=== PATIENT | male | born 1960 | race Caucasian/White ===

== ENCOUNTER 2023-07-25 18:45 | Emergency (ER) | payer MEDICARE, OTHER, SELFPAY ==
[2023-07-25 18:49] VITALS: BP 89/49
[2023-07-25 18:51] VITALS: BP 89/49; BMI 24.9
[2023-07-25 19:00] VITALS: BP 93/58
--- NOTE | 2023-07-25 19:11 | ED.GENMED ---
History of Present Illness
General
Chief Complaint: Catheter/Tube Problem
Source: patient and longterm
Exam Limitations: none
Time Seen by Provider: 07/25/23 18:54
Nursing documentation reviewed up to this point in time: agreed with
Travel History
Have you had any contact with someone who has COVID-19?: No
Do you have any symptoms of coronavirus? Fever > 100 degrees, chills, cough, shortness of breath, sore throat, loss of taste or smell, muscle aches, or headache?: No
History of Present Illness
History of Present Illness:
63-year-old male with a past medical history as documented presents from his longterm after PEG tube became dislodged. Patient has had chronic PEG tube for 4 years�he says it was initially placed due to dysphagia but he has since had
improvement in swallowing and has not used the PEG tube for quite some time. He says that today it was accidentally pulled out. He says that there was initially some bleeding from the site and it seems to have stopped and he does not have any pain
or any other complaints. He says he does not wish to have it replaced but he was sent to the emergency room to have the site evaluated.
Past History
Past History
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
ED Past Surgical History: Bowel resection (With colostomy) and Urological (Suprapubic Moctezuma catheter, nephrostomy)
Social History
Tobacco: Non-smoker
Alcohol: None
Drug: None
Personal:
Living: longterm
Employment: Not employed
Family History
Family History: Other (Reviewed and noncontributory)
Review of Systems
Review of Systems
All Other Systems: ROS reviewed and negative except as documented in HPI and ROS
ABD/GI: Reports other (Dislodged chronic PEG tube)
Phy Exam
Physical Exam
Physical Exam:
General: Awake, alert, oriented x3; chronically ill-appearing
Head: Normocephalic, atraumatic
Eyes: Conjunctiva normal
Throat: Airway intact, handling secretions
Neck: Trachea midline
Lungs: Breathing comfortably no distress
Heart: Regular rate
Abd: Soft, non distended, nontender to deep palpation; he has PEG site with no leakage, no bleeding, no signs of infection
Scores
Heart Failure Risk
Heart Failure Risk Score: Not Applicable
Heart Score for Chest Pain Patients
STEMI patient?: Not applicable
Withdrawal Assessment of Alcohol
Withdrawal Assessment Completed?: Not applicable
Course
Vital Signs
Initial and Last Documented VS:
Initial Vital Signs
BP
89/49
07/25/23 18:49
Last Documented Vital Signs
Temp Pulse Resp BP Pulse Ox
36.6 C 55 12 93/58 98
07/25/23 18:51 07/25/23 18:51 07/25/23 18:51 07/25/23 19:00 07/25/23 19:00
MDM/Problems Addressed
Differential Diagnosis Includes:
PEG dislodged
MDM/Problems Addressed:
63-year-old male with a chronic PEG tube presents after it was accidentally dislodged today. He had some slight bleeding at the site earlier which has subsided. He does not wish to have the PEG tube replaced. He has no pain or complaints here in
the emergency room. Vital signs stable�he does have some hypotension which is a chronic issue and he is on midodrine. Will plan to apply clean dressing and discharge back to longterm.
Chronic conditions affecting care:
Quadriplegia
*Pulse Oximetry
Patient hypoxic: no
*Critical Care Note
Total Time (30-74mins, 75-104mins- exclusive of procedures): Not Applicable
Data Reviewed
Source: patient and longterm
ED Attending Note
-
Portions of this chart may have been created with voice recognition software.� Occasional wrong word or��sound alike� substitutions may have occurred due to the inherent limitations of voice recognition software.
Discharge Plan
Departure
Patient Disposition: Home (Routine Discharge)
Date of Disposition: 07/25/23
Time of Disposition: 19:21
Patient with high blood pressure during this ER visit?: No
Discharge Problem:
Complaint associated with gastric tube
Instructions: Wound Care ED
Prescriptions:
No Action
acetaminophen 325 MG tablet
650 mg PO Q4H PRN (Reason: mild pain/temp>100F)
polyethylene glycol 3350 17 GRAMS powder in packet
17 grams PO HS PRN (Reason: constipation)
miconazole nitrate [Zeasorb AF] 71 GM powder
1 applic topical BID
Artificial Tears (cmc) 1 % Drops
1 drp BOTH EYES Q6H PRN (Reason: dry eyes)
citalopram 10 mg Tablet
10 mg PO DAILY
midodrine 5 mg Tablet
2.5 mg PO Q4HPRN PRN (Reason: SBP less than 80 ) Qty: 10 0RF
tizanidine 4 mg tablet
8 mg PO Q8
midodrine 5 mg tablet
5 mg PO TID
Rx Instructions:
hold if BP >130
guaifenesin [Siltussin SA] 100 mg/5 mL liquid
200 mg PO QID
baclofen 20 mg tablet
20 mg PO Q6
gabapentin 300 mg capsule
600 mg PO TID
loperamide 2 mg Capsule
2 mg PO Q8HPRN PRN (Reason: diarrhea )
ipratropium-albuterol 0.5 mg-3 mg(2.5 mg base)/3 mL Solution For Nebulization
3 ml INHALATION Q6
ipratropium-albuterol 0.5 mg-3 mg(2.5 mg base)/3 mL Solution For Nebulization
3 ml INHALATION Q4H PRN (Reason: SOB, wheezing)
dexamethasone 6 mg tablet
6 mg PO DAILY Qty: 4 0RF
amoxicillin-pot clavulanate 875-125 mg tablet
1 tab PO BID Qty: 3 0RF
lorazepam 0.5 mg tablet
0.5 mg PO DAILY Qty: 3 0RF
Activity Restrictions/Additional Instructions:
Thank you for visiting the Emergency Department at [facility].
1. Please schedule a follow up appointment as directed. Call first thing tomorrow morning to make an appointment.
2. If indicated, please take your medications as instructed and indicated on discharge paperwork.
3. If any of your symptoms do not improve, or persist, or become more severe within 6-12 hours, please return to the emergency department for further care.
4. Please return to the emergency department if you develop a headache, neck pain/stiffness, fever greater than 100.4F, chest pain, shortness of breath, persistent nausea, vomiting, slurred speech, difficulty walking, numbness/tingling, weakness,
signs of infection or any other symptoms that are worrisome to you.
Please call [phone] if you have any questions.
Interventions
Interventions:
*Risk Screen - Suicide Last Done: 07/25/23 18:51
*General Assessment Last Done: 07/25/23 18:51
*Neglect/Abuse Screening Last Done: 07/25/23 18:51
*ED COVID-19 Vaccine History Last Done: 07/25/23 18:51
KV-Nykfyz-Pjlrutxwcd Assessment Last Done: 07/25/23 18:59
ED-Male Genitourinary Assessment Last Done: 07/25/23 18:59
Discharge Date and Time
Print Language: ROMANSH
[2023-07-25 20:00] VITALS: BP 96/63
[2023-07-25 21:00] VITALS: BP 97/64
== END 2023-07-25 21:28 | disposition home or self-care (01) ==
LOC: EMR 18:45
PROVIDERS: EMERGENCY PHYSICIAN Emergency Medicine; FAMILY PHYSICIAN Family Medicine
DX: K94.20 Gastrostomy complication, unspecified (principal); I95.9 Hypotension, unspecified; G82.50 Quadriplegia, unspecified
CPT/HCPCS: 99283

== ENCOUNTER 2023-12-21 13:39 | Inpatient (IN) | payer MEDICARE, OTHER, SELFPAY ==
[2023-12-21] VITALS (20 sets, daily range): BP systolic 60–165; BP diastolic 43–86; BMI 20.8
[2023-12-21] MEDS: NSS 2000 ML IV (11:20)
[2023-12-21] MEDS: ZOSYN 100 IV ×3 (11:21→23:35)
[2023-12-21 11:32] LABS: Urine Albumin 1+ (Neg - Trace); Urine Bilirubin Negative (Negative); Urine Character Very Cloudy (Clear); Urine Color Yellow; Urine Glucose Negative (Negative); Urine Ketone 1+ (Negative); Urine Leukocyte 2+ (Negative); Urine Nitrite Positive (Negative); Urine Occult Blood 3+ (Negative); Urine Urobilinogen Negative (Neg - 1+)
[2023-12-21 11:33] LABS: % Basophils 0.1 % (0-2); % Immature Granulocytes 0.5 % (0-0.5); % Lymphocytes 5.8 % (20.5-51.1); % Monocytes 5.7 % (1.7-9.3); % Neutrophils 87.9 % (42.2-75.2); Absolute Immature Granulocytes 0.1 10^3/uL (0-0.05); Absolute Lymphocytes 0.9 10^3/uL (1.2-3.4); Absolute Monocytes 0.9 10^3/uL (0.1-0.6); Absolute Neutrophils 13.5 10^3/uL (1.4-6.5); Hemoglobin 11.7 g/dL (13.0-18.0); Mean Corp Hgb Conc. 32.5 g/dL (33.0-37.0); Mean Corpuscular Hgb 28.3 pg (27.0-31.0); Mean Corpuscular Volume 87.2 fL (80.0-94.0); Mean Platelet Volume 9.3 fL (7.4-10.4); Nucleated Red Blood Cells % 0 % (-); Platelet Count 232 10^3/uL (130-400); Red Blood Cell Count 4.13 10^6/uL (4.70-6.10); Red Cell Dist. Width 15.4 % (11.5-14.5); White Blood Cell Count 15.3 10^3/uL (4.8-10.8)
[2023-12-21 11:37] LABS: Venous Blood Gas B.E. 6.1 mmol/L (-4 to +4); Venous Blood Gas HCO3 30.6 mmol/L (22-27); Venous Blood Gas O2 Sat % 99.7 %; Venous Blood Gas pCO2 43 mmHg (35-48); Venous Blood Gas pH 7.46 (7.32-7.43); Venous Blood Gas pO2 131 mmHg (30-50)
[2023-12-21 11:40] LABS: Lactic Acid 1.3 mmol/L (0.7-2.0)
[2023-12-21 11:41] LABS: ALT (SGPT) 13 U/L (0-50); AST (SGOT) 20 U/L (17-59); Albumin 3.8 g/dl (3.5-5.0); Alkaline Phosphatase 106 U/L (38-126); Blood Urea Nitrogen 34 mg/dl (9-20); Calcium 9.2 mg/dl (8.4-10.2); Carbon Dioxide 23 mmol/L (22-30); Chloride 104 mmol/L (98-107); Glucose 140 mg/dl (70-99); Potassium 4.1 mmol/L (3.5-5.1); Sodium 140 mmol/L (135-145); Total Bilirubin 0.7 mg/dl (0.2-1.3); Total Protein 6.9 g/dl (6.3-8.2); Urine Bacteria Many (Negative); Urine Squamous Cell 0-2 /LPF (Few); eGFR > 60.00
--- NOTE | 2023-12-21 11:48 | ED.GENMED ---
History of Present Illness
General
Chief Complaint: Pneumonia Symptoms
Time Seen by Provider: 12/21/23 10:58
History of Present Illness
History of Present Illness:
63-year-old male with history of CVA with paraplegia and hypotension on midodrine presenting to the emergency department for concern of pneumonia. Patient presents from nursing facility where he was recently diagnosed with pneumonia 2 days ago,
started on a Z-Shalom. Patient however without symptom improvement. Per medics, noted to be hypotensive with low oxygenation. Per nursing facility, febrile prior to arrival, did receive Tylenol. Patient admits to cough and difficulty breathing,
otherwise denies chest pain or abdominal pain. He denies additional acute medical complaints.
Past History
Past History
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
ED Past Surgical History: Bowel resection (With colostomy) and Urological (Suprapubic Moctezuma catheter, nephrostomy)
Social History
Tobacco: Non-smoker
Alcohol: None
Drug: None
Personal:
Living: group home
Employment: Not employed
Family History
Family History: Other (Reviewed and noncontributory)
Phy Exam
Physical Exam
Physical Exam:
General: Well-appearing, no clinical signs of dehydration, nontoxic and in no acute distress
HEENT: protecting airway
Neck: appears supple
CV: Tachycardic
Resp: No accessory muscle use, no increased work of breathing, rhonchorous breath sounds bilaterally
Abd: Soft and non-distended, no tenderness to palpation, normal bowel sounds
Extremities: No deformities, no swelling
Neuro: alert, bilateral upper and lower extremity contractures, no motor, reported as chronic
: deferred
Rectal: deferred
Psych: Normal affect
Skin: Intact
Course
Orders/Labs/Results
Orders:
Orders
12/21/23 10:59
Electrocardiogram (*1) Urgent
Reason for Study: Other
Other Reason for Exam: Possible Sepsis
EKG- Treatment ONCE
CR Chest Portable - 1 View Urgent
Comment:
Reason For Exam: sob
Reason Study Needs to be Portable: Unable to Transport
12/21/23 11:12
0.9% Sodium Chloride 1000 ml [Nss] 2,000 ml IV NOW STA
Piperacillin/Tazo 4.5 Gram [Zosyn] 4.5 gram in 100 ml IV NOW
12/21/23 11:17
Complete Blood Count/With Diff Urgent
Comprehensive Metabolic Panel Urgent
Lactic Acid Q4H
Comment: ON ICE, CANCEL 2ND ORDER IF FIRST LACTIC ACID LEVEL <2
Urinalysis Reflex To Culture Urgent
Date Specimen was Collected: 12/21/23
Time Specimen was Collected: 10:59
Urine Microscopic Reflex Cult Urgent
Venous Blood Gas Urgent
%Oxygen/Room Air: 30
Blood Culture Urgent
ANDREW Source: Blood/Venous
Specimen Description:
Urine Culture Urgent
ANDREW Source: U
Specimen Description:
Date Specimen was Collected: 12/21/23
Time Specimen was Collected: 10:59
12/21/23 11:20
COVID-19 Antigen Urgent
Source: Nasal Swab
Blood Culture Routine
ANDREW Source: Blood/Venous
Specimen Description:
Influenza A+B Rapid Molecular Urgent
ANDREW Source: Nasal Swab
Specimen Description:
Abnormal Lab Results
12/21/23
11:17
WBC 15.3 H 10^3/uL
(4.8-10.8)
RBC 4.13 L 10^6/uL
(4.70-6.10)
Hgb 11.7 L g/dL
(13.0-18.0)
Hct 36.0 L %
(39.0-52.0)
MCHC 32.5 L g/dL
(33.0-37.0)
RDW 15.4 H %
(11.5-14.5)
Abs Immat Gran (auto) 0.1 H 10^3/uL
(0-0.05)
Absolute Neuts (auto) 13.5 H 10^3/uL
(1.4-6.5)
Absolute Lymphs (auto) 0.9 L 10^3/uL
(1.2-3.4)
Absolute Monos (auto) 0.9 H 10^3/uL
(0.1-0.6)
Neutrophils % 87.9 H %
(42.2-75.2)
Lymphocytes % 5.8 L %
(20.5-51.1)
VBG pH 7.46 H
(7.32-7.43)
VBG pO2 131 H mmHg
(30-50)
VBG HCO3 30.6 H mmol/L
(22-27)
BUN 34 H mg/dl
(9-20)
Creatinine 0.4 L mg/dL
(0.7-1.3)
Glucose 140 H mg/dl
(70-99)
Urine Ketones 1+ A
(Negative)
Ur Occult Blood Reflex 3+ A
(Negative)
Urine Nitrite (Reflex) Positive A
(Negative)
Leukocyte Esterase Rfl 2+ A
(Negative)
Urine RBC 11-15 A /HPF
(0-2)
Urine WBC (Reflex) 11-15 A /HPF
(0-5)
Urine Bacteria (Reflex) Many A
(Negative)
Urine Albumin (Reflex) 1+ A
(Neg - Trace)
12/21/23 11:17
12/21/23 11:17
Vital Signs
Initial and Last Documented VS:
Initial Vital Signs
Pulse Ox
94
12/21/23 10:56
Last Documented Vital Signs
Temp Pulse Resp BP Pulse Ox
100.5 F H 101 21 72/47 89
12/21/23 11:03 12/21/23 11:30 12/21/23 11:30 12/21/23 11:30 12/21/23 11:03
MDM/Problems Addressed
MDM/Problems Addressed:
63-year-old male with history of CVA with quadriplegia presenting to the emergency department for concern of pneumonia. Vital signs on arrival significant for tachycardia, fever, hypoxia, hypotension.
On exam, patient is awake and alert, no apparent distress, however unstable vital signs. Patient with rhonchorous breath sounds bilaterally. Vital signs concerning for infection, though specifically septic shock, likely from respiratory source.
IV access obtained bilaterally. Plan for cultures, IV fluids, lactic acid. Given known source, will start broad-spectrum antibiotics.
12:00 - Lactic acid within normal limits. Patient does have leukocytosis and chest x-ray consistent with pneumonia. Patient remains hypotensive, however fluid responsive. Again meeting criteria for septic shock, receiving full 30 cc/kg fluid
bolus. Plan for admission.
*EKG
Interpreted by ED Provider?: Yes
EKG Intrepretation Date: 12/21/23
EKG Intrepretation Time: 11:52
Interpretation: normal
Comparison EKG: no changes (12/21/22)
Heart Rate: 104
Rate: tachycardiac
Rhythm: sinus
[place]: normal axis
Interval: normal interval
QRS Pattern: normal QRS
Ischemia: no ischemia
*Critical Care Note
Total Time (30-74mins, 75-104mins- exclusive of procedures): 45
comment:
The high probability of a clinically significant, sudden or life threatening deterioration of the respiratory and distributive system(s) required my full and direct attention, intervention and personal management. The aggregate critical care time
was 45 minutes. This time is in addition to time spent performing reported procedures but includes the following:
[x] Data Review and interpretation
[x] Patient assessment and monitoring of vital signs
[x] Documentation
[x] Medication orders and management
ED Attending Note
-
Portions of this chart may have been created with voice recognition software.� Occasional wrong word or��sound alike� substitutions may have occurred due to the inherent limitations of voice recognition software.
Discharge Plan
Departure
Prescriptions:
No Action
acetaminophen 325 MG tablet
650 mg PO Q6HPRN PRN (Reason: mild pain/temp>100F)
polyethylene glycol 3350 17 GRAMS powder in packet
17 grams PO HSPRN PRN (Reason: constipation)
miconazole nitrate [Zeasorb AF] 71 GM powder
1 applic topical BID
citalopram 10 mg Tablet
10 mg PO DAILY
tizanidine 4 mg tablet
8 mg PO QID
baclofen 20 mg tablet
40 mg PO HS
loperamide 2 mg Capsule
2 mg PO Q8HPRN PRN (Reason: diarrhea )
ipratropium-albuterol 0.5 mg-3 mg(2.5 mg base)/3 mL Solution For Nebulization
3 ml INHALATION R QID
ipratropium-albuterol 0.5 mg-3 mg(2.5 mg base)/3 mL Solution For Nebulization
3 ml INHALATION R Q4HPRN PRN (Reason: SOB, wheezing)
lorazepam 0.5 mg tablet
0.5 mg PO DAILY Qty: 3 0RF
ketoconazole [Nizoral] 2 % Shampoo
1 applic TOPICAL WE
lidocaine 4 % Adhesive Patch,Medicated
1 patch TOPICAL DAILYPRN PRN (Reason: r proximal humerus)
azithromycin 250 mg Tablet
250 mg PO HS
baclofen 20 mg Tablet
20 mg PO BID
gabapentin 800 mg Tablet
800 mg PO TID
ibuprofen [Advil] 200 mg Tablet
600 mg PO Q6HPRN PRN (Reason: high temp/mild pain)
magnesium citrate Solution
150 ml PO BIDPRN PRN (Reason: if no bm aftr miralax)
midodrine 2.5 mg Tablet
2.5 mg PO Q4HPRN PRN (Reason: sbp less than 80)
nystatin 100,000 unit/gram Powder
1 applic TOPICAL DAILYPRN PRN (Reason: peg tub- removal site)
nystatin 100,000 unit/gram Powder
1 applic TOPICAL DAILY
Rx Instructions:
peg tube-removal site
carboxymethylcellulose sodium 1 % Drops
1 drp BOTH EYES Q6HPRN PRN (Reason: dry eyes)
midodrine 5 mg tablet
5 mg PO TID
Referrals:
Mansoor Aguilar MD [Family Provider] -
Interventions
Interventions:
*Risk Screen - Suicide Last Done: 12/21/23 10:56
*General Assessment Last Done: 12/21/23 10:56
*Neglect/Abuse Screening Last Done: 12/21/23 10:56
*ED COVID-19 Vaccine History Last Done: 12/21/23 10:56
ED- Cardiac Assessment Last Done: 12/21/23 10:56
ED- Pulmonary Assessment Last Done: 12/21/23 10:56
Discharge Date and Time
Print Language: SPANISH
[2023-12-21 11:55] LABS: COVID-19 Antigen Negative (Negative)
--- NOTE | 2023-12-21 12:43 | HPS.HSE ---
Family Physician
-
Family Physician: Mansoor Aguilar
Chief Complaint
-
sob
lethargic.
History of Present Illness
63-year-old male with history of CVA with quadriplegic, hypotension on midodrine presenting to the emergency department for concern of pneumonia. Patient presents from nursing facility where he was recently diagnosed with pneumonia 2 days ago,
started on a Z-Shalom. Patient however without symptom improvement. patient fever and sleeping more than usual. he was very weak and tired. at [facility], he required 2l of oxygen. at present patient denied headache, dizziness, syncopal episode.
patient stated improvement in cough. Patient denied any chest pain or short of breath. Patient denied any abdominal pain, nausea, vomiting, diarrhea. He has a Moctezuma catheter in place.
. Patient was noted hypotensive and hypoxic. patient received Zosyn, fluids admitting for further management.
Medical History
Past Medical History
Past Medical History: Reports Other
Additional Past Medical History:
acute flaccid quadriplegia
Bladder spasm
Colostomy
Pneumonia
Oropharyngeal dysphagia
Controlled type 2 diabetes
Muscle spasm
Moctezuma cath
Past Surgical History: Reports None
Social History
Tobacco: Non-smoker
Alcohol: None
Drug: None
Personal:
Living: With Family
Family History
Family History: Not pertinent
Allergies / Home Medications
Allergies reflects when Allergies were last updated in [facility].
Home Medications with original date entered in [facility]
Allergy/Medication List:
Allergies
Allergy/AdvReac Type Severity Reaction Status Date / Time
adhesive Allergy Rash Verified 06/26/22 17:19
latex Allergy SEE BELOW Verified 06/26/22 17:19
vancomycin Allergy trunk/back Verified 06/26/22 17:19
red rash
Home Medications
acetaminophen 325 mg tablet 650 mg PO Q6HPRN PRN mild pain/temp>100F 08/30/21
miconazole nitrate 2 % topical powder (Zeasorb AF) 1 applic topical BID groin irritation 09/21/21
polyethylene glycol 3350 17 gram oral powder packet 17 grams PO HSPRN PRN constipation 09/21/21
citalopram 10 mg tablet 10 mg PO DAILY depression/anxiety 05/22/22
baclofen 20 mg tablet 40 mg PO HS Muscle Spasms 12/21/22
ipratropium 0.5 mg-albuterol 3 mg (2.5 mg base)/3 mL nebulization soln 3 ml inhalation R Q4HPRN PRN SOB, wheezing 12/21/22
ipratropium 0.5 mg-albuterol 3 mg (2.5 mg base)/3 mL nebulization soln 3 ml inhalation R QID Lung/Breathing Issues 12/21/22
loperamide 2 mg capsule 2 mg PO Q8HPRN PRN diarrhea 12/21/22
tizanidine 4 mg tablet 8 mg PO QID Muscle Spasms 12/21/22
lorazepam 0.5 mg tablet 0.5 mg PO DAILY Multiple Sclerosis #3 tabs 12/26/22
azithromycin 250 mg tablet 250 mg PO HS infection 12/21/23
baclofen 20 mg tablet 20 mg PO BID muscle spasms 12/21/23
carboxymethylcellulose sodium 1 % eye drops 1 drp BOTH EYES Q6HPRN PRN dry eyes 12/21/23
gabapentin 800 mg tablet 800 mg PO TID pain 12/21/23
ibuprofen 200 mg tablet (Advil) 600 mg PO Q6HPRN PRN high temp/mild pain 12/21/23
ketoconazole 2 % shampoo 1 applic topical WE Skin Issues 12/21/23
lidocaine 4 % topical patch 1 patch topical DAILYPRN PRN r proximal humerus 12/21/23
magnesium citrate 150 ml PO BIDPRN PRN if no bm aftr miralax 12/21/23
midodrine 2.5 mg tablet 2.5 mg PO Q4HPRN PRN sbp less than 80 12/21/23
midodrine 5 mg tablet 5 mg PO TID blood pressure 12/21/23
nystatin 100,000 unit/gram topical powder 1 applic topical DAILY Skin Issues 12/21/23
nystatin 100,000 unit/gram topical powder 1 applic topical DAILYPRN PRN peg tub- removal site 12/21/23
Review of Systems
-
Constitutional: Reports No Symptoms
EENT: Reports No Symptoms
Respiratory: Reports Cough and Trouble Breathing
Cardiac: Reports No Symptoms
Abdomen/GI: Reports No Symptoms
: Reports Moctezuma
Musculoskeletal: Reports No Symptoms
Skin: Reports No Symptoms
Neurological: Reports No Symptoms
Endocrine: Reports No Symptoms
Hematologic/Lymphatic: Reports No Symptoms
Psych: Reports No Symptoms
Physical Exam
Vital Signs
Vital Signs
Temp Pulse Resp BP Pulse Ox
100.5 F H 90 15 91/58 89
12/21/23 11:03 12/21/23 12:30 12/21/23 12:30 12/21/23 12:30 12/21/23 11:03
Physical Exam
General: Well Developed, Well Nourished and No Apparent Distress
HEENT: NormoCephalic, Moist mucous membranes and Atraumatic
Respiratory: Rhonchi
Cardiac: S1/S2 and Regular Rhythm; No Murmur or Rub
GI: Soft, Non Tender, Non Distended and Normal Bowel Sounds; No Organomegaly
Rectal: Deferred by Provider
Musculoskeletal: No Clubbing, No Cyanosis, No Edema and Other ( quadriplegic)
Skin: No Rash
Neuro: AO x 3 and Nonfocal/grossly intact
Psych: Calm
Laboratory Results
-
12/21/23 11:17
12/21/23 11:17
Laboratory Results
Lactic Acid Cancelled 12/21/23 15:00
Total Bilirubin 0.7 mg/dl (0.2-1.3) 12/21/23 11:17
AST 20 U/L (17-59) 12/21/23 11:17
ALT 13 U/L (0-50) 12/21/23 11:17
Alkaline Phosphatase 106 U/L (38-126) 12/21/23 11:17
Data Reviewed
-
Diagnostic Radiology: Report Reviewed by me
Lab Data: Labs Reviewed by me
Impression/Plan
-
#acute hypoxic respiratory failure
# severe sepsis as evident by hypotension and tachycardia, leucocytosis, fever
- COVID-negative, negative for influenza and
- chest x-ray with impression of Chronic atelectasis of the left lower lobe.Increased reticulonodular markings throughout the right lung, patchy distribution. See above discussion.
- blood culture sent from ER
- continue IV Zosyn
- fluids continued
- continue supplemental oxygen to keep sat greater than 92
-Wean as tolerated
-Nebs as needed
#Anemia of chronic disease
- hemoglobin stable at 11.7
-No active bleeding
-Continue to monitor
#UTI likely Moctezuma cath associated.
#chronic urinary retention, patient has Moctezuma cath
-Zosyn continued
#Muscle Spasms due to Quadriplegia
-Continue Tizanidine
-Continue gabapentin
-Continue baclofen
#Chronic hypotension secondary to autonomic dysfunction polypharmacy
-Continue Midodrine.
#Spastic quadriplegia with ambulatory dysfunction secondary to cervical cord infarction status post colostomy and suprapubic catheter
#Hx of Bowel resection
-Colostomy care
-Dysphagia diet
-Dietary consult
-speech consult
#Anxiety/Depression
-Continue Lorazepam
-Continue Celexa
�
DVT prophylaxis: heparin sq
DNR/DNI
--- NOTE | 2023-12-21 13:00 | W.PN.UPDATE ---
Update Note
Progress Note Update
This note serves as an addendum to the H&P by flight hostess ZORA Maile ROCHA
HPI:
63 M from the facility HX CVA with quadriplegia, COPD, chronic hypotensive on midodrine evaluating for concern with sepsis.
Recently Dxed PNA 2 days ago. Currently on on Z-tomas.
Per nursing facility, febrile prior to arrival, did receive Tylenol.
ROS: cough and difficulty breathing. No chest pain or abdominal pain.
At ER: Not toxic looking. T 100.5 Hypoxic, tachy, hypotensive 91/58 but BP is improving with fluids. POx 89 % on RA
PE: b/l diffuse rhonchi on ant chest , but stable on nasal cannula.
Labs: leukocytosis [facility] 15.3 . Lactic acid is normal. BUN 34. Nl GFR
NEG Covid
VB.46/pCO2 43/ pO2 131
UA abnormal not definitive for UTI
CXR: Chronic atelectasis of the left lower lobe. Increased reticulonodular markings throughout the right lung, patchy distribution.
ASSESSMENT & PLAN
Sepsis
Presumed R sided PNA / Presumed HAP with associated hypoxia Plus or minus CAUTI
Acute on chr Hypotensive
Acute hypoxic RI
Abn UA
- BCx and UCx sent
- Septic fluid with IV NS
- Empiric Zosyn
- O2 support - on 2 L so far ; Keep POx above 94%
- cont. chr Midodrine
Chronic indwelling Moctezuma cath-
- dark yellow clear urine in the bag
- await Cath UCx
Chronic condition:
HX CVA with quadriplegia
COPD
Chronic hypotensive on midodrine
- cont. all OP Meds
DVT Px: LMWH
Code: Full code
IMU
--- NOTE | 2023-12-21 15:20 | PTOTSP ---
Speech Language Pathology
Pt seen for clinical bedside swallow evaluation. Pt reported he has upper and lower partial dentures, which are at facility. He still eats 'slightly softer foods' with dentures in place. P.O. trials of puree, regular solids, and thin liquids
provided. Slightly prolonged mastication secondary to dentition, but this was function. Adequate bolus formation and A-P transit noted with no oral residue. No overt signs of aspiration. Discussed diet level options with pt, as pt tends to
prefer softer solids on recent admissions. Pt opting for IDDSI 6.
Recommend:
(1) IDDSI Level 6 (Soft/Bite-Sized) and Thin liquids
(2) General aspiration precautions
(3) Meds as tolerated
(4) LOAD TESTER to sign off. Please reconsult as indicated
[2023-12-21] MEDS: NSS 1000 IV (16:00)
[2023-12-21] MEDS: NEURONTIN 800 MG PO ×2 (16:48→22:00)
[2023-12-21] MEDS: ProAmatine 5 MG PO ×2 (16:49→22:01)
[2023-12-21] MEDS: ZANAFLEX 8 MG PO ×2 (17:00→22:00)
[2023-12-21] MEDS: LIORESAL 20 MG PO (17:00)
--- NOTE | 2023-12-21 17:00 | WOUNDNOTE ---
Patient admitted with: Sepsis. Patient resides at SNF.
History: from H+P
quadriplegia
Bladder spasm
Colostomy
Pneumonia
Oropharyngeal dysphagia
Controlled type 2 diabetes
Muscle spasm
Moctezuma cath (Suprapubic).
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 Mild discolored red rash like skin (eczema appearing too) on sacral/buttocks/ischium. Small dry scabs Le's/ankle/foot/R
thigh suspect r/t his poor skin condition (eczema?), fragile skin. L posterior hip dull slow to corbin red skin (stage 1 pressure injury). Bilateral heels with discolored dull red scars. Abdominal MASD r/t drainage from an old feeding tube removal
site that never fully closed.
Appetite: on a IDDSI 6, soft and bite sized diet.
Pressure redistribution devices in place: Centrella Max air bed. Patient immobile. TruVue lite boots.
Plan: Sacral shaped silicone border foam applied to sacrum. Silicone foam applied bilateral ischium, L posterior hip. Miconazole powder on order. Calazime applied to markos/scrotal red skin. Abdominal dressing changed. Patient turned to R semi side
lying position with help from ASTON Brunner. TruVue lite boots reapplied after protective foam dressings applied to heels. Patient at risk for worsening skin/wounds despite preventative measures in place due quadriplegia, fragile skin, bony
prominences/scars.
Will confirm orders with hospitalist and discussed with STELLA Pederson.
Will update care plan and will follow as needed.
--- NOTE | 2023-12-21 17:03 | WOUNDNOTE ---
ABDOMEN (old feeding tube site)
--- NOTE | 2023-12-21 17:05 | WOUNDNOTE ---
[facility] RN note: Patient admitted with: Sepsis. Patient resides at SNF.
History: from H+P
quadriplegia
Bladder spasm
Colostomy
Pneumonia
Oropharyngeal dysphagia
Controlled type 2 diabetes
Muscle spasm
Moctezuma cath (Suprapubic).
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 Mild discolored red rash like skin (eczema appearing too) on sacral/buttocks/ischium. Small dry scabs Le's/ankle/foot/R
thigh suspect r/t his poor skin condition (eczema?), fragile skin. L posterior hip dull slow to crobin red skin (stage 1 pressure injury). Bilateral heels with discolored dull red scars. Abdominal MASD r/t drainage from an old feeding tube removal
site that never fully closed.
Appetite: on a IDDSI 6, soft and bite sized diet.
Pressure redistribution devices in place: Centrella Max air bed. Patient immobile. TruVue lite boots.
Plan: Sacral shaped silicone border foam applied to sacrum. Silicone foam applied bilateral ischium, L posterior hip. Miconazole powder on order. Calazime applied to markos/scrotal red skin. Abdominal dressing changed. Patient turned to R semi side
lying position with help from ASTON Brunner. TruVue lite boots reapplied after protective foam dressings applied to heels. Patient at risk for worsening skin/wounds despite preventative measures in place due quadriplegia, fragile skin, bony
prominences/scars.
Will confirm orders with hospitalist and discussed with STELLA Pederson.
Will update care plan and will follow as needed.
--- NOTE | 2023-12-21 17:05 | WOUNDNOTE ---
Colostomy appliance last changed 12/20/23 which is intact without leakage. Stool formed brown. Pouch emptied. Colostomy change kit/supplies left in room. Nursing can perform routine colostomy care/appliance changes.
--- NOTE | 2023-12-21 17:05 | WOUNDNOTE ---
ABDOMEN (old feeding tube site)
--- NOTE | 2023-12-21 17:06 | WOUNDNOTE ---
L ISCHIUM/POSTERIOR HIP (with photo flash)
--- NOTE | 2023-12-21 17:08 | WOUNDNOTE ---
L ISCHIUM (with photo flash)
--- NOTE | 2023-12-21 17:09 | WOUNDNOTE ---
SACRAL/BUTTOCKS/FRANCINE
[2023-12-21] MEDS: DESENEX/MITRAZOL/ZEASORB 1 APPLIC TOPICAL (20:20)
[2023-12-21] MEDS: HEPARIN 5000 UNITS SC (20:20)
[2023-12-21] MEDS: LIORESAL 40 MG PO (22:01)
[2023-12-22] VITALS (24 sets, daily range): BP systolic 106–171; BP diastolic 65–93
[2023-12-22] MEDS: NSS 1000 IV ×2 (03:48→16:44)
[2023-12-22 05:04] LABS: Hematocrit 34.4 % (39.0-52.0); Hemoglobin 11.1 g/dL (13.0-18.0); Mean Corp Hgb Conc. 32.3 g/dL (33.0-37.0); Mean Corpuscular Hgb 29.1 pg (27.0-31.0); Mean Corpuscular Volume 90.3 fL (80.0-94.0); Mean Platelet Volume 9.4 fL (7.4-10.4); Platelet Count 222 10^3/uL (130-400); Red Blood Cell Count 3.81 10^6/uL (4.70-6.10); Red Cell Dist. Width 15.2 % (11.5-14.5); White Blood Cell Count 14.3 10^3/uL (4.8-10.8)
--- NOTE | 2023-12-22 05:19 | PTCARENOTE ---
No acute events overnight. Labile BPs. Maps above 65. Afebrile. Remains on 4 liters NC.
[2023-12-22] MEDS: ZOSYN 100 IV ×4 (05:30→23:32)
[2023-12-22] MEDS: ZANAFLEX 8 MG PO ×4 (08:56→20:55)
[2023-12-22] MEDS: LIORESAL 20 MG PO ×2 (08:57→16:47)
[2023-12-22] MEDS: NEURONTIN 800 MG PO ×3 (08:57→20:55)
[2023-12-22] MEDS: ATIVAN 0.5 MG PO (08:57)
[2023-12-22] MEDS: ProAmatine 5 MG PO (08:57)
[2023-12-22] MEDS: CELEXA 10 MG PO (08:58)
[2023-12-22] MEDS: HEPARIN 5000 UNITS SC ×2 (08:58→20:54)
[2023-12-22] MEDS: DESENEX/MITRAZOL/ZEASORB 1 APPLIC TOPICAL ×2 (08:58→20:55)
--- NOTE | 2023-12-22 10:50 | PTCARENOTE ---
Pt paris to 84% slowly increased O2 now up to 10 l RSP called for midflow tubing
--- NOTE | 2023-12-22 14:25 | W.PN.HOSP.TC ---
Today's Communication/Plan
-
see outlined plan
Assessment / Plan
Assessment / Plan
Assessment:
Acute on chronic hypoxic respiratory failure
- on 12L, wean as able to 4L NC
Severe Sepsis (fever, leucocytosis, tachycardia) with hypotension on top of Chronic hypotension secondary to autonomic dysfunction/polypharmacy
CAUTI - POA
Possible PNA
- continue IVF per sepsis protocol
- continue chronic midodrine
- continue empiric Zosyn, day 1
- note was on Azithromycin at [facility] for pneumonia
- follow cultures
- prn nebs
Anemia of chronic disease
- hemoglobin stable at 11.7
- No active bleeding
- Continue to monitor
Chronic urinary retention
Muscle Spasms due to Quadriplegia
- continue Tizanidine
- continue gabapentin
- continue baclofen
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
Hx of Bowel resection
- Colostomy care
- Dysphagia diet
- Dietary/Speech evals
Anxiety/Depression
- continue Lorazepam
- continue Celexa
Chronic wounds - all present on arrival
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
- Mild discolored red rash like skin (eczema appearing too) on sacral/buttocks/ischium.
- Small dry scabs Le's/ankle/foot/R thigh suspect r/t his poor skin condition (eczema?), fragile skin.
- L posterior hip dull slow to corbin red skin (stage 1 pressure injury).
- Bilateral heels with discolored dull red scars.
- Abdominal MASD r/t drainage from an old feeding tube removal site that never fully closed.
- follow wound care recs
�
DVT prophylaxis: SC heparin
Code: DNR/DNI
Anticipated Discharge: > 48 hours
Subjective/Interval History
-
Date of Service: December 22, 2023
no complaints at present
on 12L midflow cannula, on 4L baseline
Objective Data
-
Labs:
Laboratory Results
12/22/23
04:40
WBC 14.3 H
Hgb 11.1 L
Hct 34.4 L
Plt Count 222
Vital Signs:
Vital Signs
Temp Pulse Resp BP Pulse Ox
97.8 F 80 15 106/65 93
12/22/23 11:00 12/22/23 09:00 12/22/23 09:00 12/22/23 09:00 12/22/23 10:53
I&O
12/21/23 12/22/23 12/23/23
06:59 06:59 06:59
Intake Total 2220 / 2220 420 / 420
Output Total 1100 / 1100 275 / 275
Balance 1120 / 1120 145 / 145
Physical Exam
-
General: No Apparent Distress and Appears Chronically Ill
HEENT: Normocephalic
Respiratory: Rhonchi
Cardiac: Regular Rhythm and S1/S2
GI: Soft
Neuro: AO x 3
Psych: Calm
Data Reviewed
-
Total Time Spent with Patient (in minutes): 47
Labs: Labs Reviewed by me
--- NOTE | 2023-12-22 16:06 | CM ---
Patient from [facility] with Hx quadriplegia, colostomy with Dx Acute on chronic hypoxic respiratory failure, Severe Sepsis. O2 12L midflow. Dysphagia diet. Receiving IV Abx. Wound care for sacral decub. Per nursing assessment; A/O. PT; No
skilled PT needed.
Spoke with [facility]; the patient resides there in LTC on an [place] bed hold. He is able to assist with his care, and uses a motorized w/c for mobility. The patient was receiving PT through [facility]. He has an air
mattress. The ph for report [phone], fax [phone].
Plan contact patient/family prior to return to SNF.
Plan return to [facility] when medically ready.
[2023-12-22] MEDS: ProAmatine PO ×2 (16:46→20:54)
--- NOTE | 2023-12-22 16:50 | PTCARENOTE ---
Pt POX 100% O2 down to 8l
--- NOTE | 2023-12-22 18:17 | PTCARENOTE ---
Pt desat to 86 88 % placed on 10 l O2
[2023-12-22] MEDS: LIORESAL 40 MG PO (20:53)
--- NOTE | 2023-12-22 23:07 | PTCARENOTE ---
Patients daughter stated that she was concerned that patient aspirated during dinner. She witnessed patient choking after eating a bite of chicken and his 02 sats drop in the 80s. 02 was increased to 10 liters from 4. radiotelephone technical operator provider made aware and
ordered stat chest xray. Provider aware of results and ordered patient to be NPO with meds pending new speech eval.
[2023-12-22] MEDS: DECADRON 4 MG IV (23:32)
--- NOTE | 2023-12-22 23:32 | W.PN.UPDATE ---
Update Note
Progress Note Update
RN reports per daughter pt may have choked on breakfast and dinner today. Requesting cxr. Pt does have hx of asp pna.
Oxygen requirement increasing throughout day. Now on 15L.
Lungs very rhonchus and wheezes occasionally
CXR: RAPID INTERVAL INCREASE in LARGE AIRSPACE CONSOLIDATIONS in the right upper lobe, right middle lobe, right lower lobe, and left lower lobe since 12/21/2023. Diagnostic possibilities are (1) acute aspiration pneumonitis or (2) severe pneumonia.
Will add decadron for wheezes and hypoxia.
on zosyn
[2023-12-22] MEDS: DUONEB 3 ML INH (23:36)
[2023-12-23] VITALS (17 sets, daily range): BP systolic 110–185; BP diastolic 64–95
[2023-12-23] MEDS: NSS 1000 IV (04:18)
[2023-12-23 04:50] LABS: Hematocrit 36.3 % (39.0-52.0); Hemoglobin 12.1 g/dL (13.0-18.0); Mean Corp Hgb Conc. 33.3 g/dL (33.0-37.0); Mean Corpuscular Hgb 28.9 pg (27.0-31.0); Mean Corpuscular Volume 86.8 fL (80.0-94.0); Mean Platelet Volume 9.2 fL (7.4-10.4); Platelet Count 231 10^3/uL (130-400); Red Blood Cell Count 4.18 10^6/uL (4.70-6.10); White Blood Cell Count 13.1 10^3/uL (4.8-10.8)
[2023-12-23 05:14] LABS: Blood Urea Nitrogen 14 mg/dl (9-20); Carbon Dioxide 21 mmol/L (22-30); Chloride 107 mmol/L (98-107); Estimated Creatinine Clearance 99 ml/min; Glucose 184 mg/dl (70-99); Potassium 4.2 mmol/L (3.5-5.1); Sodium 141 mmol/L (135-145); eGFR > 60.00
[2023-12-23] MEDS: ZOSYN 100 IV ×4 (06:06→23:26)
[2023-12-23] MEDS: ProAmatine 5 MG PO (08:29)
[2023-12-23] MEDS: NEURONTIN 800 MG PO ×3 (08:29→20:29)
[2023-12-23] MEDS: CELEXA 10 MG PO (08:30)
[2023-12-23] MEDS: DECADRON 4 MG IV ×3 (08:30→23:26)
[2023-12-23] MEDS: ATIVAN 0.5 MG PO ×2 (08:30→20:29)
[2023-12-23] MEDS: DESENEX/MITRAZOL/ZEASORB 1 APPLIC TOPICAL ×2 (08:31→20:29)
[2023-12-23] MEDS: LIORESAL 20 MG PO ×2 (08:31→17:50)
[2023-12-23] MEDS: HEPARIN 5000 UNITS SC ×2 (08:31→20:28)
[2023-12-23] MEDS: ZANAFLEX 8 MG PO ×3 (08:45→20:29)
--- NOTE | 2023-12-23 09:46 | CON.PUL ---
Consultation
Consultation Request
Date/Time Consultation Requested: 12/22/2023 - 2341
Date/Time Consultation Performed: 12/23/2023909
Requesting Provider: CAN Chavis
Performing Provider: Melvin Motta MD
Reason for Consultation: Hypoxia/Aspiration PNA
Medical History
-
Chief Complaint: Fevers, fast heart rate and hypoxia
History of Present Illness:
63-year-old male with a past medical history of quadriplegia s/p spinal infarct (2014) s/p colostomy/suprapubic catheter/PEG, history of cardiopulmonary arrest due to sepsis (08/2021), stage IV sacral decubitus ulcer s/p resection with diverting
colostomy, personal history of COVID-19 (01/2021), chronic hypotension on midodrine, anemia of chronic disease, oropharyngeal dysphagia s/p G-tube, history of CVA (2012), neurogenic bladder s/p chronic suprapubic catheter, paroxysmal A-fib in the
setting of sepsis (2018), DM type II, history of MRSA, depression/anxiety and history of aspiration ammonia who presents with fevers, low oxygen and tachycardia. Patient reportedly was diagnosed with pneumonia 2 days ago and prescribed Zithromax
but symptoms persisted. Patient has been more lethargic lately and weak. In the ER he was febrile to 100.5 �F, pulse rate 104, breathing at 14 breaths/minute, BP was low at 60/43 and saturating 94% on 2 L/min nasal cannula. Labs showed
leukocytosis to 15.3, anemia to 11.7, with urinalysis positive for UTI with positive nitrites, +2 leukocyte esterase and 11�15 urine WBC with many urine bacteria. COVID antigen was negative. Blood cultures + urine cultures were collected. CXR
obtained showing chronic atelectasis of the left lower lobe with increased reticulonodular markings in the right lung. IVF with NS 0.9% x 2 L + Zosyn was given to him in the ER. He was admitted to the IMU for further care and pulmonary service
consulted for additional management/recommendations.
When I saw the patient he was in bed, complaining of shortness of breath, currently on 6 L/min via midflow nasal cannula saturating 89%. Heart rate 73 and BP 148/88. He denies chest pain, DEL REAL, abdominal pain, fevers or chills.
PMHx: Quadriplegia from spinal infarct (2014) s/p colostomy/suprapubic catheter + G-tube, history of cardiopulmonary arrest due to sepsis (08/2021), sacral decubitus stage IV ulcer s/p sacral resection with diverting colostomy, recurrent
hospitalizations for septic shock, personal history of COVID-19 (01/10/2021), chronic hypotension on midodrine, anemia of chronic disease, oropharyngeal dysphagia s/p G-tube, history of CVA (2012), neurogenic bladder s/p chronic suprapubic catheter,
DM type II, paroxysmal A-fib in the setting of sepsis (2018), history of MRSA, conjunctivitis, depression/anxiety, impaired vision, recurrent UTI/pyelonephritis, history of aspiration pneumonia, protein calorie malnutrition, ambulatory dysfunction
PSHx: Tonsillectomy, inguinal hernia repair, spinal fusion, sacral flap
Past Medical History
Past Medical History: Other (Above as per HPI)
Past Surgical History: Other (Above as per HPI)
Social History
Tobacco: Non-smoker
Alcohol: None
Drug: None
Personal:
Living: Longterm
Family History
Family History: Reviewed & Not Pertinent
Allergies / Home Medications
Allergies
Allergy/AdvReac Type Severity Reaction Status Date / Time
adhesive Allergy Rash Verified 06/26/22 17:19
latex Allergy SEE BELOW Verified 06/26/22 17:19
vancomycin Allergy trunk/back Verified 06/26/22 17:19
red rash
Home Medications
�Medication �Instructions �Recorded �Confirmed �Last Taken �Type
acetaminophen 325 mg tablet 650 mg PO Q6HPRN PRN mild 08/30/21 12/21/23 09/19/21 09:55 History
pain/temp>100F
miconazole nitrate 2 % topical 1 applic topical BID groin 09/21/21 12/21/23 Unknown History
powder (Zeasorb AF) irritation
polyethylene glycol 3350 17 gram 17 grams PO HSPRN PRN constipation 09/21/21 12/21/23 Unknown History
oral powder packet
citalopram 10 mg tablet 10 mg PO DAILY depression/anxiety 05/22/22 12/21/23 Unknown History
baclofen 20 mg tablet 40 mg PO HS Muscle Spasms 12/21/22 12/21/23 Unknown History
ipratropium 0.5 mg-albuterol 3 mg 3 ml inhalation R Q4HPRN PRN SOB, 12/21/22 12/21/23 Unknown History
(2.5 mg base)/3 mL nebulization wheezing
soln
ipratropium 0.5 mg-albuterol 3 mg 3 ml inhalation R QID 12/21/22 12/21/23 Unknown History
(2.5 mg base)/3 mL nebulization Lung/Breathing Issues
soln
loperamide 2 mg capsule 2 mg PO Q8HPRN PRN diarrhea 12/21/22 12/21/23 Unknown History
tizanidine 4 mg tablet 8 mg PO QID Muscle Spasms 12/21/22 12/21/23 Unknown History
lorazepam 0.5 mg tablet 0.5 mg PO DAILY Multiple Sclerosis 12/26/22 12/21/23 Unknown Rx
#3 tabs
azithromycin 250 mg tablet 250 mg PO HS infection 12/21/23 12/21/23 Unknown History
baclofen 20 mg tablet 20 mg PO BID muscle spasms 12/21/23 12/21/23 Unknown History
carboxymethylcellulose sodium 1 % 1 drp BOTH EYES Q6HPRN PRN dry eyes 12/21/23 12/21/23 Unknown History
eye drops
gabapentin 800 mg tablet 800 mg PO TID pain 12/21/23 12/21/23 Unknown History
ibuprofen 200 mg tablet (Advil) 600 mg PO Q6HPRN PRN high 12/21/23 12/21/23 Unknown History
temp/mild pain
ketoconazole 2 % shampoo 1 applic topical WE Skin Issues 12/21/23 12/21/23 Unknown History
lidocaine 4 % topical patch 1 patch topical DAILYPRN PRN r 12/21/23 12/21/23 Unknown History
proximal humerus
magnesium citrate 150 ml PO BIDPRN PRN if no bm aftr 12/21/23 12/21/23 Unknown History
miralax
midodrine 2.5 mg tablet 2.5 mg PO Q4HPRN PRN sbp less than 12/21/23 12/21/23 Unknown History
80
midodrine 5 mg tablet 5 mg PO TID blood pressure 12/21/23 12/21/23 Unknown History
nystatin 100,000 unit/gram topical 1 applic topical DAILY Skin Issues 12/21/23 12/21/23 Unknown History
powder
nystatin 100,000 unit/gram topical 1 applic topical DAILYPRN PRN peg 12/21/23 12/21/23 Unknown History
powder tub- removal site
Review of Systems
-
History Source: Patient
All other systems: Negative unless noted
Vitals / Labs / Diagnostic Testing
Vital Signs
Temp Pulse Resp BP Pulse Ox
98.1 F 78 15 117/88 95
12/23/23 07:25 12/23/23 09:00 12/23/23 09:00 12/23/23 09:00 12/22/23 23:36
Lab Data
12/23/23 04:32
12/23/23 04:32
Microbiology
12/21/23 16:43 Nose MRSA Screen - Final
No Methicillin Resistant Staphylococcus aureus isolated.
12/21/23 11:20 Blood/Venous Blood Culture - Preliminary
No Growth in 24 hours- Final report to follow
12/21/23 11:17 Blood/Venous Blood Culture - Preliminary
No Growth in 24 hours- Final report to follow
12/21/23 11:17 Urine Urine Culture - Final
12/21/23 11:20 Nasal Swab Influenza Types A & B (CHAY) - Final
Negative for Influenza A & B, NAAT
Negative results must be combined with clinical observations
and patient history.
Nucleic Acid Amplification test (NAAT)performed on the
[employer] platform.
Diagnostic Testing:
Physical Exam
-
HEENT: Normocephalic and Anicteric
Cardiovascular: S1/S2 and Peripheral Edema (negative)
Respiratory: Wheeze (negative), Rales (Bilaterally), Rhonchi (Bilaterally) and Accessory Resp Muscle Use (mild)
GI: Soft, Non Distended, Non Tender, Normal Bowel Sounds and Other (Colostomy in place in LLQ)
Neurology: Awake, Alert and Tremors (negative)
Skin: Warm, Dry and Other
General: Respiratory Distress (mild, worse with exertion), Chills (negative), Sweats (negative) and Other (Appears uncomfortable)
Assessment
-
Assessment: 63-year-old male with a past medical history of quadriplegia s/p spinal infarct (2014) s/p colostomy/suprapubic catheter/PEG, history of cardiopulmonary arrest due to sepsis (08/2021), stage IV sacral decubitus ulcer s/p resection with
diverting colostomy, personal history of COVID-19 (01/2021), chronic hypotension on midodrine, anemia of chronic disease, oropharyngeal dysphagia s/p G-tube, history of CVA (2012), neurogenic bladder s/p chronic suprapubic catheter, paroxysmal A-fib
in the setting of sepsis (2018), DM type II, history of MRSA, depression/anxiety and history of aspiration ammonia who presents with fevers, low oxygen and tachycardia. Patient reportedly was diagnosed with pneumonia 2 days ago and prescribed
Zithromax but symptoms persisted. Patient has been more lethargic lately and weak. In the ER he was febrile to 100.5 �F, pulse rate 104, breathing at 14 breaths/minute, BP was low at 60/43 and saturating 94% on 2 L/min nasal cannula. Labs showed
leukocytosis to 15.3, anemia to 11.7, with urinalysis positive for UTI with positive nitrites, +2 leukocyte esterase and 11�15 urine WBC with many urine bacteria. COVID antigen was negative. Blood cultures + urine cultures were collected. CXR
obtained showing chronic atelectasis of the left lower lobe with increased reticulonodular markings in the right lung. IVF with NS 0.9% x 2 L + Zosyn was given to him in the ER. He was admitted to the IMU for further care and pulmonary service
consulted for additional management/recommendations.
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
recurrent hospitalizations for septic shock, personal history of COVID-19 (01/10/2021), chronic hypotension on midodrine, anemia of chronic disease, oropharyngeal dysphagia s/p G-tube, history of CVA (2012), neurogenic bladder s/p chronic suprapubic
catheter, DM type II, paroxysmal A-fib in the setting of sepsis (2018), history of MRSA, conjunctivitis, depression/anxiety, impaired vision, recurrent UTI/pyelonephritis, history of aspiration pneumonia, protein calorie malnutrition, ambulatory
dysfunction
Impression:
#Sepsis without shock due to UTI and pneumonia (aspiration suspected)
#Complicated UTI with history of suprapubic catheter
#Right sided PNA likely due to aspiration
#Acute�subacute impacted fracture of right humeral neck
#Chronic anemia (baseline Hb: 11�12.5g/dL)
#Hyperglycemia
#Quadriplegia s/p spinal infarct (2014) s/p colostomy/suprapubic catheter/PEG
#History of cardiopulmonary arrest due to sepsis (August 2021)
#Stage IV sacral decubitus ulcer s/p sacral resection with diverting colostomy
#Recurrent UTI/pyelonephritis
#History of aspiration pneumonia
#Chronic hypotension on midodrine
Plan:
- Continue with antibiotics - currently on Zosyn (started AM of 12/21/2023)
- Would treat for 7 days assuming he continues to clinically improve and remains afebrile for 48 hours prior to stopping antibiotics
- Follow-up infectious workup including blood cultures + urine cultures (both NGTD)
- Check sputum Cx
- Check legionella and S pneumonia urine antigens
- Continue DuoNebs QID (home med) with prn doses in between
- Given worsening hypoxia, systemic steroids were started. Currently on Decadron 4 mg IV q8hr --> wean as tolerated
- Maintain SpO2 >90-94% with supplemental O2 and wean as tolerated
- Keep MAP>65
- Continue midodrine
- Incentive spirometer encouraged
- Aspiration precautions and keep HOB >30-45�
- Consult orthopedic surgery for right humeral neck fracture
- Replete electrolytes with K>4, Mg>2
- Maintain euglycemia with goal BG >100 and <180
- DVT ppx: HSQ
Pulmonary service will continue to follow along.
Data:
CXR 12/21/2023:
Chronic atelectasis of the left lower lobe.
Increased reticulonodular markings throughout the right lung, patchy distribution.
Total time spent today was 75 minutes for this encounter. Time includes reviewing laboratory test/imaging results, reviewing pertinent medical records, obtaining and reviewing medical history, performing an appropriate exam, ordering medications,
tests and procedures. Time also includes documentation of this encounter, coordinating patient care and communicating with other healthcare professionals. Total time does not include separately billed tests performed on this date of service.
--- NOTE | 2023-12-23 11:50 | W.PN.URO.CBU ---
Today's Communication / Plan
-
monitir output urine
Assessment / Plan
-
urosepsi inpt with sp tube pt stabilizing with iv abs josy change s tube thos am to 20 fr silastic [ DONE]
Diagnosis
-
Date of Service: December 23, 2023
-
Patient Diagnosis:ngb wit urosepsi has sp tube
Post Op Day:
Subjective
-
feeling better
Objective
-
Vital Signs
Temp Pulse Resp BP Pulse Ox
98.1 F 52 15 145/84 94
12/23/23 07:25 12/23/23 11:00 12/23/23 11:00 12/23/23 10:00 12/23/23 11:25
Intake and Output
12/22/23 12/23/23 12/24/23
06:59 06:59 06:59
Intake Total 2220 / 2220 2760 / 2760
Output Total 1100 / 1100 2850 / 2850 450 / 450
Balance 1120 / 1120 -90 / -90 -450 / -450
Intake:
Oral fluids 720 / 720 540 / 540
IV fluids (Total) 1200 / 1200 1920 / 1920
IV piggybacks 300 / 300 300 / 300
Output:
Liquid stool amount 350 / 350 200 / 200
Colostomy 350 / 350 200 / 200
Urine, Moctezuma 300 / 300
Urine, Voided 300 / 300
Suprapubic output 800 / 800 2200 / 2200 250 / 250
Other:
Number of unmeasured liquid
stools
Colostomy 1
Laboratory Results
12/23/23 04:32
12/23/23 04:32
Review of Systems
-
Constitutional: Night Sweats and Chills
: Difficulty Voiding
Physical Exam
-
General - well developed, well nourished, no acute distress
Chest - clear bilaterally
Abdomen - soft, non-tender, positive bowel sounds, no CVAT, no incisional pain or distention
Genitalia - normal
Rectal - normal
Skin - warm & dry with no rash
Neuro - AOx3, no motor deficits
Extremities - no clubbing, no cyanosis, no edema
Incision - clean, dry
Dressing - clean, dry, intact
Care Review
Data Reviewed
Discussed with: Hospitalist and Nursing
CT Scan: Image Pers Reviewed
--- NOTE | 2023-12-23 12:14 | W.PN.HOSP.TC ---
Today's Communication/Plan
-
continue IV Abx for PNA
monitor O2 settings
repeat ST eval
VSE Monday
Assessment / Plan
Assessment / Plan
Assessment:
Acute on chronic hypoxic respiratory failure
- on 15L, wean as able, currently 6L (baseline 4L)
Severe Sepsis (fever, leucocytosis, tachycardia) with hypotension on top of Chronic hypotension secondary to autonomic dysfunction/polypharmacy
Aspiration PNA
- s/p IVF per sepsis protocol
- continue chronic midodrine
- continue empiric Zosyn, day 2; note was on Azithromycin at [facility] for pneumonia
- repeat CXR 12/21 10PM: RAPID INTERVAL INCREASE in LARGE AIRSPACE CONSOLIDATIONS in the right upper lobe, right middle lobe, right lower lobe, and left lower lobe since 12/21/2023. Diagnostic possibilities are (1) acute aspiration pneumonitis or (2)
severe pneumonia.
- follow cultures
- prn nebs
CAUTI - POA
- continue Abx as above
- s/p SPC exchange 12/22
Anemia of chronic disease
- hemoglobin stable at 12.1
- No active bleeding
- Continue to monitor
Chronic urinary retention
Muscle Spasms due to Quadriplegia
- continue Tizanidine
- continue gabapentin
- continue baclofen
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
Hx of Bowel resection
- Colostomy care
- Dysphagia diet
- Dietary/Speech evals
Anxiety/Depression
- continue Lorazepam
- continue Celexa
Chronic wounds - all present on arrival
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
- Mild discolored red rash like skin (eczema appearing too) on sacral/buttocks/ischium.
- Small dry scabs Le's/ankle/foot/R thigh suspect r/t his poor skin condition (eczema?), fragile skin.
- L posterior hip dull slow to corbin red skin (stage 1 pressure injury).
- Bilateral heels with discolored dull red scars.
- Abdominal MASD r/t drainage from an old feeding tube removal site that never fully closed.
- follow wound care recs
Midodrine induced hypertension
- prn Hydralazine with parameters placed
�
DVT prophylaxis: SC heparin
Code: DNR/DNI
Anticipated Discharge: > 48 hours
Subjective/Interval History
-
Date of Service: December 23, 2023
overnight events reviewed, per staff, family noted choking spells, and patient more lethargic and respiratory distress last evening requiring 15L NC
STeroids added in addition to ongoing IV Abx; CXR showed worsening PNA concerning for aspiration
Patient this AM, feels less SOB, now on 6L NC
Has cough, congestion, no chest pain, no fevers
Objective Data
-
Labs:
Laboratory Results
12/23/23
04:32
WBC 13.1 H
Hgb 12.1 L
Hct 36.3 L
Plt Count 231
Sodium 141
Potassium 4.2
Chloride 107
Carbon Dioxide 21 L
BUN 14
Creatinine 0.3 L
Glucose 184 H
Calcium 9.0
Vital Signs:
Vital Signs
Temp Pulse Resp BP Pulse Ox
98.4 F 52 15 145/84 94
12/23/23 11:25 12/23/23 11:00 12/23/23 11:00 12/23/23 10:00 12/23/23 11:25
I&O
12/22/23 12/23/23 12/24/23
06:59 06:59 06:59
Intake Total 2220 / 2220 2760 / 2760
Output Total 1100 / 1100 2850 / 2850 450 / 450
Balance 1120 / 1120 -90 / -90 -450 / -450
Physical Exam
-
General: No Apparent Distress
HEENT: Normocephalic and Atraumatic
Respiratory: Wheezes and Rhonchi
Cardiac: Regular Rhythm and S1/S2
GI: Soft and Ostomy
Neuro: AO x 3
Psych: Calm
Data Reviewed
-
Total Time Spent with Patient (in minutes): 45
Labs: Labs Reviewed by me
[2023-12-23] MEDS: ZANAFLEX PO (12:23)
--- NOTE | 2023-12-23 13:35 | PTOTSP ---
ST Follow up/reassess
Mild-moderate oral dysphagia; missing dentition, no partials at bedside. Suspected pharyngeal; no overt s/sx @ the bedside however remains at risk for aspiration
Pt received asleep required max multimodal stim to awake but was able to maintain alertness t/o reassessment. Per RN and physician reported choking episodes with c/f aspiration with worsening CXR.
HOB raised full upright prior to PO trials of puree, minced/moist solids, soft/bite-size solids and thin liquids. Reports he usually wears upper/lower partials but they are not with him currently. He does feel like his chewing is affected d/t lack
of dentition.
Demo mildly prolonged yet effective mastication, benefits from added moisture and min oral residuals which cleared best with liquid chaser. Thin liquids by straw serial sips swallow appears prompt. Vocal quality remained clear t/o trials and was
assessed after each trial. Although no overt s/sx of aspiration observed during this session pt remains at risk for aspiration due to dependent feeder status, wax/wane mental and respiratory status.
Recommendations
1. May conservatively restart PO diet of minced/moist (L5) and thin liquids. Low threshold to d/c diet and reinstate NPO if continued concerns
2. Aspiration precautions and feeding assist
3. Small bites, alternate liquids/solids and slow rate of meal
5. Meds oral per pt preference and RN discretion
6. [employer] following; VSE when able
[2023-12-23] MEDS: APRESOLINE 5 MG IV (13:56)
[2023-12-23] MEDS: ProAmatine PO ×2 (16:33→21:40)
--- NOTE | 2023-12-23 17:05 | PTCARENOTE ---
Drowsy after AM med regimen, held 1300 Zanaflex. PO diet ordered after seen by speech- daughter fed him and again pox dropped 87% on 4L- audible Rhonchi noted- increased to 6L suctioned- blew nose as well and returned to 94%. Educated daughter on
chin tuck with verbal understanding. Staff to feed him dinner. Currently he is Ox3 forgetful - makes some odd interesting conversation at times. No resp distress noted. SR 80s on tele. HTN earlier and PRN IV Hydralazine ordered and given for
parameters. Turning q 2 multiple Mepilex foams intact for wounds/ prevention.
[2023-12-23] MEDS: DUONEB 3 ML INH (19:51)
[2023-12-23] MEDS: LIORESAL 40 MG PO (20:29)
[2023-12-24] VITALS (16 sets, daily range): BP systolic 97–181; BP diastolic 61–97
[2023-12-24] MEDS: APRESOLINE 5 MG IV (02:05)
[2023-12-24 04:25] LABS: Hemoglobin 10.8 g/dL (13.0-18.0); Mean Corp Hgb Conc. 32.7 g/dL (33.0-37.0); Mean Corpuscular Hgb 29.3 pg (27.0-31.0); Mean Corpuscular Volume 89.7 fL (80.0-94.0); Mean Platelet Volume 9.3 fL (7.4-10.4); Platelet Count 237 10^3/uL (130-400); Red Blood Cell Count 3.68 10^6/uL (4.70-6.10); Red Cell Dist. Width 14.8 % (11.5-14.5); White Blood Cell Count 6.3 10^3/uL (4.8-10.8)
[2023-12-24 04:52] LABS: Blood Urea Nitrogen 18 mg/dl (9-20); Calcium 9.1 mg/dl (8.4-10.2); Carbon Dioxide 25 mmol/L (22-30); Chloride 108 mmol/L (98-107); Estimated Creatinine Clearance 99 ml/min; Glucose 199 mg/dl (70-99); Potassium 3.6 mmol/L (3.5-5.1); Sodium 145 mmol/L (135-145); eGFR > 60.00
[2023-12-24] MEDS: ZOSYN 100 IV ×3 (05:15→17:56)
--- NOTE | 2023-12-24 06:45 | PTCARENOTE ---
Patient with increased anxiety overnight. on call provider made aware and ordered 1x dose po ativan. Remains on 10 liters midflow- complains about stuffy nose- drilling and production superintendent provider made aware and ordered nasal spray.
[2023-12-24] MEDS: DUONEB 3 ML INH ×4 (07:43→19:47)
[2023-12-24] MEDS: ZANAFLEX 8 MG PO ×4 (08:06→21:54)
[2023-12-24] MEDS: NEURONTIN 800 MG PO ×3 (08:07→21:53)
[2023-12-24] MEDS: CELEXA 10 MG PO (08:07)
[2023-12-24] MEDS: LIORESAL 20 MG PO ×2 (08:07→17:56)
[2023-12-24] MEDS: HEPARIN 5000 UNITS SC (08:07)
[2023-12-24] MEDS: DECADRON 4 MG IV ×2 (08:07→15:46)
[2023-12-24] MEDS: ProAmatine 5 MG PO (08:08)
[2023-12-24] MEDS: DESENEX/MITRAZOL/ZEASORB 1 APPLIC TOPICAL ×2 (08:10→21:52)
[2023-12-24] MEDS: OCEAN, SALINE MIST 1 SPRAYS NASAL ×4 (08:10→20:33)
--- NOTE | 2023-12-24 09:16 | CON.ORTHO ---
Consultation
-
Date/Time Consultation Requested: 12/24/2023; time unknown
Date/Time Consultation Performed: 12/23/2023; 0915
Requesting Provider: Dr. Brigitte Anthony
Performing Provider: Diane Garcias PA-C for Dr. Keo Prasad
Reason for Consultation: Right proximal humerus fracture
Consultation - Orthopedics
History
Mr. Burkett is a 63-year-old male with history of CVA with quadriplegic who presented to the ED due to hypotension on midodrine and new onset pneumonia. He was found to have a fracture of his right proximal humerus fracture on his chest XR. He
reports that his elbow hit the doorway while he was going through in his wheelchair several months ago. He denies any significant pain immediately following the incident, but has noticed intermittent discomfort in the shoulder during transfers since
that time. He reports that x-rays were not taken of the shoulder following the incident. He denies any other injuries since that event. He reports he is comfortable at present and denies any pain in the shoulder. He reports only a small amount of
movement of his shoulders at baseline. He denies ability to move his arms past his shoulders, and reports lack of sensation distally in both upper extremities. He is currently living in a longterm.
Allergies / Home Medications
Allergy/AdvReac Type Severity Reaction Status Date / Time
adhesive Allergy Rash Verified 06/26/22 17:19
latex Allergy SEE BELOW Verified 06/26/22 17:19
vancomycin Allergy trunk/back Verified 06/26/22 17:19
red rash
�Medication �Instructions �Recorded
acetaminophen 325 mg tablet 650 mg PO Q6HPRN PRN mild 08/30/21
pain/temp>100F
miconazole nitrate 2 % topical 1 applic topical BID groin 09/21/21
powder (Zeasorb AF) irritation
polyethylene glycol 3350 17 gram 17 grams PO HSPRN PRN constipation 09/21/21
oral powder packet
citalopram 10 mg tablet 10 mg PO DAILY depression/anxiety 05/22/22
baclofen 20 mg tablet 40 mg PO HS Muscle Spasms 12/21/22
ipratropium 0.5 mg-albuterol 3 mg 3 ml inhalation R Q4HPRN PRN SOB, 12/21/22
(2.5 mg base)/3 mL nebulization wheezing
soln
ipratropium 0.5 mg-albuterol 3 mg 3 ml inhalation R QID 12/21/22
(2.5 mg base)/3 mL nebulization Lung/Breathing Issues
soln
loperamide 2 mg capsule 2 mg PO Q8HPRN PRN diarrhea 12/21/22
tizanidine 4 mg tablet 8 mg PO QID Muscle Spasms 12/21/22
lorazepam 0.5 mg tablet 0.5 mg PO DAILY Multiple Sclerosis 12/26/22
#3 tabs
azithromycin 250 mg tablet 250 mg PO HS infection 12/21/23
baclofen 20 mg tablet 20 mg PO BID muscle spasms 12/21/23
carboxymethylcellulose sodium 1 % 1 drp BOTH EYES Q6HPRN PRN dry eyes 12/21/23
eye drops
gabapentin 800 mg tablet 800 mg PO TID pain 12/21/23
ibuprofen 200 mg tablet (Advil) 600 mg PO Q6HPRN PRN high 12/21/23
temp/mild pain
ketoconazole 2 % shampoo 1 applic topical WE Skin Issues 12/21/23
lidocaine 4 % topical patch 1 patch topical DAILYPRN PRN r 12/21/23
proximal humerus
magnesium citrate 150 ml PO BIDPRN PRN if no bm aftr 12/21/23
miralax
midodrine 2.5 mg tablet 2.5 mg PO Q4HPRN PRN sbp less than 12/21/23
80
midodrine 5 mg tablet 5 mg PO TID blood pressure 12/21/23
nystatin 100,000 unit/gram topical 1 applic topical DAILY Skin Issues 12/21/23
powder
nystatin 100,000 unit/gram topical 1 applic topical DAILYPRN PRN peg 12/21/23
powder tub- removal site
Vital Signs / Lab Results
Temp Pulse Resp BP Pulse Ox
97.7 F 82 15 103/61 90
12/24/23 07:32 12/24/23 08:06 12/24/23 08:06 12/24/23 08:08 12/24/23 08:44
12/24/23 04:19
12/24/23 04:19
Chest XR 12/22/2023 IMPRESSION:
1. RAPID INTERVAL INCREASE in LARGE AIRSPACE CONSOLIDATIONS in the right upper lobe, right middle lobe, right lower lobe, and left lower lobe since 12/21/2023. Diagnostic possibilities are (1) acute aspiration pneumonitis or (2) severe pneumonia.
2. Small bilateral pleural effusions.
3. Acute to subacute impacted fracture of the right humeral neck.
Directed exam of the right upper extremity reveals mild edema about the right shoulder compared to contralateral side. No erythema, ecchymosis or lesions. Bilateral elbows and wrists held in flexed position. No tenderness to palpation about the
shoulder. PROM of shoulder deferred secondary to known fracture. Sensation to light touch diminished, consistent with baseline quadriplegia.
Assessment / Plan
Right proximal humerus fracture
--Anahi was incidentally found to have a fracture of his right proximal humerus on CXR. From what I can see, this is nondisplaced and impacted, and I expect this will be able to be managed without surgery. I did place an order for dedicated
shoulder films. He has limited ability for ROM at baseline, but we discussed taking it easy and limiting ROM to allow for healing of the fracture. Could consider sling to RUE for comfort. Pain medication prn per primary. Orthopedics will continue to
follow along for now. Please reach out with any additional orthopedic questions or concerns.
--- NOTE | 2023-12-24 09:18 | W.PN.PUL3 ---
Today's Communication / Plan
-
Antibiotics
Titrate down O2 to keep SpO2 >90-94%
Check sputum culture if patient can produce a decent sample
Follow-up blood cultures (12/20)
Orthopedic surgery consulted - recs appreciated
Urology consulted and changed suprapubic catheter today
Assessment
-
Assessment: 63-year-old male with a past medical history of quadriplegia s/p spinal infarct (2014) s/p colostomy/suprapubic catheter/PEG, history of cardiopulmonary arrest due to sepsis (08/2021), stage IV sacral decubitus ulcer s/p resection with
diverting colostomy, personal history of COVID-19 (01/2021), chronic hypotension on midodrine, anemia of chronic disease, oropharyngeal dysphagia s/p G-tube, history of CVA (2012), neurogenic bladder s/p chronic suprapubic catheter, paroxysmal A-fib
in the setting of sepsis (2018), DM type II, history of MRSA, depression/anxiety and history of aspiration ammonia who presents with fevers, low oxygen and tachycardia. Patient reportedly was diagnosed with pneumonia 2 days ago and prescribed
Zithromax but symptoms persisted. Patient has been more lethargic lately and weak. In the ER he was febrile to 100.5 �F, pulse rate 104, breathing at 14 breaths/minute, BP was low at 60/43 and saturating 94% on 2 L/min nasal cannula. Labs showed
leukocytosis to 15.3, anemia to 11.7, with urinalysis positive for UTI with positive nitrites, +2 leukocyte esterase and 11�15 urine WBC with many urine bacteria. COVID antigen was negative. Blood cultures + urine cultures were collected. CXR
obtained showing chronic atelectasis of the left lower lobe with increased reticulonodular markings in the right lung. IVF with NS 0.9% x 2 L + Zosyn was given to him in the ER. He was admitted to the IMU for further care and pulmonary service
consulted for additional management/recommendations.
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
recurrent hospitalizations for septic shock, personal history of COVID-19 (01/10/2021), chronic hypotension on midodrine, anemia of chronic disease, oropharyngeal dysphagia s/p G-tube, history of CVA (2012), neurogenic bladder s/p chronic suprapubic
catheter, DM type II, paroxysmal A-fib in the setting of sepsis (2018), history of MRSA, conjunctivitis, depression/anxiety, impaired vision, recurrent UTI/pyelonephritis, history of aspiration pneumonia, protein calorie malnutrition, ambulatory
dysfunction
Impression:
#Sepsis without shock due to UTI and pneumonia (aspiration suspected)
#Complicated UTI with history of suprapubic catheter
#Right sided PNA likely due to aspiration
#New onset A-fib with a history of paroxysmal A-fib in the setting of sepsis (2018)
#Acute�subacute impacted fracture of right humeral neck
#Chronic anemia (baseline Hb: 11�12.5g/dL)
#Hyperglycemia
#Quadriplegia s/p spinal infarct (2014) s/p colostomy/suprapubic catheter/PEG
#History of cardiopulmonary arrest due to sepsis (August 2021)
#Stage IV sacral decubitus ulcer s/p sacral resection with diverting colostomy
#Recurrent UTI/pyelonephritis
#History of aspiration pneumonia
#Chronic hypotension on midodrine
Plan:
- Continue with antibiotics - currently on Zosyn (started AM of 12/21/2023)
- Would treat for 7 days assuming he continues to clinically improve and remains afebrile for 48 hours prior to stopping antibiotics
- Follow-up infectious workup including blood cultures + urine cultures (both NGTD)
- Check sputum Cx (if patient can produce a decent sample)
- Legionella and S pneumonia urine antigens both negative
- Continue DuoNebs QID (home med) with prn doses in between
- Given worsening hypoxia, systemic steroids were started. Currently on Decadron 4 mg IV q8hr --> wean as tolerated --> can wean down to 4mg IV q12hr tomorrow (12/24)
- Maintain SpO2 >90-94% with supplemental O2 and wean as tolerated
- Keep MAP>65
- Continue midodrine
- Incentive spirometer encouraged
- Aspiration precautions and keep HOB >30-45�
-Patient went into A-fib since yesterday
- When I saw the patient he was in NSR
- Monitor for A-fib recurrence, replete K>4, Mg>2
- If goes back into A-fib, rate control with goal HR<110
- Eliquis started by primary team
- Consult cardiology
- Orthopedic surgery consulted for right humeral neck fracture; recs appreciated
- Pain control
- Urology consulted and they changed his suprapubic catheter today (12/23)
- Replete electrolytes with K>4, Mg>2
- Maintain euglycemia with goal BG >100 and <180
- DVT ppx: Eliquis
Pulmonary service will continue to follow along.
Data:
CXR 12/21/2023:
Chronic atelectasis of the left lower lobe.
Increased reticulonodular markings throughout the right lung, patchy distribution.
Total time spent today was 50 minutes for this encounter. Time includes reviewing laboratory test/imaging results, reviewing pertinent medical records, obtaining and reviewing medical history, performing an appropriate exam, ordering medications,
tests and procedures. Time also includes documentation of this encounter, coordinating patient care and communicating with other healthcare professionals. Total time does not include separately billed tests performed on this date of service.
Subjective Data
-
Date of Service:
Date of Service: December 24, 2023
Chief Complaint: Pulmonary Follow Up
Subjective:
Patient seen and evaluated today at bedside. Patient's sister, Ashleigh at bedside. All questions were answered. He is currently on 6 L/min via mid flow nasal cannula saturating 94%, heart rate 77 and BP 161/96. Patient says he feels similar to
yesterday, with cough and shortness of breath. He denies DEL REAL, chest pain, abdominal pain, fevers or chills.
Review of Systems
General: Other (Negative unless mentioned above)
Objective Data
Data Reviewed
Vital Signs / I&O / Oxygen:
Vital Signs
Temp Pulse Resp BP Pulse Ox
97.7 F 82 15 103/61 90
12/24/23 07:32 12/24/23 08:06 12/24/23 08:06 12/24/23 08:08 12/24/23 08:44
Intake and Output
12/23/23 12/24/23 12/25/23
06:59 06:59 06:59
Intake Total 2760 / 2760 1575 / 1575
Output Total 2850 / 2850 1575 / 1575
Balance -90 / -90 0 / 0
SaO2 90
Nasal Cannula flow liters per 8
minute
Physical Exam
General: Respiratory Distress (negative), Sweats (negative) and Other (Appears uncomfortable although not in acute distress)
HEENT: Normocephalic and Anicteric
Cardiovascular: S1-S2 and Peripheral Edema (negative)
Respiratory: Wheeze (negative), Crackles (Bilateral throughout respiratory cycle), Rhonchi (Bilateral throughout respiratory cycle) and Non-Labored Respirations
GI: Soft, Non Distended, Non Tender, Normal Bowel Sounds and Other (LLQ colostomy)
Neurology: Awake, Alert and Tremors (negative)
Skin: Warm, Dry and Jaundice (negative)
Labs/Micro/Reports
Lab Data
12/24/23 04:19
12/24/23 04:19
Microbiology
12/23/23 19:54 Urine Legionella Urinary Antigen - Final
Negative for Legionella pneumophila Serogroup 1 antigen.
A negative result does not rule out the possiblity of
Legionella infection due to other serogroups or species of
Legionella. Clinical correlation is recommended.
12/23/23 19:54 Urine Streptococcus pneumoniae Antigen (M - Final
Negative for Streptococcus pneumoniae antigen.
A negative result does not exclude infection with
Streptococcus pneumoniae. Clinical correlation is
recommended.
12/21/23 11:17 Blood/Venous Blood Culture - Preliminary
No Growth in 48 hours- Final report to follow
12/21/23 11:20 Blood/Venous Blood Culture - Preliminary
No Growth in 48 hours- Final report to follow
12/21/23 16:43 Nose MRSA Screen - Final
No Methicillin Resistant Staphylococcus aureus isolated.
12/21/23 11:17 Urine Urine Culture - Final
12/21/23 11:20 Nasal Swab Influenza Types A & B (CHAY) - Final
Negative for Influenza A & B, NAAT
Negative results must be combined with clinical observations
and patient history.
Nucleic Acid Amplification test (NAAT)performed on the
[employer] platform.
--- NOTE | 2023-12-24 09:48 | W.PN.HOSP.TC ---
Today's Communication/Plan
-
continue IV abx, IV steroids
wean O2
ST evals, VSE Monday
Ortho eval, shoulder xray for CXR showing humerus fracture
Assessment / Plan
Assessment / Plan
Assessment:
Acute on chronic hypoxic respiratory failure
- on 15L, wean as able, currently 10L
- confirmed with , initially records indicated 4L baseline but she states NO baseline O2 needs.
Severe Sepsis (fever, leucocytosis, tachycardia) with hypotension on top of Chronic hypotension secondary to autonomic dysfunction/polypharmacy
Aspiration PNA
- s/p IVF per sepsis protocol
- continue chronic midodrine with parameters
- continue empiric Zosyn, day 3; note was on Azithromycin at [facility] for pneumonia
- repeat CXR 12/21 10PM: RAPID INTERVAL INCREASE in LARGE AIRSPACE CONSOLIDATIONS in the right upper lobe, right middle lobe, right lower lobe, and left lower lobe since 12/21/2023. Diagnostic possibilities are (1) acute aspiration pneumonitis or (2)
severe pneumonia.
- continue IV steroids for wheezing
- follow cultures
- prn nebs
- pulmonary consulted
CAUTI - POA
- continue Abx as above
- s/p SPC exchange 12/22; appreciate Urology
Acute to subacute impacted fracture of the right humeral neck
- lives in facility, per , he suffered a shoulder fracture by hitting his arm against a metal bar.
- check Shoulder X-ray
- Orthopedics consulted
Anemia of chronic disease
- hemoglobin stable at 12.1
- No active bleeding
- Continue to monitor
Chronic urinary retention
Muscle Spasms due to Quadriplegia
- continue Tizanidine
- continue gabapentin
- continue baclofen
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
Hx of Bowel resection
- Colostomy care
- Dysphagia diet per ; VSE planned Monday
- Dietary and speech following
Anxiety/Depression
- continue Lorazepam; change to PM dosing (to avoid daytime lethargy)
- continue Celexa
Chronic wounds - all present on arrival
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
- Mild discolored red rash like skin (eczema appearing too) on sacral/buttocks/ischium.
- Small dry scabs Le's/ankle/foot/R thigh suspect r/t his poor skin condition (eczema?), fragile skin.
- L posterior hip dull slow to corbin red skin (stage 1 pressure injury).
- Bilateral heels with discolored dull red scars.
- Abdominal MASD r/t drainage from an old feeding tube removal site that never fully closed.
- follow wound care recs
Midodrine induced hypertension
- prn Hydralazine with parameters placed
�
DVT prophylaxis: SC heparin
Code: DNR/DNI
Anticipated Discharge: > 48 hours
Subjective/Interval History
-
Date of Service: December 24, 2023
further episode of 'choking' when being fed by daughter
Objective Data
-
Labs:
Laboratory Results
12/24/23
04:19
WBC 6.3
Hgb 10.8 L
Hct 33.0 L
Plt Count 237
Sodium 145
Potassium 3.6
Chloride 108 H
Carbon Dioxide 25
BUN 18
Creatinine 0.3 L
Glucose 199 H
Calcium 9.1
Vital Signs:
Vital Signs
Temp Pulse Resp BP Pulse Ox
97.7 F 82 15 103/61 90
12/24/23 07:32 12/24/23 08:06 12/24/23 08:06 12/24/23 08:08 12/24/23 08:44
I&O
12/23/23 12/24/23 12/25/23
06:59 06:59 06:59
Intake Total 2760 / 2760 1575 / 1575
Output Total 2850 / 2850 1575 / 1575
Balance -90 / -90 0 / 0
Physical Exam
-
General: No Apparent Distress
HEENT: Normocephalic and Atraumatic
Respiratory: Wheezes and Rhonchi
Cardiac: Regular Rhythm and S1/S2
Musculoskeletal: No Edema
Neuro: AO x 3
Psych: Calm
Data Reviewed
-
Total Time Spent with Patient (in minutes): 46
Labs: Labs Reviewed by me
[2023-12-24] MEDS: ATIVAN PO (11:18)
--- NOTE | 2023-12-24 12:07 | W.PN.URO.CBU ---
Today's Communication / Plan
-
NO NEW INTEVENTIONS
Assessment / Plan
-
urosepsi inpt with sp tube pt stabilizing with iv abs josy change s tube thos am to 20 fr silastic [ DONE]
Diagnosis
-
Date of Service: December 24, 2023
-
Patient Diagnosis:
Post Op Day:
Patient Diagnosis:ngb wit urosepsi has sp tube
Post Op Day:
Subjective
-
NO NEW SXS
Objective
-
Vital Signs
Temp Pulse Resp BP Pulse Ox
97.0 F 71 23 161/96 95
12/24/23 11:37 12/24/23 11:13 12/24/23 11:13 12/24/23 10:00 12/24/23 11:13
Intake and Output
12/23/23 12/24/23 12/25/23
06:59 06:59 06:59
Intake Total 2760 / 2760 1575 / 1575
Output Total 2850 / 2850 1575 / 1575
Balance -90 / -90 0 / 0
Intake:
Oral fluids 540 / 540 775 / 775
IV fluids (Total) 1920 / 1920 400 / 400
IV piggybacks 300 / 300 400 / 400
Output:
Liquid stool amount 350 / 350 350 / 350
Colostomy 350 / 350 350 / 350
Urine, [place] 975 / 975
Urine, Voided 300 / 300
Suprapubic output 2200 / 2200 250 / 250
Laboratory Results
12/24/23 04:19
12/24/23 04:19
Review of Systems
-
: Difficulty Voiding
Physical Exam
-
General - well developed, well nourished, no acute distress
Chest - clear bilaterally
Abdomen - soft, non-tender, positive bowel sounds, no CVAT, no incisional pain or distention
Genitalia - normal
Rectal - normal
Skin - warm & dry with no rash
Neuro - AOx3, no motor deficits
Extremities - no clubbing, no cyanosis, no edema
Incision - clean, dry
Dressing - clean, dry, intact
Care Review
Data Reviewed
Discussed with: Nursing
[2023-12-24] MEDS: CARDIZEM 5 MG IV (15:44)
[2023-12-24] MEDS: CARDIZEM 30 MG PO ×3 (15:46→21:53)
[2023-12-24] MEDS: ProAmatine PO ×2 (15:46→21:55)
--- NOTE | 2023-12-24 16:06 | STATUS ---
SITUATION:
Tele alarming AF rates 140s.
BACKGROUND:'
Quadraplegic with current aspiration pneumonia
ASSESSMENT:
Just completed neb tx- tele shows AF 140s-150s, BP 130/93- asymptomatic. EKG completed and Dr. Anthony made aware.
RECOMMENDATION:
IV Cardizem 5mg and po dose given. Rates are currently 100s-130s.
--- NOTE | 2023-12-24 17:28 | PTCARENOTE ---
AAO x3 today, conversive. Tele SR this am, AF/RVR this pm- see SBAR note. Tolerated meals today- sister was here to feed lunch- educated on asp. precautions. PRN Chicot spray and Flutter/IS devices used x3 this shift- per pt definitely helping with
nasal congestion and chest congestion however Still has audible Rhonchi- weaned to 4L NC maintaining sao2 94%. Colostomy and suprapubic tube with adequate outputs. Multiple Mepilex foams intact - changed out the abdominal old peg site for
drainage.
[2023-12-24] MEDS: ELIQUIS 5 MG PO (20:32)
[2023-12-24] MEDS: ATIVAN 0.5 MG PO (20:33)
[2023-12-24] MEDS: LIORESAL 40 MG PO (21:55)
[2023-12-25] VITALS (13 sets, daily range): BP systolic 108–163; BP diastolic 66–109; BMI 23.7
[2023-12-25] MEDS: DECADRON 4 MG IV ×3 (00:47→21:12)
[2023-12-25] MEDS: ZOSYN 100 IV ×5 (00:48→23:40)
--- NOTE | 2023-12-25 01:02 | PTCARENOTE ---
Assumed care for pt overnight, received report from STELLA. Blossom3, conversive, and pleasant. A-fib on tele, HR up to 130's after neb treatment resolved on its own, pt asymptomatic. Given PRN ocean spray in both nostrils. Pt has audible rhonchi and
diminished lung sounds. Pt is on 4L NC and maintaining O2 of 98%. Adequate output from suprapubic tube and colostomy, stoma is budded and pink. Sacrum assessed, pink, dry and intact and blanchable. Mepilex foams intact, pt agreeable to Q2 turning.
Pt educated and demonstrated use of incentive spirometer. Daughter at the bedside and educated on aspiration precautions. Pt has the green air boots on with heels elevated. Pt has call gastelum next to head to ring when necessary.
--- NOTE | 2023-12-25 03:35 | PTCARENOTE ---
Noted regular rhythm on tele. Obtained EKG per protocol. Patient converted to normal sinus and is now sinus bradycardia.
[2023-12-25 05:41] LABS: Hematocrit 34.3 % (39.0-52.0); Hemoglobin 11.1 g/dL (13.0-18.0); Mean Corp Hgb Conc. 32.4 g/dL (33.0-37.0); Mean Corpuscular Hgb 27.8 pg (27.0-31.0); Mean Platelet Volume 9.1 fL (7.4-10.4); Platelet Count 281 10^3/uL (130-400); Red Blood Cell Count 3.99 10^6/uL (4.70-6.10); White Blood Cell Count 5.4 10^3/uL (4.8-10.8)
[2023-12-25 06:05] LABS: Blood Urea Nitrogen 22 mg/dl (9-20); Calcium 9.2 mg/dl (8.4-10.2); Carbon Dioxide 27 mmol/L (22-30); Chloride 107 mmol/L (98-107); Estimated Creatinine Clearance 107 ml/min; Glucose 221 mg/dl (70-99); Potassium 3.8 mmol/L (3.5-5.1); Sodium 144 mmol/L (135-145); eGFR > 60.00
[2023-12-25] MEDS: DUONEB 3 ML INH ×4 (07:07→20:34)
--- NOTE | 2023-12-25 08:18 | W.PN.HOSP.TC ---
Addendum entered and electronically signed by Angela Villar MD 12/25/23 13:31:
updated on the phone.
Informed her about the right humerus x-ray finding, which noted 'blastic lesion'.
is preferring no bone scan for the time being, she is very realistic and stated that patient's current condition would unlikely be able to tolerate any cancer treatment.
is okay with checking PSA, although she is not sure if they would want any treatment plan if PSA suggestive of prostate cancer.
Original Note:
Today's Communication/Plan
-
see A/P
Assessment / Plan
Assessment / Plan
A/P:
# Acute on chronic hypoxic respiratory failure
confirmed with , initially records indicated 4L baseline but she states NO baseline O2 needs.
O2 support at 15L -> 4L, wean as able
# Severe Sepsis (fever, leucocytosis, tachycardia) with hypotension in setting of Chronic hypotension secondary to autonomic dysfunction/polypharmacy
# Aspiration PNA
s/p IVF per sepsis protocol
continue chronic midodrine with parameters
continue empiric Zosyn; note was on Azithromycin at [facility] for pneumonia
repeat CXR 12/21 10PM: RAPID INTERVAL INCREASE in LARGE AIRSPACE CONSOLIDATIONS in the right upper lobe, right middle lobe, right lower lobe, and left lower lobe since 12/21/2023. Diagnostic possibilities are (1) acute aspiration pneumonitis or (2)
severe pneumonia.
weaning IV steroids (started for wheezing),
Cultures negative
s/p VSE 12/24, recc to cont mince moist diet
prn nebs
pulmonary consulted
# CAUTI with suprapubic catheter POA
continue Abx as above
s/p SPC exchange 12/22; appreciate Urology
# Acute to subacute impacted fracture of the right humeral neck
lives in facility, per , he suffered a shoulder fracture by hitting his arm against a metal bar.
Shoulder X-ray noted healing subacute right humeral neck fracture but possible blastic osseous metastatic disease.
Check bone scan
Check PSA
Orthopedics consulted
# Anemia of chronic disease
hemoglobin stable, today at 11.1
No active bleeding
Continue to monitor
# Chronic urinary retention
# Muscle Spasms due to Quadriplegia
continue Tizanidine
continue gabapentin
continue baclofen
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
# Hx of Bowel resection
Colostomy care
s/p VSE 12/24, recc to cont mince moist diet
# Anxiety/Depression
continue Lorazepam; changed to PM dosing (to avoid daytime lethargy)
continue Celexa
# Chronic wounds - all present on arrival
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
Mild discolored red rash like skin (eczema appearing too) on sacral/buttocks/ischium.
Small dry scabs Le's/ankle/foot/R thigh suspect r/t his poor skin condition (eczema?), fragile skin.
L posterior hip dull slow to corbin red skin (stage 1 pressure injury).
Bilateral heels with discolored dull red scars.
Abdominal MASD r/t drainage from an old feeding tube removal site that never fully closed.
follow wound care recs
# Midodrine induced hypertension
prn Hydralazine with parameters placed
�
DVT prophylaxis: SC heparin
Code: DNR/DNI
updated daughter on the phone
total time spent 51 min
Anticipated Discharge: > 48 hours
Subjective/Interval History
-
Date of Service: December 25, 2023
Objective Data
-
Labs:
Laboratory Results
12/25/23
05:28
WBC 5.4
Hgb 11.1 L
Hct 34.3 L
Plt Count 281
Sodium 144
Potassium 3.8
Chloride 107
Carbon Dioxide 27
BUN 22 H
Creatinine 0.4 L
Glucose 221 H
Calcium 9.2
Vital Signs:
Vital Signs
Temp Pulse Resp BP Pulse Ox
36.4 C 83 20 108/66 92
12/25/23 03:22 12/25/23 08:00 12/25/23 08:00 12/25/23 08:00 12/25/23 07:09
I&O
12/24/23 12/25/23 12/26/23
06:59 06:59 06:59
Intake Total 1575 / 1575 980 / 980
Output Total 1575 / 1575 1860 / 1860
Balance 0 / 0 -880 / -880
--- NOTE | 2023-12-25 08:19 | PTCARENOTE ---
Assumed care of patient. Patient AAO X3. SR on monitor HR 70's. VS stable. Denies any pain or discomfort. Currently off unit for video swallow.
--- NOTE | 2023-12-25 10:02 | W.PN.URO.CBU ---
Today's Communication / Plan
-
no gu onterrventions
Assessment / Plan
-
urosepsi inpt with sp tube pt stabilizing with iv abs josy change s tube thos am to 20 fr silastic [ DONE]
Diagnosis
-
Date of Service: December 25, 2023
-
Patient Diagnosis:
Post Op Day:
Patient Diagnosis:
Post Op Day:
Patient Diagnosis:ngb wit urosepsi has sp tube
Post Op Day:
Subjective
-
no gu new complaints
Objective
-
Vital Signs
Temp Pulse Resp BP Pulse Ox
97.5 F 83 20 108/66 92
12/25/23 09:12 12/25/23 08:00 12/25/23 08:00 12/25/23 08:00 12/25/23 08:18
Intake and Output
12/24/23 12/25/23 12/26/23
06:59 06:59 06:59
Intake Total 1575 / 1575 980 / 980
Output Total 1575 / 1575 1860 / 1860
Balance 0 / 0 -880 / -880
Intake:
Oral fluids 775 / 775 700 / 700
IV fluids (Total) 400 / 400
IV piggybacks 400 / 400 280 / 280
Output:
Liquid stool amount 350 / 350 210 / 210
Colostomy 350 / 350 210 / 210
Urine, [place] 975 / 975 1000 / 1000
Suprapubic output 250 / 250 650 / 650
Laboratory Results
12/25/23 05:28
12/25/23 05:28
Review of Systems
-
: Difficulty Voiding
Physical Exam
-
General - well developed, well nourished, no acute distress
Chest - clear bilaterally
Abdomen - soft, non-tender, positive bowel sounds, no CVAT, no incisional pain or distention
Genitalia - normal
Rectal - normal
Skin - warm & dry with no rash
Neuro - AOx3, no motor deficits
Extremities - no clubbing, no cyanosis, no edema
Incision - clean, dry
Dressing - clean, dry, intact
Care Review
Data Reviewed
Discussed with: Nursing
[2023-12-25] MEDS: NEURONTIN 800 MG PO ×3 (10:09→21:09)
[2023-12-25] MEDS: CELEXA 10 MG PO (10:10)
[2023-12-25] MEDS: CARDIZEM 30 MG PO ×4 (10:11→21:09)
[2023-12-25] MEDS: ELIQUIS 5 MG PO ×2 (10:11→21:08)
[2023-12-25] MEDS: LIORESAL 20 MG PO ×2 (10:12→17:22)
[2023-12-25] MEDS: ZANAFLEX 8 MG PO ×4 (10:12→21:10)
[2023-12-25] MEDS: ProAmatine PO ×3 (10:13→21:09)
[2023-12-25] MEDS: FLUSH (NSS) 1 FLUSH IV (10:13)
--- NOTE | 2023-12-25 10:18 | W.PN.PUL3 ---
Today's Communication / Plan
-
Continue IV antibiotics for additional 2 days -not ready for discharge.
Continue nebulizer therapy for secretion clearance
Dexamethasone weaned and down, hopefully can taper off in the next 24 to 48 hours.
Wean down FiO2 to maintain pulse ox above 90%-currently on 4 L.
Follow cultures
Speech modified barium swallow performed today 12/25/2023-pending
Assessment
-
Assessment: 63-year-old male with a past medical history of quadriplegia s/p spinal infarct (2014) s/p colostomy/suprapubic catheter/PEG, history of cardiopulmonary arrest due to sepsis (08/2021), stage IV sacral decubitus ulcer s/p resection with
diverting colostomy, personal history of COVID-19 (01/2021), chronic hypotension on midodrine, anemia of chronic disease, oropharyngeal dysphagia s/p G-tube, history of CVA (2012), neurogenic bladder s/p chronic suprapubic catheter, paroxysmal A-fib
in the setting of sepsis (2018), DM type II, history of MRSA, depression/anxiety and history of aspiration ammonia who presents with fevers, low oxygen and tachycardia. Patient reportedly was diagnosed with pneumonia 2 days ago and prescribed
Zithromax but symptoms persisted. Patient has been more lethargic lately and weak. In the ER he was febrile to 100.5 �F, pulse rate 104, breathing at 14 breaths/minute, BP was low at 60/43 and saturating 94% on 2 L/min nasal cannula. Labs showed
leukocytosis to 15.3, anemia to 11.7, with urinalysis positive for UTI with positive nitrites, +2 leukocyte esterase and 11�15 urine WBC with many urine bacteria. COVID antigen was negative. Blood cultures + urine cultures were collected. CXR
obtained showing chronic atelectasis of the left lower lobe with increased reticulonodular markings in the right lung. IVF with NS 0.9% x 2 L + Zosyn was given to him in the ER. He was admitted to the IMU for further care and pulmonary service
consulted for additional management/recommendations.
Chronic conditions [employer]: Quadriplegia from spinal infarct (2014) s/p colostomy/suprapubic catheter + G-tube, history of cardiopulmonary arrest due to sepsis (08/2021), sacral decubitus stage IV ulcer s/p sacral resection with diverting colostomy,
recurrent hospitalizations for septic shock, personal history of COVID-19 (01/10/2021), chronic hypotension on midodrine, anemia of chronic disease, oropharyngeal dysphagia s/p G-tube, history of CVA (2012), neurogenic bladder s/p chronic suprapubic
catheter, DM type II, paroxysmal A-fib in the setting of sepsis (2018), history of MRSA, conjunctivitis, depression/anxiety, impaired vision, recurrent UTI/pyelonephritis, history of aspiration pneumonia, protein calorie malnutrition, ambulatory
dysfunction
Impression:
#Sepsis without shock due to UTI and pneumonia (aspiration suspected)
#Complicated UTI with history of suprapubic catheter
#Right sided PNA likely due to aspiration
#New onset A-fib with a history of paroxysmal A-fib in the setting of sepsis (2018)
#Acute�subacute impacted fracture of right humeral neck
#Chronic anemia (baseline Hb: 11�12.5g/dL)
#Hyperglycemia
#Quadriplegia s/p spinal infarct (2014) s/p colostomy/suprapubic catheter/PEG
#History of cardiopulmonary arrest due to sepsis (August 2021)
#Stage IV sacral decubitus ulcer s/p sacral resection with diverting colostomy
#Recurrent UTI/pyelonephritis
#History of aspiration pneumonia
#Chronic hypotension on midodrine
Plan:
Right sided multilobar pneumonia on chest x-ray 12/22/2023-possibly aspiration. Afebrile, resolved leukocytosis.
- Continue with antibiotics - currently on Zosyn (started AM of 12/21/2023)
-Complete 7 days of antibiotics. May maintain Zosyn for additional 2 days versus if discharge planning can transition to Augmentin.
- Follow-up infectious workup including blood cultures + urine cultures (both NGTD)
- Check sputum Cx (if patient can produce a decent sample)
- Legionella and S pneumonia urine antigens both negative
-MRSA screening negative/influenza negative
- Continue DuoNebs QID (home med) with prn doses in between
- Given worsening hypoxia, systemic steroids were started. --> weaned down to 4mg IV q12hr today (12/24)
Speech evaluation ongoing.
- Maintain SpO2 >90-94% with supplemental O2 and wean as tolerated
-Currently on 4 L via nasal cannula. Pulse ox during my evaluation 93%. Patient not chronically on oxygen therapy.
-Patient has very poor cough effort, at risk for atelectasis.
-Acapella device as able.
-Frequent suctioning as able
- Incentive spirometer encouraged if patient able to use it-noted quadriplegia.
- Aspiration precautions and keep HOB >30-45�
-Patient went into A-fib since yesterday
- Eliquis started by primary team
-Management per cardiology
- Orthopedic surgery consulted for right humeral neck fracture
- Urology consulted -suprapubic catheter
- DVT ppx: Eliquis
Pulmonary service will continue to follow along. Patient not ready for discharge, remains 4 L supplemental oxygen, mild respiratory distress at rest. High risk for
Atelectasis, hypercapnic respiratory failure due to quadriplegia on muscle weakness.

Data:
CXR 12/21/2023:
Chronic atelectasis of the left lower lobe.
Increased reticulonodular markings throughout the right lung, patchy distribution.
Total time spent today was 50 minutes for this encounter. Time includes reviewing laboratory test/imaging results, reviewing pertinent medical records, obtaining and reviewing medical history, performing an appropriate exam, ordering medications,
tests and procedures. Time also includes documentation of this encounter, coordinating patient care and communicating with other healthcare professionals. Total time does not include separately billed tests performed on this date of service.
Subjective Data
-
Date of Service:
Date of Service: December 25, 2023
Chief Complaint: Pulmonary Follow Up (Pneumonia right side possibly aspiration/bronchospasm/hypoxemic respiratory failure)
Review of Systems
General: Other (Difficult to obtain)
Objective Data
Data Reviewed
Vital Signs / I&O / Oxygen:
Vital Signs
Temp Pulse Resp BP Pulse Ox
97.5 F 83 20 108/66 92
12/25/23 09:12 12/25/23 08:00 12/25/23 08:00 12/25/23 08:00 12/25/23 08:18
Intake and Output
12/24/23 12/25/23 12/26/23
06:59 06:59 06:59
Intake Total 1575 / 1575 980 / 980
Output Total 1575 / 1575 1860 / 1860
Balance 0 / 0 -880 / -880
SaO2 92
Nasal Cannula flow liters per 4
minute
Physical Exam
General: Respiratory Distress (negative), Sweats (negative) and Other (Appears uncomfortable although not in acute distress)
HEENT: Normocephalic and Anicteric
Cardiovascular: S1-S2 and Peripheral Edema (negative)
Respiratory: Wheeze (negative), Crackles (Bilateral throughout respiratory cycle), Rhonchi (Bilateral throughout respiratory cycle) and Non-Labored Respirations
GI: Soft, Non Distended, Non Tender, Normal Bowel Sounds and Other (LLQ colostomy)
Neurology: Awake, Alert and Tremors (negative)
Skin: Warm, Dry and Jaundice (negative)
Labs/Micro/Reports
Lab Data
12/25/23 05:28
12/25/23 05:28
Microbiology
12/21/23 11:20 Blood/Venous Blood Culture - Preliminary
No Growth in 72 hours- Final report to follow
12/21/23 11:17 Blood/Venous Blood Culture - Preliminary
No Growth in 72 hours- Final report to follow
12/23/23 19:54 Urine Legionella Urinary Antigen - Final
Negative for Legionella pneumophila Serogroup 1 antigen.
A negative result does not rule out the possiblity of
Legionella infection due to other serogroups or species of
Legionella. Clinical correlation is recommended.
12/23/23 19:54 Urine Streptococcus pneumoniae Antigen (M - Final
Negative for Streptococcus pneumoniae antigen.
A negative result does not exclude infection with
Streptococcus pneumoniae. Clinical correlation is
recommended.
12/21/23 16:43 Nose MRSA Screen - Final
No Methicillin Resistant Staphylococcus aureus isolated.
12/21/23 11:17 Urine Urine Culture - Final
[2023-12-25] MEDS: DESENEX/MITRAZOL/ZEASORB 1 APPLIC TOPICAL ×2 (11:10→21:08)
--- NOTE | 2023-12-25 12:25 | PTOTSP ---
Video Swallow Study
Summary: WFL (within functional limits) to minimal oral/pharyngeal stage differences noted. No penetration, aspiration, or significant residue. Esophageal sweep unremarkable.
Patient reported an episode of dysphagia 12/22/2023 with chopped chicken which he attributed to positioning and lack of partials. He consented to continued diet modifications (L5 minced, thin) until return to [facility] where partials are
present.
Recommendations:
1. Minced/moist solids (L5) and thin liquids.
2. Aspiration precautions and full feeding assistance
3. Upright to 90 degrees, small bites/sips, slow rate, oral care 3x daily
5. Meds as best tolerated
No further dysphagia therapy warranted. Please reconsult as appropriate.
--- NOTE | 2023-12-25 12:56 | W.PN.UPDATE ---
Update Note
Progress Note Update
Patient seen and examined
Right proximal humerus fx of unknown age.
Per radiologist, there is concern for metastatic disease and recommend bone scan
This was ordered and will be done when material is available
Non op treatment for now
[2023-12-25] MEDS: FLUSH (NSS) 2 FLUSH IV ×2 (13:38→17:22)
[2023-12-25 17:37] LABS: Glucose - Point of Care 241 mg/dl (70-99)
[2023-12-25] MEDS: NOVOLOG FLEXPEN-LOW RESISTANCE 2 UNITS SC (17:57)
[2023-12-25] MEDS: ATIVAN 0.5 MG PO (21:09)
[2023-12-25] MEDS: LIORESAL 40 MG PO (21:11)
[2023-12-25 21:47] LABS: Glucose - Point of Care 250 mg/dl (70-99)
[2023-12-26] VITALS (16 sets, daily range): BP systolic 118–188; BP diastolic 70–110; BMI 23.5
--- NOTE | 2023-12-26 01:25 | PTCARENOTE ---
Assumed care for pt overnight. Received report from zaina DOUGLAS. AAOx3. Normal sinus rhythm on tele HR in the 70's. Pt has audible rhonchi with diminished lung sounds, with a weak non-productive cough. Pt is on 4L NC and maintaining O2 sat of 95%.
Continuing IV antibiotics. Colostomy bag changed and stoma cleaned, stoma is pink and budded. Mepilex foams intact, pt agreeable to QT turns. Heels are elevated with green air boots. Pt has call gastelum next to head and rings appropriately.
[2023-12-26] MEDS: OCEAN, SALINE MIST 1 SPRAYS NASAL (04:25)
[2023-12-26 04:41] LABS: % Basophils 0.1 % (0-2); % Immature Granulocytes 1.2 % (0-0.5); % Lymphocytes 2.5 % (20.5-51.1); % Monocytes 4.5 % (1.7-9.3); % Neutrophils 91.7 % (42.2-75.2); Absolute Immature Granulocytes 0.1 10^3/uL (0-0.05); Absolute Lymphocytes 0.3 10^3/uL (1.2-3.4); Absolute Monocytes 0.5 10^3/uL (0.1-0.6); Absolute Neutrophils 9.7 10^3/uL (1.4-6.5); Hemoglobin 11.1 g/dL (13.0-18.0); Mean Corp Hgb Conc. 32.6 g/dL (33.0-37.0); Mean Corpuscular Hgb 29.3 pg (27.0-31.0); Mean Corpuscular Volume 89.7 fL (80.0-94.0); Nucleated Red Blood Cells % 0 % (-); Platelet Count 287 10^3/uL (130-400); Red Blood Cell Count 3.79 10^6/uL (4.70-6.10); Red Cell Dist. Width 15.1 % (11.5-14.5); White Blood Cell Count 10.6 10^3/uL (4.8-10.8)
[2023-12-26 05:16] LABS: Blood Urea Nitrogen 23 mg/dl (9-20); Carbon Dioxide 27 mmol/L (22-30); Chloride 105 mmol/L (98-107); Estimated Creatinine Clearance 107 ml/min; Glucose 173 mg/dl (70-99); Potassium 3.8 mmol/L (3.5-5.1); Sodium 144 mmol/L (135-145); eGFR > 60.00
[2023-12-26] MEDS: ZOSYN 100 IV ×4 (05:29→23:20)
--- NOTE | 2023-12-26 05:42 | PTCARENOTE ---
Patient desat to 89% on 4L midflow. Put O2 up to 6L, sat came up to 92%. Notified respiratory, due for a duoneb treatment.
[2023-12-26] MEDS: DUONEB 3 ML INH (07:05)
--- NOTE | 2023-12-26 07:42 | W.PN.HOSP.TC ---
Today's Communication/Plan
-
see A/P
Assessment / Plan
Assessment / Plan
A/P:
# Acute on chronic hypoxic respiratory failure
confirmed with , initially records indicated 4L baseline but she states NO baseline O2 needs.
O2 support at 15L -> 6L, wean as able
# Severe Sepsis (fever, leucocytosis, tachycardia) with hypotension in setting of Chronic hypotension secondary to autonomic dysfunction/polypharmacy
# Aspiration PNA
s/p IVF per sepsis protocol
continue chronic midodrine with parameters
continue empiric Zosyn; note was on Azithromycin at [facility] for pneumonia
repeat CXR 12/21 10PM: RAPID INTERVAL INCREASE in LARGE AIRSPACE CONSOLIDATIONS in the right upper lobe, right middle lobe, right lower lobe, and left lower lobe since 12/21/2023. Diagnostic possibilities are (1) acute aspiration pneumonitis or (2)
severe pneumonia.
weaning IV steroids (was started for wheezing),
Cultures negative
s/p VSE 12/24, recc to cont mince moist diet
prn nebs
pulmonary consulted
# CAUTI with suprapubic catheter POA
continue Abx as above
s/p SPC exchange 12/22; appreciate Urology
# Acute to subacute impacted fracture of the right humeral neck
lives in facility, per , he suffered a shoulder fracture by hitting his arm against a metal bar.
Shoulder X-ray noted healing subacute right humeral neck fracture but possible blastic osseous metastatic disease.
d/w pt and about finding, they prefer to NOT further investigate the blastic bone lesions. Bone scan cancelled.
Informed pt and that if they change their mind, they can always follow up with outpt PCP / oncologist for further eval.
PSA was sent, follow up
Orthopedics consulted
# paroxysmal A fib
noted on 12/23
Pt was started with Cardizem 30 mg QID and Eliquis 5 mg BID, cont both
Change Albuterol neb to levalbuterol neb
# Anemia of chronic disease
hemoglobin stable, today at 11.1
No active bleeding
Continue to monitor
# Chronic urinary retention
# Muscle Spasms due to Quadriplegia
continue Tizanidine
continue gabapentin
continue baclofen
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
# Hx of Bowel resection
Colostomy care
s/p VSE 12/24, recc to cont mince moist diet
# Anxiety/Depression
continue Lorazepam; changed to PM dosing (to avoid daytime lethargy)
continue Celexa
# Chronic wounds - all present on arrival
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
Mild discolored red rash like skin (eczema appearing too) on sacral/buttocks/ischium.
Small dry scabs Le's/ankle/foot/R thigh suspect r/t his poor skin condition (eczema?), fragile skin.
L posterior hip dull slow to corbin red skin (stage 1 pressure injury).
Bilateral heels with discolored dull red scars.
Abdominal MASD r/t drainage from an old feeding tube removal site that never fully closed.
follow wound care recs
# Midodrine induced hypertension
prn Hydralazine with parameters placed
�
DVT prophylaxis: SC heparin
Code: DNR/DNI
DW RN
updated on the phone
total time spent 51 min
Anticipated Discharge: > 48 hours
Subjective/Interval History
-
Date of Service: December 26, 2023
Objective Data
-
Labs:
Laboratory Results
12/26/23
04:23
WBC 10.6
Hgb 11.1 L
Hct 34.0 L
Plt Count 287
Sodium 144
Potassium 3.8
Chloride 105
Carbon Dioxide 27
BUN 23 H
Creatinine 0.3 L
Glucose 173 H
Calcium 9.0
Vital Signs:
Vital Signs
Temp Pulse Resp BP Pulse Ox
36.6 C 68 18 128/76 93
12/26/23 03:23 12/26/23 07:05 12/26/23 07:05 12/26/23 06:00 12/26/23 07:05
I&O
12/25/23 12/26/23 12/27/23
06:59 06:59 06:59
Intake Total 980 / 980 1260 / 1260
Output Total 1860 / 1860 1505 / 1505
Balance -880 / -880 -245 / -245
Review of Systems
-
History Source: Patient
All other systems: Reviewed and negative
Physical Exam
-
General: Well Developed, Respiratory Distress (chronic) and Appears Chronically Ill
HEENT: Normocephalic, Atraumatic and Oxygen (6L NC)
Respiratory: Non Labored Respirations; Negative Accessory Resp Muscle Use
Cardiac: Regular Rhythm and S1/S2
Neuro: Awake, Alert and Other (bedbound, contractures)
Psych: Calm and Intact Judgement/Insight (somewhat)
Data Reviewed
-
Labs: Labs Reviewed by me
[2023-12-26] MEDS: ProAmatine 5 MG PO ×2 (07:48→16:04)
[2023-12-26] MEDS: ZANAFLEX 8 MG PO ×4 (07:54→21:06)
[2023-12-26] MEDS: CARDIZEM 30 MG PO ×4 (07:55→21:07)
[2023-12-26] MEDS: LIORESAL 20 MG PO ×2 (07:55→17:04)
[2023-12-26] MEDS: CELEXA 10 MG PO (07:56)
[2023-12-26] MEDS: ELIQUIS 5 MG PO ×2 (07:57→19:53)
[2023-12-26] MEDS: NEURONTIN 800 MG PO ×3 (07:57→21:06)
[2023-12-26] MEDS: DESENEX/MITRAZOL/ZEASORB 1 APPLIC TOPICAL ×2 (07:58→19:52)
[2023-12-26 08:22] LABS: Glucose - Point of Care 175 mg/dl (70-99)
[2023-12-26] MEDS: NOVOLOG FLEXPEN-LOW RESISTANCE 1 UNITS SC (09:20)
[2023-12-26] MEDS: DECADRON 4 MG IV ×2 (09:57→21:07)
--- NOTE | 2023-12-26 11:42 | W.PN.PUL3 ---
Today's Communication / Plan
-
Continue antibiotics until tomorrow
Continue secretion clearance interventions
Wean down FiO2
Repeat chest x-ray tomorrow
Aspiration precaution
Assessment
-
Assessment: 63-year-old male with a past medical history of quadriplegia s/p spinal infarct (2014) s/p colostomy/suprapubic catheter/PEG, history of cardiopulmonary arrest due to sepsis (08/2021), stage IV sacral decubitus ulcer s/p resection with
diverting colostomy, personal history of COVID-19 (01/2021), chronic hypotension on midodrine, anemia of chronic disease, oropharyngeal dysphagia s/p G-tube, history of CVA (2012), neurogenic bladder s/p chronic suprapubic catheter, paroxysmal A-fib
in the setting of sepsis (2018), DM type II, history of MRSA, depression/anxiety and history of aspiration ammonia who presents with fevers, low oxygen and tachycardia. Patient reportedly was diagnosed with pneumonia 2 days ago and prescribed
Zithromax but symptoms persisted. Patient has been more lethargic lately and weak. In the ER he was febrile to 100.5 �F, pulse rate 104, breathing at 14 breaths/minute, BP was low at 60/43 and saturating 94% on 2 L/min nasal cannula. Labs showed
leukocytosis to 15.3, anemia to 11.7, with urinalysis positive for UTI with positive nitrites, +2 leukocyte esterase and 11�15 urine WBC with many urine bacteria. COVID antigen was negative. Blood cultures + urine cultures were collected. CXR
obtained showing chronic atelectasis of the left lower lobe with increased reticulonodular markings in the right lung. IVF with NS 0.9% x 2 L + Zosyn was given to him in the ER. He was admitted to the IMU for further care and pulmonary service
consulted for additional management/recommendations.
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
recurrent hospitalizations for septic shock, personal history of COVID-19 (01/10/2021), chronic hypotension on midodrine, anemia of chronic disease, oropharyngeal dysphagia s/p G-tube, history of CVA (2012), neurogenic bladder s/p chronic suprapubic
catheter, DM type II, paroxysmal A-fib in the setting of sepsis (2018), history of MRSA, conjunctivitis, depression/anxiety, impaired vision, recurrent UTI/pyelonephritis, history of aspiration pneumonia, protein calorie malnutrition, ambulatory
dysfunction
Impression:
#Sepsis without shock due to UTI and pneumonia (aspiration suspected)
#Complicated UTI with history of suprapubic catheter
#Right sided PNA likely due to aspiration
#New onset A-fib with a history of paroxysmal A-fib in the setting of sepsis (2018)
#Acute�subacute impacted fracture of right humeral neck
#Chronic anemia (baseline Hb: 11�12.5g/dL)
#Hyperglycemia
#Quadriplegia s/p spinal infarct (2014) s/p colostomy/suprapubic catheter/PEG
#History of cardiopulmonary arrest due to sepsis (August 2021)
#Stage IV sacral decubitus ulcer s/p sacral resection with diverting colostomy
#Recurrent UTI/pyelonephritis
#History of aspiration pneumonia
#Chronic hypotension on midodrine
Plan:
Right sided multilobar pneumonia on chest x-ray 12/22/2023-possibly aspiration. Afebrile, resolved leukocytosis.
Seems to be responding to current antibiotics per
- Continue with antibiotics - currently on Zosyn (started AM of 12/21/2023) day #6
-Complete 7 days of antibiotics. Will be completed on 12/27/2023.
- Follow-up infectious workup including blood cultures + urine cultures (both NGTD)
- Check sputum Cx (if patient can produce a decent sample)-unable to produce. Poor cough effort
- Legionella and S pneumonia urine antigens both negative
-MRSA screening negative/influenza negative
Continue secretion clearance interventions:
- Continue DuoNebs QID (home med) with prn doses in between
- Given worsening hypoxia, systemic steroids were started. --> weaned down to 4mg IV q12hr today (12/24)-will continue to decrease tomorrow 12/27/2023
-
Speech modifications noted: WFL (within functional limits) to minimal oral/pharyngeal stage differences noted. No penetration, aspiration, or significant residue. Esophageal sweep unremarkable.
Diet has been adjusted.
-
Not usually on oxygen therapy.
Still complaining of increased work of breathing at rest.
Fluctuating between 4 and 6 L nasal cannula. This is new for him.
Continue to wean down to maintain pulse ox above 90%.
-Patient has very poor cough effort, at risk for atelectasis.
-Acapella device as able.
-Frequent suctioning as able
- Incentive spirometer encouraged if patient able to use it-noted quadriplegia.
- Aspiration precautions and keep HOB >30-45�
Repeat chest x-ray 12/27/2023 order has been placed
-Patient went into A-fib since yesterday
- Eliquis started by primary team
-Management per cardiology
- Orthopedic surgery-conservative management per
- Urology consulted -suprapubic catheter
- DVT ppx: Eliquis
Pulmonary service will continue to follow along. Patient not ready for discharge, remains 4-6 L L supplemental oxygen, mild respiratory distress at rest. High risk for
Atelectasis, hypercapnic respiratory failure due to quadriplegia on muscle weakness.

Data:
CXR 12/21/2023:
Chronic atelectasis of the left lower lobe.
Increased reticulonodular markings throughout the right lung, patchy distribution.
Subjective Data
-
Date of Service:
Date of Service: December 26, 2023
Chief Complaint: Pulmonary Follow Up (Pneumonia right side possibly aspiration/bronchospasm/hypoxemic respiratory failure)
Subjective:
Continues to have difficulty expectorating.
Remains on supplemental oxygen
Feels slightly short of breath at rest
Review of Systems
Cardiopulmonary: Dyspnea (at rest)
Neuro: Headache (n) and Dizziness (n)
Objective Data
Data Reviewed
Vital Signs / I&O / Oxygen:
Vital Signs
Temp Pulse Resp BP Pulse Ox
97.6 F 86 20 120/76 95
12/26/23 11:00 12/26/23 08:00 12/26/23 08:00 12/26/23 08:00 12/26/23 08:00
Intake and Output
12/25/23 12/26/23 12/27/23
06:59 06:59 06:59
Intake Total 980 / 980 1260 / 1260
Output Total 1860 / 1860 1505 / 1505
Balance -880 / -880 -245 / -245
SaO2 95
Nasal Cannula flow liters per 6
minute
Physical Exam
General: Respiratory Distress (negative), Sweats (negative) and Other (Appears uncomfortable although not in acute distress)
HEENT: Normocephalic and Anicteric
Cardiovascular: S1-S2 and Peripheral Edema (negative)
Respiratory: Wheeze (negative), Crackles (Bilateral throughout respiratory cycle), Rhonchi (Bilateral throughout respiratory cycle) and Non-Labored Respirations
GI: Soft, Non Distended, Non Tender, Normal Bowel Sounds and Other (LLQ colostomy)
Neurology: Awake, Alert and Tremors (negative)
Skin: Warm, Dry and Jaundice (negative)
Labs/Micro/Reports
Lab Data
12/26/23 04:23
12/26/23 04:23
Microbiology
12/21/23 11:20 Blood/Venous Blood Culture - Final
No Growth - Final Report
12/21/23 11:17 Blood/Venous Blood Culture - Final
No Growth - Final Report
12/23/23 19:54 Urine Legionella Urinary Antigen - Final
Negative for Legionella pneumophila Serogroup 1 antigen.
A negative result does not rule out the possiblity of
Legionella infection due to other serogroups or species of
Legionella. Clinical correlation is recommended.
12/23/23 19:54 Urine Streptococcus pneumoniae Antigen (M - Final
Negative for Streptococcus pneumoniae antigen.
A negative result does not exclude infection with
Streptococcus pneumoniae. Clinical correlation is
recommended.
12/21/23 16:43 Nose MRSA Screen - Final
No Methicillin Resistant Staphylococcus aureus isolated.
[2023-12-26 12:02] LABS: Glucose - Point of Care 248 mg/dl (70-99)
[2023-12-26] MEDS: NOVOLOG FLEXPEN-LOW RESISTANCE 2 UNITS SC (13:22)
[2023-12-26] MEDS: ATROVENT NEBULES 0.5 MG INH ×2 (14:32→19:50)
[2023-12-26] MEDS: XOPENEX 1.25 MG INHALANT SOLUTION INH ×2 (14:33→19:50)
--- NOTE | 2023-12-26 15:04 | PTCARENOTE ---
Patient is Ax3. Patient ate 100% of breakfast with assistance of RN. On minced and moist diet due to risk of aspiration. Right hand IV was removed due to leakage and left hand IV removed due to infiltration. Right wrist IV placed by IV team and
flushing appropriately. Continuing to monitor.
[2023-12-26 16:41] LABS: Glucose - Point of Care 280 mg/dl (70-99)
--- NOTE | 2023-12-26 16:57 | CM ---
Patient from [facility] with Hx quadriplegia, colostomy with Dx Acute on chronic hypoxic respiratory failure, Severe Sepsis. O2 5L midflow. Dysphagia diet. Receiving IV Abx, IV decadron. Wound care for sacral decub. Per nursing assessment;
A/O. PT; No skilled PT needed.
[facility]: The ph for report [phone], fax [phone].
Plan contact patient/family prior to return to SNF.
Plan return to [facility] when medically ready.
[2023-12-26] MEDS: NOVOLOG FLEXPEN-LOW RESISTANCE 3 UNITS SC (18:29)
[2023-12-26] MEDS: ATIVAN 0.5 MG PO (19:53)
[2023-12-26] MEDS: ProAmatine PO (21:01)
[2023-12-26] MEDS: LIORESAL 40 MG PO (21:06)
[2023-12-26 22:15] LABS: Glucose - Point of Care 266 mg/dl (70-99)
[2023-12-27] VITALS (12 sets, daily range): BP systolic 106–177; BP diastolic 74–115; BMI 23.0
--- NOTE | 2023-12-27 03:59 | DOWNTIME ---
There was a [employer] Client Data Typist Downtime on 12/27/2023 from 0100 to 12/27/2023 at 0300. Downtime documentation of patient's care, including medication administrations, has been reconciled in the electronic record per guidelines. Refer to the
patient's paper chart under the miscellaneous tab to see printed paper medication records and downtime forms.
--- NOTE | 2023-12-27 04:06 | PTCARENOTE ---
Patient desatted in the high 80s while asleep. 02 turned to up to 7 liters.
[2023-12-27 04:18] LABS: % Basophils 0.1 % (0-2); % Immature Granulocytes 1.8 % (0-0.5); % Lymphocytes 3.7 % (20.5-51.1); % Monocytes 2.4 % (1.7-9.3); Absolute Immature Granulocytes 0.2 10^3/uL (0-0.05); Absolute Lymphocytes 0.4 10^3/uL (1.2-3.4); Absolute Monocytes 0.3 10^3/uL (0.1-0.6); Absolute Neutrophils 10.3 10^3/uL (1.4-6.5); Hematocrit 36.6 % (39.0-52.0); Hemoglobin 11.8 g/dL (13.0-18.0); Mean Corp Hgb Conc. 32.2 g/dL (33.0-37.0); Mean Corpuscular Hgb 28.7 pg (27.0-31.0); Mean Corpuscular Volume 89.1 fL (80.0-94.0); Mean Platelet Volume 9.1 fL (7.4-10.4); Nucleated Red Blood Cells % 0 % (-); Platelet Count 369 10^3/uL (130-400); Red Blood Cell Count 4.11 10^6/uL (4.70-6.10); Red Cell Dist. Width 15.1 % (11.5-14.5); White Blood Cell Count 11.2 10^3/uL (4.8-10.8)
[2023-12-27 04:23] LABS: Blood Urea Nitrogen 19 mg/dl (9-20); Calcium 8.7 mg/dl (8.4-10.2); Carbon Dioxide 29 mmol/L (22-30); Chloride 101 mmol/L (98-107); Estimated Creatinine Clearance 107 ml/min; Glucose 172 mg/dl (70-99); Magnesium 2.1 mg/dl (1.6-2.3); Potassium 4.2 mmol/L (3.5-5.1); Sodium 142 mmol/L (135-145); eGFR > 60.00
[2023-12-27] MEDS: XOPENEX 1.25 MG INHALANT SOLUTION INH ×4 (04:39→20:07)
[2023-12-27] MEDS: ZOSYN 100 IV ×4 (05:46→23:06)
[2023-12-27] MEDS: ATROVENT NEBULES 0.5 MG INH ×3 (07:07→20:07)
--- NOTE | 2023-12-27 07:35 | PTCARENOTE ---
Pt's SPO2 dropping during report this morning. Pt was on 10L NC, pt increased to 15L. RT at bedside to give breathing treatment.
--- NOTE | 2023-12-27 08:15 | W.PN.HOSP.TC ---
Today's Communication/Plan
-
Cont O2 support, now back to 15 L mid flow
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 Low dose PRN ordered
Mucinex added
Assessment / Plan
Assessment / Plan
A/P:
# Acute on chronic hypoxic respiratory failure
confirmed with , initially records indicated 4L baseline but she states NO baseline O2 needs.
O2 support back to 15L mid flow, wean as able
# Severe Sepsis (fever, leucocytosis, tachycardia) with hypotension in setting of Chronic hypotension secondary to autonomic dysfunction/polypharmacy
# Aspiration PNA
s/p IVF per sepsis protocol
continue chronic midodrine with parameters
continue empiric Zosyn; was on Azithromycin at [facility] for pneumonia
repeat CXR 12/21: RAPID INTERVAL INCREASE in LARGE AIRSPACE CONSOLIDATIONS in the right upper lobe, right middle lobe, right lower lobe, and left lower lobe since 12/21/2023. Diagnostic possibilities are (1) acute aspiration pneumonitis or (2) severe
pneumonia.
repeat CXR 12/26 showed improvement: opacification of the right middle lobe again seen, opacification in the mid and lower right chest improved likely representing resolving pneumonia.
weaning IV steroids (was started for wheezing),
Add Mucinex
Cultures negative
s/p VSE 12/24, recc to cont mince moist diet
prn nebs
pulmonary on board
# CAUTI with suprapubic catheter POA
continue Abx as above
s/p SPC exchange 12/22; appreciate Urology
# Acute to subacute impacted fracture of the right humeral neck
lives in facility, per , he suffered a shoulder fracture by hitting his arm against a metal bar.
Shoulder X-ray noted healing subacute right humeral neck fracture but possible blastic osseous metastatic disease.
d/w pt and about finding, they prefer to NOT further investigate the blastic bone lesions. Bone scan cancelled.
Informed pt and that if they change their mind, they can always follow up with outpt PCP / oncologist for further eval.
PSA was sent, follow up
Orthopedics consulted
# paroxysmal A fib
noted on 12/23
Pt was started with Cardizem 30 mg QID, change to CD 120 mg daily.
Started Eliquis 5 mg BID, cont
Changed Albuterol neb to levalbuterol neb
# Anemia of chronic disease
hemoglobin stable, today at 11.8
No active bleeding
Continue to monitor
# Chronic urinary retention
# Muscle Spasms due to Quadriplegia
continue Tizanidine
continue gabapentin
continue baclofen
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
# Hx of Bowel resection
Colostomy care
s/p VSE 12/24, recc to cont mince moist diet
# Anxiety/Depression
NU[employer] ENGINEER Lorazepam was changed to PM dosing (to avoid daytime lethargy), will stop standing dose due to likely causing overnight desaturation, cont low dose 0.25 mg PRN
continue Celexa
# Chronic wounds - all present on arrival
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
Mild discolored red rash like skin (eczema appearing too) on sacral/buttocks/ischium.
Small dry scabs Le's/ankle/foot/R thigh suspect r/t his poor skin condition (eczema?), fragile skin.
L posterior hip dull slow to corbin red skin (stage 1 pressure injury).
Bilateral heels with discolored dull red scars.
Abdominal MASD r/t drainage from an old feeding tube removal site that never fully closed.
follow wound care recs
# Midodrine induced hypertension
prn Hydralazine with parameters placed
�
DVT prophylaxis: SC heparin
Code: DNR/DNI
DW RN
updated on the phone
total time spent 51 min
Anticipated Discharge: > 48 hours
Subjective/Interval History
-
Date of Service: December 27, 2023
Objective Data
-
Labs:
Laboratory Results
12/27/23
03:28
WBC 11.2 H
Hgb 11.8 L
Hct 36.6 L
Plt Count 369 D
Sodium 142
Potassium 4.2
Chloride 101
Carbon Dioxide 29
BUN 19
Creatinine 0.4 L
Glucose 172 H
Calcium 8.7
Vital Signs:
Vital Signs
Temp Pulse Resp BP Pulse Ox
36.6 C 72 20 132/113 88
12/27/23 07:55 12/27/23 07:11 12/27/23 07:11 12/27/23 06:00 12/27/23 07:11
I&O
12/26/23 12/27/23 12/28/23
06:59 06:59 06:59
Intake Total 1260 / 1260 620 / 620
Output Total 1505 / 1505 3300 / 3300
Balance -245 / -245 -2680 / -2680
Review of Systems
-
History Source: Patient
All other systems: Reviewed and negative
Physical Exam
-
General: Well Developed, Comfortable, Respiratory Distress and Appears Chronically Ill
HEENT: Normocephalic, Atraumatic and Oxygen (back to 15 L NC)
Respiratory: Non Labored Respirations; Negative Accessory Resp Muscle Use
Cardiac: Regular Rhythm and S1/S2
Neuro: Awake, Alert and Other (bedbound, contractures upper arms)
Psych: Calm and Intact Judgement/Insight (somewhat)
Data Reviewed
-
Diagnostic Radiology: Image personally visualized and interpreted and Report Reviewed by me
Labs: Labs Reviewed by me
[2023-12-27] MEDS: ProAmatine 5 MG PO (08:49)
[2023-12-27] MEDS: LIORESAL 20 MG PO ×2 (08:50→17:05)
[2023-12-27] MEDS: ELIQUIS 5 MG PO ×2 (08:50→20:49)
[2023-12-27] MEDS: CARDIZEM CD 120 MG PO (08:51)
[2023-12-27] MEDS: MUCINEX 1200 MG PO ×2 (08:51→20:49)
[2023-12-27] MEDS: CELEXA 10 MG PO (08:51)
[2023-12-27] MEDS: NEURONTIN 800 MG PO ×3 (08:51→20:50)
[2023-12-27] MEDS: ZANAFLEX 8 MG PO ×4 (08:52→20:49)
[2023-12-27] MEDS: DECADRON 4 MG IV (08:52)
[2023-12-27] MEDS: DESENEX/MITRAZOL/ZEASORB 1 APPLIC TOPICAL ×2 (08:53→20:49)
[2023-12-27] MEDS: CARDIZEM PO (09:22)
[2023-12-27 09:54] LABS: Glucose - Point of Care 165 mg/dl (70-99)
--- NOTE | 2023-12-27 10:27 | W.PN.PUL3 ---
Today's Communication / Plan
-
Continue oxygen supplementation
Nebulizer
Nasal pharyngeal suctioning as able
Head of the bed elevation/aspiration precaution
Avoid sedatives
Continue antibiotics for today and discontinue tomorrow.
Will follow
Assessment
-
Assessment: 63-year-old male with a past medical history of quadriplegia s/p spinal infarct (2014) s/p colostomy/suprapubic catheter/PEG, history of cardiopulmonary arrest due to sepsis (08/2021), stage IV sacral decubitus ulcer s/p resection with
diverting colostomy, personal history of COVID-19 (01/2021), chronic hypotension on midodrine, anemia of chronic disease, oropharyngeal dysphagia s/p G-tube, history of CVA (2012), neurogenic bladder s/p chronic suprapubic catheter, paroxysmal A-fib
in the setting of sepsis (2018), DM type II, history of MRSA, depression/anxiety and history of aspiration ammonia who presents with fevers, low oxygen and tachycardia. Patient reportedly was diagnosed with pneumonia 2 days ago and prescribed
Zithromax but symptoms persisted. Patient has been more lethargic lately and weak. In the ER he was febrile to 100.5 �F, pulse rate 104, breathing at 14 breaths/minute, BP was low at 60/43 and saturating 94% on 2 L/min nasal cannula. Labs showed
leukocytosis to 15.3, anemia to 11.7, with urinalysis positive for UTI with positive nitrites, +2 leukocyte esterase and 11�15 urine WBC with many urine bacteria. COVID antigen was negative. Blood cultures + urine cultures were collected. CXR
obtained showing chronic atelectasis of the left lower lobe with increased reticulonodular markings in the right lung. IVF with NS 0.9% x 2 L + Zosyn was given to him in the ER. He was admitted to the IMU for further care and pulmonary service
consulted for additional management/recommendations.
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
recurrent hospitalizations for septic shock, personal history of COVID-19 (01/10/2021), chronic hypotension on midodrine, anemia of chronic disease, oropharyngeal dysphagia s/p G-tube, history of CVA (2012), neurogenic bladder s/p chronic suprapubic
catheter, DM type II, paroxysmal A-fib in the setting of sepsis (2018), history of MRSA, conjunctivitis, depression/anxiety, impaired vision, recurrent UTI/pyelonephritis, history of aspiration pneumonia, protein calorie malnutrition, ambulatory
dysfunction
Impression:
#Sepsis without shock due to UTI and pneumonia (aspiration suspected)
#Complicated UTI with history of suprapubic catheter
#Right sided PNA likely due to aspiration
#New onset A-fib with a history of paroxysmal A-fib in the setting of sepsis (2018)
#Acute�subacute impacted fracture of right humeral neck
#Chronic anemia (baseline Hb: 11�12.5g/dL)
#Hyperglycemia
#Quadriplegia s/p spinal infarct (2014) s/p colostomy/suprapubic catheter/PEG
#History of cardiopulmonary arrest due to sepsis (August 2021)
#Stage IV sacral decubitus ulcer s/p sacral resection with diverting colostomy
#Recurrent UTI/pyelonephritis
#History of aspiration pneumonia
#Chronic hypotension on midodrine
Plan:
Right sided multilobar pneumonia on chest x-ray 12/22/2023-possibly aspiration. Afebrile, resolved leukocytosis.
Seems to be responding to current antibiotics.
Afebrile
Mild leukocytosis possibly from steroids.
Repeat chest x-ray today: Right upper lobe infiltrate/right middle lobe infiltrate. Overall improved compared to prior. No lobar atelectasis noted
- Continue with antibiotics - currently on Zosyn (started AM of 12/21/2023) day #7
Will be completed on 12/27/2023.
- Follow-up infectious workup including blood cultures + urine cultures (both NGTD)
- Check sputum Cx (if patient can produce a decent sample)-unable to produce. Poor cough effort
- Legionella and S pneumonia urine antigens both negative
-MRSA screening negative/influenza negative
Continue secretion clearance interventions:
-Patient was transition to ipratropium/levalbuterol due to tachycardia. Continue [id number] for secretion clearance.
- Given worsening hypoxia, systemic steroids were started. --> Continue to wean dexamethasone 2 mg IV every 12. Transition to prednisone tomorrow 12/28/2023.
-Nasopharyngeal suctioning at least once or twice a day. Patient has difficulty expectorating. Quadriplegic/muscle weakness
-If intubated likely will need tracheotomy.
-
Speech modifications noted: WFL (within functional limits) to minimal oral/pharyngeal stage differences noted. No penetration, aspiration, or significant residue. Esophageal sweep unremarkable.
Diet has been adjusted.
-
Not usually on oxygen therapy.
Still complaining of increased work of breathing at rest.
Oxygen supplementation needs continue to fluctuate up to 10 L. Suspect some degree of atelectasis on top of his pneumonia.
Continue secretion clearance interventions as above.
-Patient has very poor cough effort, at risk for atelectasis.
-Acapella device as able.
- Incentive spirometer encouraged if patient able to use it-noted quadriplegia.
- Aspiration precautions and keep HOB >30-45�
-Avoid sedatives as able.
-P atrial fibrillation heart rate improved
- Eliquis ongoing
-Nebulizers adjusted-avoid beta agonist
- Orthopedic surgery-right proximal humerus fractures unknown age-possible metastatic disease. Bone scan recommended- conservative management.
- Urology consulted -suprapubic catheter
- DVT ppx: Eliquis
Not ready for discharge. Poor secretion clearance.
Continue with aggressive secretion clearance as above.
High risk situation

Data:
CXR 12/21/2023:
Chronic atelectasis of the left lower lobe.
Increased reticulonodular markings throughout the right lung, patchy distribution.
Subjective Data
-
Date of Service:
Date of Service: December 27, 2023
Chief Complaint: Pulmonary Follow Up (Pneumonia right side possibly aspiration/bronchospasm/hypoxemic respiratory failure)
Subjective:
Continues to have intermittent issues with secretion handling.
Poor cough effort due to quadriplegia.
Nasotracheal suctioning earlier today.
Review of Systems
Cardiopulmonary: Dyspnea (Mild at rest-patient is bedbound)
GI: Abdominal Pain (m) and Nausea (m)
Objective Data
Data Reviewed
Vital Signs / I&O / Oxygen:
Vital Signs
Temp Pulse Resp BP Pulse Ox
97.9 F 62 12 106/91 96
12/27/23 07:55 12/27/23 10:00 12/27/23 10:00 12/27/23 08:51 12/27/23 09:41
Intake and Output
12/26/23 12/27/23 12/28/23
06:59 06:59 06:59
Intake Total 1260 / 1260 620 / 620
Output Total 1505 / 1505 3300 / 3300
Balance -245 / -245 -2680 / -2680
SaO2 96
Nasal Cannula flow liters per 12
minute
Physical Exam
General: Respiratory Distress (negative), Sweats (negative) and Other (Appears uncomfortable although not in acute distress)
HEENT: Normocephalic and Anicteric
Cardiovascular: S1-S2 and Peripheral Edema (negative)
Respiratory: Wheeze (negative), Crackles (Bilateral throughout respiratory cycle), Rhonchi (Bilateral throughout respiratory cycle-somewhat improved) and Non-Labored Respirations
GI: Soft, Non Distended, Non Tender, Normal Bowel Sounds and Other (LLQ colostomy)
Neurology: Awake, Alert and Tremors (negative)
Skin: Warm, Dry and Jaundice (negative)
Labs/Micro/Reports
Lab Data
12/27/23 03:28
12/27/23 03:28
Microbiology
12/21/23 11:20 Blood/Venous Blood Culture - Final
No Growth - Final Report
12/21/23 11:17 Blood/Venous Blood Culture - Final
No Growth - Final Report
12/23/23 19:54 Urine Legionella Urinary Antigen - Final
Negative for Legionella pneumophila Serogroup 1 antigen.
A negative result does not rule out the possiblity of
Legionella infection due to other serogroups or species of
Legionella. Clinical correlation is recommended.
12/23/23 19:54 Urine Streptococcus pneumoniae Antigen (M - Final
Negative for Streptococcus pneumoniae antigen.
A negative result does not exclude infection with
Streptococcus pneumoniae. Clinical correlation is
recommended.
[2023-12-27] MEDS: APRESOLINE 5 MG IV ×2 (10:41→23:56)
[2023-12-27] MEDS: NOVOLOG FLEXPEN-LOW RESISTANCE 1 UNITS SC ×2 (10:42→12:31)
--- NOTE | 2023-12-27 11:34 | CM ---
Chart reviewed.
Patient is a resident at [facility].
PLAN:
[facility]: The ph for report [phone], fax [phone].
Plan contact patient/family prior to return to SNF.
Plan return to [facility] when medically ready.
[2023-12-27 12:35] LABS: Glucose - Point of Care 185 mg/dl (70-99)
--- NOTE | 2023-12-27 14:13 | PTCARENOTE ---
Patient reports blurry vision. Pt denies any pain or dry eyes. He reports he has never had it before. Vital signs stable. Dr. Villar made aware. Order for head CT.
[2023-12-27] MEDS: ProAmatine PO ×2 (16:33→21:06)
--- NOTE | 2023-12-27 16:48 | PTCARENOTE ---
Patient taken to and from CT with RN.
[2023-12-27 16:59] LABS: Glucose - Point of Care 276 mg/dl (70-99)
[2023-12-27] MEDS: NOVOLOG FLEXPEN-LOW RESISTANCE 3 UNITS SC (17:05)
[2023-12-27] MEDS: LIORESAL 40 MG PO (20:49)
[2023-12-27] MEDS: DECADRON 2 MG IV (20:50)
[2023-12-27 22:38] LABS: Glucose - Point of Care 316 mg/dl (70-99)
--- NOTE | 2023-12-27 22:55 | PTCARENOTE ---
Patients hs blood sugar 316. No coverage ordered. inbound call center representative provider made aware and ordered coverage.
[2023-12-27] MEDS: NOVOLOG FLEXPEN 4 UNITS SC (23:05)
[2023-12-28] VITALS (15 sets, daily range): BP systolic 83–180; BP diastolic 52–104
[2023-12-28] MEDS: XOPENEX 1.25 MG INHALANT SOLUTION INH ×3 (02:07→13:28)
--- NOTE | 2023-12-28 04:12 | PTCARENOTE ---
No acute events overnight. Remained on 4 liters . PRN breathing treatment given by respiratory.
[2023-12-28 04:15] LABS: % Basophils 0.2 % (0-2); % Immature Granulocytes 1.2 % (0-0.5); % Lymphocytes 3.3 % (20.5-51.1); % Monocytes 3.5 % (1.7-9.3); % Neutrophils 91.8 % (42.2-75.2); Absolute Immature Granulocytes 0.1 10^3/uL (0-0.05); Absolute Lymphocytes 0.3 10^3/uL (1.2-3.4); Absolute Monocytes 0.3 10^3/uL (0.1-0.6); Absolute Neutrophils 8.3 10^3/uL (1.4-6.5); Hematocrit 35.7 % (39.0-52.0); Hemoglobin 11.9 g/dL (13.0-18.0); Mean Corp Hgb Conc. 33.3 g/dL (33.0-37.0); Mean Corpuscular Hgb 28.6 pg (27.0-31.0); Mean Corpuscular Volume 85.8 fL (80.0-94.0); Mean Platelet Volume 9.2 fL (7.4-10.4); Nucleated Red Blood Cells % 0 % (-); Platelet Count 323 10^3/uL (130-400); Red Blood Cell Count 4.16 10^6/uL (4.70-6.10); Red Cell Dist. Width 15.1 % (11.5-14.5); White Blood Cell Count 9.1 10^3/uL (4.8-10.8)
[2023-12-28 04:36] LABS: Blood Urea Nitrogen 27 mg/dl (9-20); Calcium 8.5 mg/dl (8.4-10.2); Carbon Dioxide 25 mmol/L (22-30); Chloride 101 mmol/L (98-107); Estimated Creatinine Clearance 107 ml/min; Glucose 217 mg/dl (70-99); Magnesium 2.2 mg/dl (1.6-2.3); Potassium 4.2 mmol/L (3.5-5.1); Sodium 137 mmol/L (135-145); eGFR > 60.00
[2023-12-28] MEDS: ZOSYN 100 IV ×2 (05:29→11:36)
[2023-12-28] MEDS: ATROVENT NEBULES 0.5 MG INH (07:34)
--- NOTE | 2023-12-28 08:11 | W.PN.HOSP.TC ---
Addendum entered and electronically signed by Angela Villar MD 12/28/23 13:12:
total DC time 40 min
Original Note:
Today's Communication/Plan
-
see A/P
Assessment / Plan
Assessment / Plan
A/P:
# Acute on chronic hypoxic respiratory failure
confirmed with , initially records indicated 4L baseline but she states NO baseline O2 needs.
Weaned O2 to 3L NC, cont to wean as tolerated
# Severe Sepsis (fever, leucocytosis, tachycardia) with hypotension in setting of Chronic hypotension secondary to autonomic dysfunction/polypharmacy
# Aspiration PNA
s/p IVF per sepsis protocol
continue chronic midodrine with parameters
continue/complete empiric Zosyn while in the hospital (he was on Azithromycin at SNF for pneumonia)
repeat CXR 12/21: RAPID INTERVAL INCREASE in LARGE AIRSPACE CONSOLIDATIONS in the right upper lobe, right middle lobe, right lower lobe, and left lower lobe since 12/21/2023. Diagnostic possibilities are (1) acute aspiration pneumonitis or (2) severe
pneumonia.
repeat CXR 12/26 showed improvement: opacification of the right middle lobe again seen, opacification in the mid and lower right chest improved likely representing resolving pneumonia.
weaning IV steroid Decadron (was started for wheezing), cont prednisone taper outpt
Added Mucinex
Cultures negative
s/p VSE 12/24, recc to cont mince moist diet
prn nebs
pulmonary on board
# CAUTI with suprapubic catheter POA
continue Abx as above
s/p SPC exchange 12/22; appreciate Urology
# Acute to subacute impacted fracture of the right humeral neck
lives in facility, per , he suffered a shoulder fracture by hitting his arm against a metal bar.
Shoulder X-ray noted healing subacute right humeral neck fracture but possible blastic osseous metastatic disease.
d/w pt and about finding, they prefer to NOT further investigate the blastic bone lesions. Bone scan cancelled.
Informed pt and that if they change their mind, they can always follow up with PCP / outpt oncologist for further eval.
PSA was sent, follow up
Orthopedics consulted
# paroxysmal A fib
noted on 12/23
started with Cardizem, adjust to 30 mg TID with holding parameter
Started Eliquis 5 mg BID, cont
Changed Albuterol neb to levalbuterol neb
# Anemia of chronic disease
hemoglobin stable, today at 11.9
No active bleeding
Continue to monitor
# Chronic urinary retention
# Muscle Spasms due to Quadriplegia
continue Tizanidine
continue gabapentin
continue baclofen
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
# Hx of Bowel resection
Colostomy care
s/p VSE 12/24, recc to cont mince moist diet
# Anxiety/Depression
RETREADER Lorazepam was changed to PM dosing (to avoid daytime lethargy), stopped standing HS dose due to likely causing overnight desaturation.
D/w , will hold Ativan going forward.
continue Celexa
# Chronic wounds - all present on arrival
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
Mild discolored red rash like skin (eczema appearing too) on sacral/buttocks/ischium.
Small dry scabs Le's/ankle/foot/R thigh suspect r/t his poor skin condition (eczema?), fragile skin.
L posterior hip dull slow to corbin red skin (stage 1 pressure injury).
Bilateral heels with discolored dull red scars.
Abdominal MASD r/t drainage from an old feeding tube removal site that never fully closed.
follow wound care recs
# Midodrine induced hypertension
prn Hydralazine with parameters placed
�
DVT prophylaxis: SC heparin
Code: DNR/DNI
DW RN
updated on the phone
total time spent 51 min
Anticipated Discharge: Today
Subjective/Interval History
-
Date of Service: December 28, 2023
Objective Data
-
Labs:
Laboratory Results
12/28/23
03:54
WBC 9.1
Hgb 11.9 L
Hct 35.7 L
Plt Count 323
Sodium 137
Potassium 4.2
Chloride 101
Carbon Dioxide 25
BUN 27 H
Creatinine 0.4 L
Glucose 217 H
Calcium 8.5
Vital Signs:
Vital Signs
Temp Pulse Resp BP Pulse Ox
36.7 C 72 18 88/55 94
12/28/23 04:35 12/28/23 07:36 12/28/23 07:36 12/28/23 06:36 12/28/23 07:36
I&O
12/27/23 12/28/23 12/29/23
06:59 06:59 06:59
Intake Total 720 / 720 1360 / 1360
Output Total 3300 / 3300 2400 / 2400
Balance -2580 / -2580 -1040 / -1040
Review of Systems
-
History Source: Patient
All other systems: Reviewed and negative
Physical Exam
-
General: Well Developed, Comfortable, Respiratory Distress and Appears Chronically Ill
HEENT: Normocephalic, Atraumatic and Oxygen (3L NC)
Respiratory: Non Labored Respirations; Negative Accessory Resp Muscle Use
Cardiac: Regular Rhythm and S1/S2
Neuro: Awake, Alert and Other (bedbound, contractures upper arms)
Psych: Calm and Intact Judgement/Insight (somewhat)
Data Reviewed
-
Diagnostic Radiology: Image personally visualized and interpreted and Report Reviewed by me
Labs: Labs Reviewed by me
[2023-12-28 08:22] LABS: Glucose - Point of Care 197 mg/dl (70-99)
[2023-12-28] MEDS: CARDIZEM CD PO (08:28)
[2023-12-28] MEDS: NOVOLOG FLEXPEN-LOW RESISTANCE 1 UNITS SC ×2 (09:12→12:02)
[2023-12-28] MEDS: CELEXA 10 MG PO (09:14)
[2023-12-28] MEDS: DESENEX/MITRAZOL/ZEASORB 1 APPLIC TOPICAL (09:14)
[2023-12-28] MEDS: ELIQUIS 5 MG PO (09:16)
[2023-12-28] MEDS: MUCINEX 1200 MG PO (09:17)
[2023-12-28] MEDS: LIORESAL 20 MG PO (09:17)
[2023-12-28] MEDS: NEURONTIN 800 MG PO ×2 (09:18→15:06)
[2023-12-28] MEDS: ZANAFLEX 8 MG PO ×2 (09:19→12:57)
[2023-12-28] MEDS: ProAmatine 5 MG PO (09:19)
[2023-12-28] MEDS: DECADRON 2 MG IV (09:20)
--- NOTE | 2023-12-28 10:05 | W.PN.PUL3 ---
Today's Communication / Plan
-
Continue oxygen supplementation
Nebulizer
Nasopharyngeal suctioning as able
Head of the bed elevation/aspiration precaution
Avoid sedatives
Completed course of ABx with Zosyn during hospitalization - disocntinued today
Patient being prepared for discharge to [facility] today - pulmonary service will now sign off. Please reconsult if there are any additional questions/concerns, or if patient's respiratory status deteriorates.
Assessment
-
Assessment: 63-year-old male with a past medical history of quadriplegia s/p spinal infarct (2014) s/p colostomy/suprapubic catheter/PEG, history of cardiopulmonary arrest due to sepsis (08/2021), stage IV sacral decubitus ulcer s/p resection with
diverting colostomy, personal history of COVID-19 (01/2021), chronic hypotension on midodrine, anemia of chronic disease, oropharyngeal dysphagia s/p G-tube, history of CVA (2012), neurogenic bladder s/p chronic suprapubic catheter, paroxysmal A-fib
in the setting of sepsis (2018), DM type II, history of MRSA, depression/anxiety and history of aspiration ammonia who presents with fevers, low oxygen and tachycardia. Patient reportedly was diagnosed with pneumonia 2 days ago and prescribed
Zithromax but symptoms persisted. Patient has been more lethargic lately and weak. In the ER he was febrile to 100.5 �F, pulse rate 104, breathing at 14 breaths/minute, BP was low at 60/43 and saturating 94% on 2 L/min nasal cannula. Labs showed
leukocytosis to 15.3, anemia to 11.7, with urinalysis positive for UTI with positive nitrites, +2 leukocyte esterase and 11�15 urine WBC with many urine bacteria. COVID antigen was negative. Blood cultures + urine cultures were collected. CXR
obtained showing chronic atelectasis of the left lower lobe with increased reticulonodular markings in the right lung. IVF with NS 0.9% x 2 L + Zosyn was given to him in the ER. He was admitted to the IMU for further care and pulmonary service
consulted for additional management/recommendations.
Chronic conditions [employer]: Quadriplegia from spinal infarct (2014) s/p colostomy/suprapubic catheter + G-tube, history of cardiopulmonary arrest due to sepsis (08/2021), sacral decubitus stage IV ulcer s/p sacral resection with diverting colostomy,
recurrent hospitalizations for septic shock, personal history of COVID-19 (01/10/2021), chronic hypotension on midodrine, anemia of chronic disease, oropharyngeal dysphagia s/p G-tube, history of CVA (2012), neurogenic bladder s/p chronic suprapubic
catheter, DM type II, paroxysmal A-fib in the setting of sepsis (2018), history of MRSA, conjunctivitis, depression/anxiety, impaired vision, recurrent UTI/pyelonephritis, history of aspiration pneumonia, protein calorie malnutrition, ambulatory
dysfunction
Impression:
#Sepsis without shock due to UTI and pneumonia (aspiration suspected)
#Complicated UTI with history of suprapubic catheter
#Right sided PNA likely due to aspiration
#New onset A-fib with a history of paroxysmal A-fib in the setting of sepsis (2018)
#Acute�subacute impacted fracture of right humeral neck
#Chronic anemia (baseline Hb: 11�12.5g/dL)
#Hyperglycemia
#Quadriplegia s/p spinal infarct (2014) s/p colostomy/suprapubic catheter/PEG
#History of cardiopulmonary arrest due to sepsis (August 2021)
#Stage IV sacral decubitus ulcer s/p sacral resection with diverting colostomy
#Recurrent UTI/pyelonephritis
#History of aspiration pneumonia
#Chronic hypotension on midodrine
Plan:
Right sided multilobar pneumonia on chest x-ray 12/22/2023-possibly aspiration. Afebrile, resolved leukocytosis.
Seems to be responding to current antibiotics.
Mild leukocytosis possibly from steroids, although WBC normal today
Repeat chest x-ray today: Right upper lobe infiltrate/right middle lobe infiltrate. Overall much improved especially in the right lower lobe compared to prior
- Continue with antibiotics - currently on Zosyn (started AM of 12/21/2023)
Will be completed on 12/28/2023
- Follow-up infectious workup including blood cultures + urine cultures (both NGTD)
- Check sputum Cx (if patient can produce a decent sample)-unable to produce. Poor cough effort
- Legionella and S pneumonia urine antigens both negative
-MRSA screening negative/influenza negative
Continue secretion clearance interventions:
-Patient was transitioned to ipratropium/levalbuterol due to tachycardia. Continue [id number] for secretion clearance.
- Given worsening hypoxia, systemic steroids were started. --> Continue to wean dexamethasone 2 mg IV every 12. Transition to prednisone today 12/28/2023 with taper by 10mg every 4th day until off
-Nasopharyngeal suctioning at least once or twice a day. Patient has difficulty expectorating. Quadriplegic/muscle weakness
-If he is ever intubated, he would likely will need tracheotomy.
-
Speech modifications noted: WFL (within functional limits) to minimal oral/pharyngeal stage differences noted. No penetration, aspiration, or significant residue. Esophageal sweep unremarkable.
Diet has been adjusted. Recommended minced/moist solids with thin liquids
-
Not usually on oxygen therapy.
Still complaining of increased work of breathing at rest.
Oxygen supplementation needs continue to fluctuate up to 10 L - now on 3L/min. Suspect some degree of atelectasis on top of his pneumonia.
Continue secretion clearance interventions as above.
-Patient has very poor cough effort, at risk for atelectasis.
-Acapella device as able.
- Incentive spirometer encouraged if patient able to use it-noted quadriplegia.
- Aspiration precautions and keep HOB >30-45�
-Avoid sedatives as able.
-P atrial fibrillation heart rate improved
- Eliquis ongoing
- Nebulizers adjusted-albuterol changed to xopenex
- Replete K>4, Mg>2
- Orthopedic surgery-right proximal humerus fractures unknown age-possible metastatic disease. Bone scan recommended- conservative management.
- Urology consulted -suprapubic catheter exchanged this admission
- DVT ppx: Eliquis
Patient being prepared for discharge to [facility] today.
Pulmonary service will now sign off. Thank you for allowing us to be involved in the care of this patient. Please reconsult if there are any additional questions/concerns, or if patient's respiratory status deteriorates.

Data:
CXR 12/21/2023:
Chronic atelectasis of the left lower lobe.
Increased reticulonodular markings throughout the right lung, patchy distribution.
CXR 12/27/2023:
Opacification of the right middle lobe again seen now with some volume loss most likely representing combination of pneumonia and atelectasis.
Opacification in the mid and lower right chest improved likely representing resolving pneumonia.
Patient's bilateral upper extremities significantly obscured the mid to lower lungs bilaterally.
Age-indeterminate fracture of the proximal right humerus.
Total time spent today was 35 minutes for this encounter. Time includes reviewing laboratory test/imaging results, reviewing pertinent medical records, obtaining and reviewing medical history, performing an appropriate exam, ordering medications,
tests and procedures. Time also includes documentation of this encounter, coordinating patient care and communicating with other healthcare professionals. Total time does not include separately billed tests performed on this date of service.
Subjective Data
-
Date of Service:
Date of Service: December 28, 2023
Chief Complaint: Pulmonary Follow Up (Pneumonia right side possibly aspiration/bronchospasm/hypoxemic respiratory failure)
Subjective:
Patient seen and evaluated today at bedside. No events reported from overnight. Patient awaiting discharge back to [facility] nursing facility today. Patient's breathing is much improved. Currently on 3 L/min nasal cannula saturating
97%. No chest pain, DEL REAL, abdominal pain, fevers or chills.
Review of Systems
General: Other (Negative unless mentioned above)
Objective Data
Data Reviewed
Vital Signs / I&O / Oxygen:
Vital Signs
Temp Pulse Resp BP Pulse Ox
98.1 F 71 18 90/57 94
12/28/23 04:35 12/28/23 09:19 12/28/23 07:36 12/28/23 09:19 12/28/23 07:36
Intake and Output
12/27/23 12/28/23 12/29/23
06:59 06:59 06:59
Intake Total 720 / 720 1360 / 1360
Output Total 3300 / 3300 2400 / 2400
Balance -2580 / -2580 -1040 / -1040
SaO2 94
Nasal Cannula flow liters per 3
minute
Physical Exam
General: Respiratory Distress (negative), Comfortable and Sweats (negative)
HEENT: Normocephalic and Anicteric
Cardiovascular: S1-S2 and Peripheral Edema (negative)
Respiratory: Wheeze (negative), Crackles (Bilateral throughout respiratory cycle), Rhonchi (Bilateral throughout respiratory cycle-improved) and Non-Labored Respirations
GI: Soft, Non Distended, Non Tender, Normal Bowel Sounds and Other (LLQ colostomy)
Neurology: Awake, Alert and Tremors (negative)
Skin: Warm, Dry and Jaundice (negative)
Labs/Micro/Reports
Lab Data
12/28/23 03:54
12/28/23 03:54
Microbiology
12/21/23 11:20 Blood/Venous Blood Culture - Final
No Growth - Final Report
12/21/23 11:17 Blood/Venous Blood Culture - Final
No Growth - Final Report
[2023-12-28 10:34] LABS: PSA Total 2.6 ng/mL (0.0-4.0)
[2023-12-28 12:07] LABS: Glucose - Point of Care 190 mg/dl (70-99)
--- NOTE | 2023-12-28 12:38 | W.DCSUMMARY ---
Discharge Summary
Discharge Data
Date of Admission: 12/21/23
Date of Discharge: 12/28/23
-
Pending Results: No
Hospital Course
Principal Diagnosis:
Sepsis due to aspiration pneumonia
Catheter associated urinary tract infection (CAUTI) with suprapubic catheter
Paroxysmal atrial fibrillation
Incidental finding of acute to subacute impacted fracture of the right humeral neck
Chronic Diagnoses:�
Anemia of chronic disease
Chronic urinary retention
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
Muscle spasms due to quadriplegia, on Tizanidine, gabapentin, baclofen
History of bowel resection with colostomy
Anxiety/Depression
Chronic wounds
Consultations:�
Orthopedic
Pulmonary
Urology
Procedures:�
Suprapubic catheter exchanged on 12/23/2023 urology.
Clinical course:�
This is a 63-year-old male, with past medical history as stated above, who presented with hypotension and hypoxia.
Problem 1:
Acute on chronic hypoxic respiratory failure.
Apparently he has not required oxygen support at his intermediate even though intermediate record indicated baseline at 4 L nasal cannula.
The patient was weaned from 15 L mid flow to 3 L nasal cannula on discharge. He can continue to wean O2 as tolerated at the intermediate.
Of note, his prior to admission Ativan was discontinued; it was felt that the Ativan given at nighttime contributed/exacerbated to his nocturnal hypoxia.
Problem 2:
Severe Sepsis due to aspiration pneumonia.
He completed antibiotic treatment with Zosyn while in the hospital.
His repeat chest x-ray from 12/27/2023 noted improvement: opacification of the right middle lobe again seen, opacification in the mid and lower right chest improved likely representing resolving pneumonia.
He was treated with IV Decadron for wheezing, and he can continue with prednisone taper outpatient.
He can continue minced moist diet per speech eval for his chronic dysphagia.
Problem 3:
CAUTI with suprapubic catheter.
His suprapubic catheter was exchanged on 12/23/2023 by urology.
Problem 4:
Acute to subacute impacted fracture of the right humeral neck- incidental finding.
According to his , he suffered a shoulder fracture by hitting his arm against a metal bar.
His x-ray showed healing subacute right humeral neck fracture but possible blastic osseous metastatic disease.
This blastic osseous metastatic disease was discussed with the patient and his , they understand that this could be due to an underlying metastatic disease, and choose to not pursue further investigation.
They have been informed that if they change their mind, they can always follow-up with his PCP or outpatient oncologist for further evaluation.
His PSA was sent, and they can follow the result up with his PCP outpatient.
Problem 5:
Paroxysmal atrial fibrillation, noted on 12/23.
The patient was started with Cardizem, and he can continue 30 mg 3 times daily with holding parameter outpatient..
He was also started with Eliquis 5 mg twice daily which he can continue going forward.
As for the rest of his medical problems, they were stable during his hospital stay.
Discharge Plan
-
Patient Disposition: Shelter/SNF
Discharge Diagnosis/Procedures: Aspiration pneumonia;
Acute hypoxic respiratory failure;
Catheter associated UTI with suprapubic catheter (exchanged this admission on 12/22);
Acute to subacute impacted fracture of the right humeral neck with blastic lesion noted on XR;
Paroxysmal Atrial fibrillation
Condition: Fair
Diet: As tolerated
Additional Diets: mince moist diet
Wound Care: Wound Care Instructions:
L ischial ulcer-clean with saline, miconazole powder prn yeasty periwound skin, alginate, silicone border foam, change q 3 days and prn loosened dressing.
Abdominal old g tube site opening-clean with saline, miconazole powder and zinc barrier ointment (i.e. Calazime) to irritated skin, aliginate, ABD pad, secure with minimal silicone tape. Change daily and prn drainage.
Miconazole powder to affected areas bid.
Air mattress, turning schedule.
Soft heel relief boots as tolerated; alternate with pillow/air chair cushion to off load heels.
Follow up with wound care attendant.
Activity Restrictions/Additional Instructions:
Follow up PSA result with your PCP
Wean O2 as tolerated at SNF
Referrals:
Mansoor Aguilar MD [Family Provider] - in less than 1 week
Additional Discharge Medication Instructions: You were started with Cardizem and Eliquis for your Paroxysmal Atrial fibrillation
Stop lorazepam as it likely caused your overnight desaturation.
Prescriptions:
New
diltiazem HCl 30 mg Tablet
30 mg PO TID Qty: 90 0RF
Rx Instructions:
Hold for SBP < 110
Eliquis 5 mg Tablet
5 mg PO BID Qty: 60 0RF
guaifenesin 600 mg Tablet Extended Release 12hr
1,200 mg PO Q12 Qty: 7 0RF
prednisone 10 mg Tablet
See Rx Instructions .ROUTE .COMPLEX Qty: 30 0RF
Rx Instructions:
Take By Mouth:
40 mg daily x3 days, 30 mg daily x3 days,
20 mg daily x3 days, 10 mg daily x3 days.
Continued
acetaminophen 325 MG tablet
650 mg PO Q6HPRN PRN (Reason: mild pain/temp>100F)
polyethylene glycol 3350 17 GRAMS powder in packet
17 grams PO HSPRN PRN (Reason: constipation)
miconazole nitrate [Zeasorb AF] 71 GM powder
1 applic topical BID
citalopram 10 mg Tablet
10 mg PO DAILY
tizanidine 4 mg tablet
8 mg PO QID
baclofen 20 mg tablet
40 mg PO HS
loperamide 2 mg Capsule
2 mg PO Q8HPRN PRN (Reason: diarrhea )
ipratropium-albuterol 0.5 mg-3 mg(2.5 mg base)/3 mL Solution For Nebulization
3 ml INHALATION R QID
ipratropium-albuterol 0.5 mg-3 mg(2.5 mg base)/3 mL Solution For Nebulization
3 ml INHALATION R Q4HPRN PRN (Reason: SOB, wheezing)
ketoconazole 2 % Shampoo
1 applic TOPICAL WE
lidocaine 4 % Adhesive Patch,Medicated
1 patch TOPICAL DAILYPRN PRN (Reason: r proximal humerus)
baclofen 20 mg Tablet
20 mg PO BID
gabapentin 800 mg Tablet
800 mg PO TID
ibuprofen [Advil] 200 mg Tablet
600 mg PO Q6HPRN PRN (Reason: high temp/mild pain)
magnesium citrate Solution
150 ml PO BIDPRN PRN (Reason: if no bm aftr miralax)
midodrine 2.5 mg Tablet
2.5 mg PO Q4HPRN PRN (Reason: sbp less than 80)
nystatin 100,000 unit/gram Powder
1 applic TOPICAL DAILYPRN PRN (Reason: peg tub- removal site)
nystatin 100,000 unit/gram Powder
1 applic TOPICAL DAILY
Rx Instructions:
peg tube-removal site
carboxymethylcellulose sodium 1 % Drops
1 drp BOTH EYES Q6HPRN PRN (Reason: dry eyes)
midodrine 5 mg tablet
5 mg PO TID
Discontinued
lorazepam 0.5 mg tablet
0.5 mg PO DAILY Qty: 3 0RF
azithromycin 250 mg Tablet
250 mg PO HS
Discharge Orders:
Discharge Patient (As Directed); Ordered 12/28/23
Ordered By: Angela Villar
Discharge Date and Time
Print Language: LAO
[2023-12-28] MEDS: ATROVENT NEBULES INH (13:28)
--- NOTE | 2023-12-28 14:27 | PTCARENOTE ---
Attempted to call report to [facility] with phone number given from , no answer on multiple extensions tried from their call menu. RN called main number and federal appellate clerk reported their phone system is down. Knitter [employer] advised the nurse will have to call
me, number given for IMU.
[2023-12-28] MEDS: CARDIZEM 30 MG PO (15:06)
[2023-12-28] MEDS: APRESOLINE 5 MG IV (15:07)
[2023-12-28] MEDS: ProAmatine PO (15:08)
--- NOTE | 2023-12-28 17:00 | CM ---
Patient from [facility] with Hx quadriplegia, colostomy with Dx Acute on chronic hypoxic respiratory failure, Severe Sepsis. O2 3L.
Spoke with [facility]; they are able to accept the patient back today. The for report [phone], fax [phone].
Met with patient and spoke with patient's Kasia; they agree with d/c today back to [facility]. IMM completed with and copy sent to her email at [email or web address].
Plan return to [facility] today by ambulance.
== END 2023-12-28 16:05 | DRG 698 ==
LOC: IMU 13:39
PROVIDERS: Internal Medicine; Registered Nurse; ADMITTING PHYSICIAN Internal Medicine; ATTENDING PHYSICIAN Internal Medicine; CONSULT PHYSICIAN Internal Medicine Critical Care Medicine; CONSULT PHYSICIAN Orthopaedic Surgery; CONSULT PHYSICIAN Specialist; EMERGENCY PHYSICIAN Student in an Organized Health Care Education/Training Program; FAMILY PHYSICIAN Family Medicine
PROC: 0T2BX0Z Change Drainage Device in Bladder, External Approach (ICD-10-PCS; 2023-12-23)
DX: T83.518A Infection and inflammatory reaction due to other urinary catheter, initial encounter (principal); A41.9 Sepsis, unspecified organism; G82.50 Quadriplegia, unspecified; L89.154 Pressure ulcer of sacral region, stage 4; J96.21 Acute and chronic respiratory failure with hypoxia; J69.0 Pneumonitis due to inhalation of food and vomit; R65.20 Severe sepsis without septic shock; N12 Tubulo-interstitial nephritis, not specified as acute or chronic; Z66 Do not resuscitate; J44.0 Chronic obstructive pulmonary disease with (acute) lower respiratory infection; J98.11 Atelectasis; E46 Unspecified protein-calorie malnutrition; S42.211A Unspecified displaced fracture of surgical neck of right humerus, initial encounter for closed fracture; D63.8 Anemia in other chronic diseases classified elsewhere; F41.9 Anxiety disorder, unspecified; F32.A Depression, unspecified; L89.221 Pressure ulcer of left hip, stage 1; N31.9 Neuromuscular dysfunction of bladder, unspecified; R13.12 Dysphagia, oropharyngeal phase; I48.0 Paroxysmal atrial fibrillation; I95.89 Other hypotension; E11.65 Type 2 diabetes mellitus with hyperglycemia; H54.7 Unspecified visual loss; R33.8 Other retention of urine; L30.9 Dermatitis, unspecified; I10 Essential (primary) hypertension; T44.4X5A Adverse effect of predominantly alpha-adrenoreceptor agonists, initial encounter; W22.8XXA Striking against or struck by other objects, initial encounter; M62.838 Other muscle spasm; Z93.1 Gastrostomy status; Z11.52 Encounter for screening for COVID-19; Y84.6 Urinary catheterization as the cause of abnormal reaction of the patient, or of later complication, without mention of misadventure at the time of the procedure; I69.865 Other paralytic syndrome following other cerebrovascular disease, bilateral; Z68.22 Body mass index [BMI] 22.0-22.9, adult; Z93.3 Colostomy status; Z98.1 Arthrodesis status; Z86.74 Personal history of sudden cardiac arrest; Z93.59 Other cystostomy status; Z91.040 Latex allergy status; Z88.1 Allergy status to other antibiotic agents; Z79.899 Other long term (current) drug therapy; Z86.14 Personal history of Methicillin resistant Staphylococcus aureus infection; Z86.16 Personal history of COVID-19; Z74.01 Bed confinement status
CPT/HCPCS: 70450; 71045; 73030; 74230; 80048; 80053; 81003; 81015; 82805; 82962; 83605; 83735; 84153; 84154; 85025; 85027; 87040; 87070; 87086; 87449; 87502; 87811; 87899; 92526; 92610; 92611; 93005; 94640; 94668; 96361; 96365; 99291

== ENCOUNTER 2023-12-31 10:27 | Inpatient (IN) | payer MEDICARE, OTHER, SELFPAY ==
[2023-12-31] VITALS (18 sets, daily range): BP systolic 70–160; BP diastolic 50–138; BMI 23.1
--- NOTE | 2023-12-31 07:31 | ED.GENMED ---
History of Present Illness
<Marry Luna PA-C - Last Filed: 12/31/23 09:57>
General
Chief Complaint: Breathing Problem
Source: patient and ambulance crew
Exam Limitations: none
Time Seen by Provider: 12/31/23 07:05
Nursing documentation reviewed up to this point in time: agreed with
History of Present Illness
History of Present Illness:
pt is a 63 y/o M with h/o C4 level sinal infarction causing quadraplegia
chronic dysphagia, previously PEG but after speech eval recently, allowed to have minced moist diet
recently discharged for hypotensin/hypoxia due to sepsis from [facility] admitted 12-20 to 12-27
was on zosyn while admitted but d/c
Past History
<STANFORD Hodges Last Filed: 12/31/23 09:57>
Past History
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
ED Past Surgical History: Bowel resection (With colostomy) and Urological (Suprapubic Moctezuma catheter, nephrostomy)
Social History
Tobacco: Non-smoker
Alcohol: None
Drug: None
Personal:
Living: correction
Employment: Not employed
Family History
Family History: Other (Reviewed and noncontributory)
Review of Systems
<Marry Luna PA-C - Last Filed: 12/31/23 09:57>
Review of Systems
Allergies reviewed?: Yes
All Other Systems: Not applicable
Phy Exam
<Marry Luna PA-C - Last Filed: 12/31/23 09:57>
Physical Exam
Physical Exam:
GENERAL: Alert , in no apparent distress
HEAD: NCAT
EYE: pupils equal and reactive, no nystagmus, no photophobia
NECK: Supple,full rom, nontender
ENT: o/p clr, mmm.
CARDIAC: Regular rate and rhythm . no edema
LUNGS: no resp distress
+ end exp wheezes
rhonchi throughout
ABDOMEN: Soft, without focal tenderness, no r/g, no cvat
+PEG SITE NO TUBE
NEUROLOGICAL: Alert and orientedx 4, spastic quadraplegia
SKIN: Warm and dry, skin intact.
MUSCULOSKELETAL: No edema, well perfused.
PSYCH: Normal and appropriate interaction.
Scores
<Marry Luna PA-C - Last Filed: 12/31/23 09:57>
Heart Failure Risk
Heart Failure Risk Score: Not Applicable
Course
<Marry Luna PA-C - Last Filed: 12/31/23 09:57>
Orders/Labs/Results
Orders:
Orders
12/31/23 07:13
EKG [Electrocardiogram (*1)] Urgent
Reason for Study: Shortness of Breath
Portable Chest Xray [CR Chest Portable - 1 View] Urgent
Comment:
Reason For Exam: short of breath
Reason Study Needs to be Portable: Patient Unstable
12/31/23 07:14
EKG- Treatment ONCE
12/31/23 07:25
Ipratropium/Albuterol Sulfate [Duoneb] 3 ml INH R NOW ONE
12/31/23 08:19
COVID-19 Antigen Urgent
Source: Nasal Swab
12/31/23 08:38
Complete Blood Count/With Diff Urgent
Comprehensive Metabolic Panel Urgent
NT-proBNP Urgent
Prothrombin Time Urgent
Troponin I Urgent
12/31/23 08:55
Piperacillin/Tazo 3.375 Gram [Zosyn] 3.375 gram in 50 ml IV NOW
12/31/23 09:33
Procalcitonin Urgent
PCT Algorithmm Indication: Respiratory
Abnormal Lab Results
12/31/23
08:38
WBC 20.4 H 10^3/uL
(4.8-10.8)
RBC 4.45 L 10^6/uL
(4.70-6.10)
Hgb 12.5 L g/dL
(13.0-18.0)
MCHC 32.0 L g/dL
(33.0-37.0)
RDW 15.8 H %
(11.5-14.5)
Abs Immat Gran (auto) 0.2 H 10^3/uL
(0-0.05)
Absolute Neuts (auto) 18.5 H 10^3/uL
(1.4-6.5)
Absolute Lymphs (auto) 0.9 L 10^3/uL
(1.2-3.4)
Absolute Monos (auto) 0.7 H 10^3/uL
(0.1-0.6)
Immature Gran % 0.9 H %
(0-0.5)
Neutrophils % 90.5 H %
(42.2-75.2)
Lymphocytes % 4.3 L %
(20.5-51.1)
PT 16.4 H Sec
(11.4-14.6)
Creatinine 0.4 L mg/dL
(0.7-1.3)
Glucose 121 H mg/dl
(70-99)
12/31/23 08:38
12/31/23 08:38
Vital Signs
Initial and Last Documented VS:
Initial Vital Signs
BP
138/83
12/31/23 07:15
Last Documented Vital Signs
Temp Pulse Resp BP Pulse Ox
98.7 F 66 15 131/79 94
12/31/23 07:20 12/31/23 08:15 12/31/23 08:15 12/31/23 08:00 12/31/23 09:08
<Alex Stroud, DO - Last Filed: 12/31/23 08:39>
Orders/Labs/Results
Orders:
Orders
12/31/23 07:13
EKG [Electrocardiogram (*1)] Urgent
Reason for Study: Shortness of Breath
Portable Chest Xray [CR Chest Portable - 1 View] Urgent
Comment:
Reason For Exam: short of breath
Reason Study Needs to be Portable: Patient Unstable
12/31/23 07:14
EKG- Treatment ONCE
12/31/23 07:25
Ipratropium/Albuterol Sulfate [Duoneb] 3 ml INH R NOW ONE
12/31/23 08:19
COVID-19 Antigen Urgent
Source: Nasal Swab
12/31/23 08:38
Complete Blood Count/With Diff Urgent
Comprehensive Metabolic Panel Urgent
NT-proBNP Urgent
Prothrombin Time Urgent
Troponin I Urgent
12/31/23 08:55
Piperacillin/Tazo 3.375 Gram [Zosyn] 3.375 gram in 50 ml IV NOW
12/31/23 09:33
Procalcitonin Urgent
PCT Algorithmm Indication: Respiratory
Abnormal Lab Results
12/31/23
08:38
WBC 20.4 H 10^3/uL
(4.8-10.8)
RBC 4.45 L 10^6/uL
(4.70-6.10)
Hgb 12.5 L g/dL
(13.0-18.0)
MCHC 32.0 L g/dL
(33.0-37.0)
RDW 15.8 H %
(11.5-14.5)
Abs Immat Gran (auto) 0.2 H 10^3/uL
(0-0.05)
Absolute Neuts (auto) 18.5 H 10^3/uL
(1.4-6.5)
Absolute Lymphs (auto) 0.9 L 10^3/uL
(1.2-3.4)
Absolute Monos (auto) 0.7 H 10^3/uL
(0.1-0.6)
Immature Gran % 0.9 H %
(0-0.5)
Neutrophils % 90.5 H %
(42.2-75.2)
Lymphocytes % 4.3 L %
(20.5-51.1)
PT 16.4 H Sec
(11.4-14.6)
Creatinine 0.4 L mg/dL
(0.7-1.3)
Glucose 121 H mg/dl
(70-99)
12/31/23 08:38
12/31/23 08:38
Vital Signs
Initial and Last Documented VS:
Initial Vital Signs
BP
138/83
12/31/23 07:15
Last Documented Vital Signs
Temp Pulse Resp BP Pulse Ox
98.7 F 66 15 131/79 94
12/31/23 07:20 12/31/23 08:15 12/31/23 08:15 12/31/23 08:00 12/31/23 09:08
Procedures
<Alex Stroud DO - Last Filed: 12/31/23 08:39>
IV Access
Indication: RN unable to obtain and Physician skill needed
Performed by:: Alex Stroud DO
Site:: Right bicep
Gauge:: 20
Ultrasound Guidance: Yes
<Marry Luna PA-C - Last Filed: 12/31/23 09:57>
MDM/Problems Addressed
Differential Diagnosis Includes:
hypoxia, pna,
MDM/Problems Addressed:
63-year-old male with a history of C4 quadriplegia secondary to spinal cord infarction in 2015, chronic dysphagia previously requiring PEG which was recently removed, recent hospitalization for pneumonia in the right middle lobe, discharged 2 days
ago without antibiotics who presents after nursing staff at [facility] thought he was in respiratory distress. They did not check a pulse ox but he sounded 'junky' but did not give breathing treatment. Apparently for EMS patient was hypotensive
briefly and hypoxic in the 80s. Patient had been hospitalized last week and was using 15 L and weaned down to 2 L it seems like on discharge 2 days ago. Patient initially says he had not been wearing oxygen the last 2 days but then admitted that
he has had 2 L via nasal cannula. He does not recall feeling short of breath this morning but has been coughing a lot. He says he cannot get his secretions up because of his quadriplegia. They have not been doing any pulmonary toilet therapy at
[facility]. Patient has not had any known fever.
On exam on arrival on room air the patient was 85%. He was still 88% on 4 L, wheezing, rhonchorous. He was placed on mid flow humidified oxygen and is doing much better with a sat of 95%. He does have some end expiratory wheezes, we will treat
with a DuoNeb. His chest x-ray does not look significantly changed with this right middle lobe infiltrate. However his white count is now up to 20,000 with a left shift. I will empirically place will admit for pneumonia
appreciate rads read with new BEL infiltrate
<Marry Luna PA-C - Last Filed: 12/31/23 09:57>
*Critical Care Note
Total Time (30-74mins, 75-104mins- exclusive of procedures): Not Applicable
ED Attending Note
<Marry Luna PA-C - Last Filed: 12/31/23 09:57>
-
Portions of this chart may have been created with voice recognition software.� Occasional wrong word or��sound alike� substitutions may have occurred due to the inherent limitations of voice recognition software.
<Alex Stroud, DO - Last Filed: 12/31/23 08:39>
ED Attending Note
Patient seen and examined by attending physician: Yes
I performed the substantive portion of visit, reviewed & personally made and approve the management plan that is documented in note by myself or ZORA.: Yes
ED Attending Note:
I have seen and evaluated the patient with a [id number] encounter. I have spoken to the advance practicer provider and involved in the medical history, the physical exam, medical decision making.
Evaluation and management service: agree unless noted differently below.
Results interpretation: agree unless noted differently below.
Focused HPI: 63-year-old male presenting with shortness of breath and cough. Patient hypoxic and requiring supplemental oxygen. Patient has history of quadriplegia and aspiration
Physical exam: Extremities contracted. Mild tachypnea. Rhonchorous breath sounds
Medical Decision Making: X-ray concerning for recurrent pneumonia. Will start antibiotics. Patient requiring mid flow which will necessitate admission
Discharge Plan
Departure
Patient Disposition: Admit
Date of Disposition: 12/31/23
Time of Disposition: 09:11
Admit to: IMU
Presentation/result/management discussed w/ accepting MD/DO: Hospitalist
Patient with high blood pressure during this ER visit?: No
Condition: Fair
Covid-19: Negative COVID-19
Discharge Problem:
Pneumonia, Hypoxia
Prescriptions:
No Action
acetaminophen 325 MG tablet
650 mg PO Q6HPRN PRN (Reason: mild pain/temp>100F)
polyethylene glycol 3350 17 GRAMS powder in packet
17 grams PO HSPRN PRN (Reason: constipation)
miconazole nitrate [Zeasorb AF] 71 GM powder
1 applic topical BID
citalopram 10 mg Tablet
10 mg PO DAILY
tizanidine 4 mg tablet
8 mg PO QID
baclofen 20 mg tablet
40 mg PO HS
loperamide 2 mg Capsule
2 mg PO Q8HPRN PRN (Reason: diarrhea )
ipratropium-albuterol 0.5 mg-3 mg(2.5 mg base)/3 mL Solution For Nebulization
3 ml INHALATION R QID
ipratropium-albuterol 0.5 mg-3 mg(2.5 mg base)/3 mL Solution For Nebulization
3 ml INHALATION R Q4HPRN PRN (Reason: SOB, wheezing)
ketoconazole 2 % Shampoo
1 applic TOPICAL WE
lidocaine 4 % Adhesive Patch,Medicated
1 patch TOPICAL DAILYPRN PRN (Reason: r proximal humerus)
baclofen 20 mg Tablet
20 mg PO BID
gabapentin 800 mg Tablet
800 mg PO TID
ibuprofen [Advil] 200 mg Tablet
600 mg PO Q6HPRN PRN (Reason: high temp/mild pain)
magnesium citrate Solution
150 ml PO BIDPRN PRN (Reason: if no bm aftr miralax)
midodrine 2.5 mg Tablet
2.5 mg PO Q4HPRN PRN (Reason: sbp less than 80)
nystatin 100,000 unit/gram Powder
1 applic TOPICAL DAILYPRN PRN (Reason: peg tub- removal site)
nystatin 100,000 unit/gram Powder
1 applic TOPICAL DAILY
Rx Instructions:
peg tube-removal site
carboxymethylcellulose sodium 1 % Drops
1 drp BOTH EYES Q6HPRN PRN (Reason: dry eyes)
midodrine 5 mg tablet
5 mg PO TID
diltiazem HCl 30 mg Tablet
30 mg PO TID Qty: 90 0RF
Rx Instructions:
Hold for SBP < 110
Eliquis 5 mg Tablet
5 mg PO BID Qty: 60 0RF
guaifenesin 600 mg Tablet Extended Release 12hr
1,200 mg PO Q12 Qty: 7 0RF
prednisone 10 mg Tablet
See Rx Instructions .ROUTE .COMPLEX Qty: 30 0RF
Rx Instructions:
Take By Mouth:
40 mg daily x3 days, 30 mg daily x3 days,
20 mg daily x3 days, 10 mg daily x3 days.
Referrals:
Mario Rodriguez I., DO [Family Provider] -
Interventions
Interventions:
*Risk Screen - Suicide Last Done: 12/31/23 07:20
*General Assessment Last Done: 12/31/23 07:20
*Neglect/Abuse Screening Last Done: 12/31/23 07:20
ED- Fall Risk Assessment Last Done: 12/31/23 07:20
*ED COVID-19 Vaccine History Last Done: 12/31/23 07:35
ED- Cardiac Assessment Last Done: 12/31/23 07:35
ED- Pulmonary Assessment Last Done: 12/31/23 09:08
Discharge Date and Time
Print Language: SLOVAK
[2023-12-31] MEDS: DUONEB 3 ML INH (08:24)
[2023-12-31 08:52] LABS: % Basophils 0.1 % (0-2); % Eosinophils 0.6 % (0-6); % Immature Granulocytes 0.9 % (0-0.5); % Lymphocytes 4.3 % (20.5-51.1); % Monocytes 3.6 % (1.7-9.3); % Neutrophils 90.5 % (42.2-75.2); Absolute Eosinophils 0.1 10^3/uL (0-0.7); Absolute Immature Granulocytes 0.2 10^3/uL (0-0.05); Absolute Lymphocytes 0.9 10^3/uL (1.2-3.4); Absolute Monocytes 0.7 10^3/uL (0.1-0.6); Absolute Neutrophils 18.5 10^3/uL (1.4-6.5); Hematocrit 39.1 % (39.0-52.0); Hemoglobin 12.5 g/dL (13.0-18.0); Mean Corpuscular Hgb 28.1 pg (27.0-31.0); Mean Corpuscular Volume 87.9 fL (80.0-94.0); Mean Platelet Volume 8.8 fL (7.4-10.4); Nucleated Red Blood Cells % 0 % (-); Platelet Count 301 10^3/uL (130-400); Red Blood Cell Count 4.45 10^6/uL (4.70-6.10); Red Cell Dist. Width 15.8 % (11.5-14.5); White Blood Cell Count 20.4 10^3/uL (4.8-10.8)
[2023-12-31 08:54] LABS: COVID-19 Antigen Negative (Negative)
[2023-12-31 08:59] LABS: INR 1.34; PT 16.4 Sec (11.4-14.6)
[2023-12-31] MEDS: ZOSYN 50 IV ×3 (09:03→21:34)
[2023-12-31 09:07] LABS: ALT (SGPT) 31 U/L (0-50); AST (SGOT) 20 U/L (17-59); Albumin 3.5 g/dl (3.5-5.0); Alkaline Phosphatase 83 U/L (38-126); Blood Urea Nitrogen 16 mg/dl (9-20); Calcium 8.8 mg/dl (8.4-10.2); Carbon Dioxide 29 mmol/L (22-30); Chloride 101 mmol/L (98-107); Estimated Creatinine Clearance 107 ml/min; Glucose 121 mg/dl (70-99); Potassium 4.2 mmol/L (3.5-5.1); Sodium 139 mmol/L (135-145); Total Bilirubin 0.5 mg/dl (0.2-1.3); Total Protein 6.5 g/dl (6.3-8.2); eGFR > 60.00
[2023-12-31 09:17] LABS: NT-proBNP 396 pg/ml; Troponin I < 0.012 ng/ml
--- NOTE | 2023-12-31 09:35 | HPS.HSE ---
Family Physician
-
Family Physician: Mario Rodriguez
Chief Complaint
-
hypoxia
History of Present Illness
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
He was sent in from his [facility] for worsening hypoxic (was on 2L NC, now up to 10L mid flow in ED).
He denies to other symptoms.
Medical History
Past Medical History
Past Medical History: Reports Other
Additional Past Medical History:
Quadriplegia
Bladder spasm
Colostomy
Pneumonia
Oropharyngeal dysphagia
Controlled type 2 diabetes
Muscle spasm
suprapubic cath
Past Surgical History: Reports None
Social History
Tobacco: Non-smoker
Alcohol: None
Drug: None
Personal:
Living: With Family
Family History
Family History: Not pertinent
Allergies / Home Medications
Allergies reflects when Allergies were last updated in [facility].
Home Medications with original date entered in [facility]
Allergy/Medication List:
Allergies
Allergy/AdvReac Type Severity Reaction Status Date / Time
adhesive Allergy Rash Verified 12/31/23 08:20
latex Allergy SEE BELOW Verified 12/31/23 08:20
vancomycin Allergy trunk/back Verified 12/31/23 08:20
red rash
Home Medications
acetaminophen 325 mg tablet 650 mg PO Q6HPRN PRN mild pain/temp>100F 08/30/21
miconazole nitrate 2 % topical powder (Zeasorb AF) 1 applic topical BID groin irritation 09/21/21
polyethylene glycol 3350 17 gram oral powder packet 17 grams PO HSPRN PRN constipation 09/21/21
citalopram 10 mg tablet 10 mg PO DAILY depression/anxiety 05/22/22
baclofen 20 mg tablet 40 mg PO HS Muscle Spasms 12/21/22
ipratropium 0.5 mg-albuterol 3 mg (2.5 mg base)/3 mL nebulization soln 3 ml inhalation R Q4HPRN PRN SOB, wheezing 12/21/22
ipratropium 0.5 mg-albuterol 3 mg (2.5 mg base)/3 mL nebulization soln 3 ml inhalation R QID Lung/Breathing Issues 12/21/22
loperamide 2 mg capsule 2 mg PO Q8HPRN PRN diarrhea 12/21/22
tizanidine 4 mg tablet 8 mg PO QID Muscle Spasms 12/21/22
baclofen 20 mg tablet 20 mg PO BID muscle spasms 12/21/23
carboxymethylcellulose sodium 1 % eye drops 1 drp BOTH EYES Q6HPRN PRN dry eyes 12/21/23
gabapentin 800 mg tablet 800 mg PO TID pain 12/21/23
ibuprofen 200 mg tablet (Advil) 600 mg PO Q6HPRN PRN high temp/mild pain 12/21/23
ketoconazole 2 % shampoo 1 applic topical WE Skin Issues 12/21/23
lidocaine 4 % topical patch 1 patch topical DAILYPRN PRN r proximal humerus 12/21/23
magnesium citrate 150 ml PO BIDPRN PRN if no bm aftr miralax 12/21/23
midodrine 2.5 mg tablet 2.5 mg PO Q4HPRN PRN sbp less than 80 12/21/23
midodrine 5 mg tablet 5 mg PO TID blood pressure 12/21/23
nystatin 100,000 unit/gram topical powder 1 applic topical DAILY Skin Issues 12/21/23
nystatin 100,000 unit/gram topical powder 1 applic topical DAILYPRN PRN peg tub- removal site 12/21/23
apixaban 5 mg tablet (Eliquis) 5 mg PO BID Atrial fibrillation #60 tabs 12/28/23
diltiazem HCl 30 mg tablet 30 mg PO TID #90 tabs 12/28/23
guaifenesin 600 mg tablet, extended release 12 hr 1,200 mg (2 x 600 mg) PO Q12 #7 tabs 12/28/23
prednisone 10 mg tablet See Rx Instructions .Route .COMPLEX #30 tabs 12/28/23
Review of Systems
-
Respiratory: Reports See HPI
Physical Exam
Vital Signs
Vital Signs
Temp Pulse Resp BP Pulse Ox
37.1 C 66 15 131/79 94
12/31/23 07:20 12/31/23 08:15 12/31/23 08:15 12/31/23 08:00 12/31/23 09:08
Physical Exam
General: Well Developed, Well Nourished, Conversant, Respiratory Distress and Appears Chronically Ill
HEENT: Oxygen (10L mid flow )
Respiratory: Rhonchi and Non Labored Respirations; No Accessory Resp Muscle Use
Cardiac: S1/S2 and Regular Rhythm; No Murmur or Rub
GI: Soft, Non Tender, Non Distended and Normal Bowel Sounds; No Organomegaly
Rectal: Deferred by Provider
Musculoskeletal: No Edema and Other (quadriplegic, upper extremities contractures)
Skin: No Rash
Neuro: Awake and Alert
Psych: Calm and Intact Judgment/Insight (somewhat)
Laboratory Results
-
12/31/23 08:38
12/31/23 08:38
Laboratory Results
PT 16.4 Sec (11.4-14.6) H 12/31/23 08:38
INR 1.34 12/31/23 08:38
Total Bilirubin 0.5 mg/dl (0.2-1.3) 12/31/23 08:38
AST 20 U/L (17-59) 12/31/23 08:38
ALT 31 U/L (0-50) 12/31/23 08:38
Alkaline Phosphatase 83 U/L (38-126) 12/31/23 08:38
Troponin I < 0.012 ng/ml 12/31/23 08:38
Data Reviewed
-
Diagnostic Radiology: Image Personally Visualized and interpreted and Report Reviewed by me
Lab Data: Labs Reviewed by me
Impression/Plan
-
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
He was sent in from his [place] for worsening hypoxic (was on 2L NC, now up to 10L mid flow in ED).
He denies to other symptoms.
A/P:
# Acute on chronic hypoxic respiratory failure, likely due to recurrent aspiration pneumonia
# Recent admission for aspiration pneumonia
Pt was weaned to 2L NC at [place], now back to 10L mid flow, cont O2 and wean as tolerated. Per , pt not on O2 at baseline
CXR this admission noted New area of patchy parenchymal opacity within the left upper to midlung, suggesting a new focal area of pneumonia.
# Suspect recurrent aspiration pneumonia
He recently completed empiric Zosyn during hospital stay
Check procal
restart empiric Zosyn
Started GOC discussion with due to recurrent aspiration.
SPL eval, NPO for now
noted recent VSE 12/24 cleared for mince moist diet
continue chronic midodrine with parameters
Nebs with levalbuterol
Hold further steroid for now (was on tapering dose)
# Chronic suprapubic catheter POA
# Chronic urinary retention
s/p recent SPC exchange on 12/23/23
# Acute to subacute impacted fracture of the right humeral neck
per , he suffered a shoulder fracture by hitting his arm against a metal bar.
Shoulder X-ray noted healing subacute right humeral neck fracture but possible blastic osseous metastatic disease.
Finding was discussed with patient and and they preferred to NOT further investigate the blastic bone lesions.
PSA was sent, WNL at 2.6
# paroxysmal A fib from recent admission
Pt was recently started with Cardizem 30 mg TID with holding parameter
pt was recently started with Eliquis 5 mg BID
# Anemia of chronic disease
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
# Muscle Spasms due to Quadriplegia
# Hx of Bowel resection
continue [employer] Tizanidine, gabapentin, baclofen
Colostomy care
noted recent VSE 12/24 cleared for mince moist diet
# Anxiety/Depression
Pt taken off benzo recently
continue Celexa
# Chronic wounds present on arrival
# Midodrine induced hypertension
prn Hydralazine with parameters placed
�
DVT prophylaxis: Eliquis
Code: DNR/DNI
discussed GOC with
--- NOTE | 2023-12-31 11:06 | PHANOTE ---
Med Rec Note:
Paperwork not left with patient. Called [facility], no answer. Pt recently discharged from on 12/28/23, home med list compiled from recent discharge.
[2023-12-31 11:15] LABS: Procalcitonin 0.32 ng/ml (0.0-0.25)
--- NOTE | 2023-12-31 12:25 | PTCARENOTE ---
Pt arrived from ER 10 L midflow now desating on 15 liters 89% Rsp reaching out to MD. Pt talking stating hes getting tired of all of this but he needs to keep going for his family. Pt is pale NSR . Colostomy in place and supra pubic cath. Wounds as
documented . also scattered scabs on legs Pt is paralyzed from breatbone down. Quad call gastelum at pillow. Pt watching football
--- NOTE | 2023-12-31 12:30 | W.PN.UPDATE ---
Update Note
Progress Note Update
Informed by resp therapist that pt's sat now at 89% on 15 liters midflow.
Will up-titrate to high flow NC
[facility]
--- NOTE | 2023-12-31 12:58 | CON.PUL ---
Consultation
Consultation Request
Date/Time Consultation Requested: 12/31/2023-1:30 PM
Date/Time Consultation Performed: 12/31/2023-1:30 PM
Requesting Provider: Hospitalist
Performing Provider: Dr. Nuno
Reason for Consultation: Shortness of breath
Medical History
-
Chief Complaint: Shortness of breath
History of Present Illness:
63-year-old C2-4 level quadriplegic male with a history of spinal infarction, chronic dysphagia, recurrent aspiration pneumonia, chronic suprapubic catheter who was recently discharged after being treated for aspiration pneumonia and returns from
the care home with worsening hypoxemia-pulmonary consulted for hypoxemia/recurrent aspiration pneumonia 12/31/2023. Patient is on high flow oxygen and denies any shortness of breath. Saturations are now 99%. Does not complain chest congestion,
does have significant increase secretions, no chest pain, and cannot feel anything below the neck and thus cannot comment on any pain.
Past Medical History
Past Medical History: None (Zkzgqngshnpe-Y6-5 level after spinal infarction. Chronic dysphagia. Chronic suprapubic catheter. Recurrent aspiration pneumonia. Bladder spasms. Diabetes.)
Social History
Tobacco: Non-smoker
Alcohol: None
Drug: None
Personal:
Living: With Family
Occupational Exposures: No known asbestos exposure
Environmental Exposures: No known tuberculosis exposure
Family History
Family History: Reviewed & Not Pertinent
Allergies / Home Medications
Allergies
Allergy/AdvReac Type Severity Reaction Status Date / Time
adhesive Allergy Rash Verified 12/31/23 08:20
latex Allergy SEE BELOW Verified 12/31/23 08:20
vancomycin Allergy trunk/back Verified 12/31/23 08:20
red rash
Home Medications
�Medication �Instructions �Recorded �Confirmed �Last Taken �Type
acetaminophen 325 mg tablet 650 mg PO Q6HPRN PRN mild 08/30/21 12/31/23 09/19/21 09:55 History
pain/temp>100F
miconazole nitrate 2 % topical 1 applic topical BID groin 09/21/21 12/31/23 Unknown History
powder (Zeasorb AF) irritation
polyethylene glycol 3350 17 gram 17 grams PO HSPRN PRN constipation 09/21/21 12/31/23 Unknown History
oral powder packet
citalopram 10 mg tablet 10 mg PO DAILY depression/anxiety 05/22/22 12/31/23 Unknown History
baclofen 20 mg tablet 40 mg PO HS Muscle Spasms 12/21/22 12/31/23 Unknown History
ipratropium 0.5 mg-albuterol 3 mg 3 ml inhalation R Q4HPRN PRN SOB, 12/21/22 12/31/23 Unknown History
(2.5 mg base)/3 mL nebulization wheezing
soln
ipratropium 0.5 mg-albuterol 3 mg 3 ml inhalation R QID 12/21/22 12/31/23 Unknown History
(2.5 mg base)/3 mL nebulization Lung/Breathing Issues
soln
loperamide 2 mg capsule 2 mg PO Q8HPRN PRN diarrhea 12/21/22 12/31/23 Unknown History
tizanidine 4 mg tablet 8 mg PO QID Muscle Spasms 12/21/22 12/31/23 Unknown History
baclofen 20 mg tablet 20 mg PO BID muscle spasms 12/21/23 12/31/23 Unknown History
carboxymethylcellulose sodium 1 % 1 drp BOTH EYES Q6HPRN PRN dry eyes 12/21/23 12/31/23 Unknown History
eye drops
gabapentin 800 mg tablet 800 mg PO TID pain 12/21/23 12/31/23 Unknown History
ibuprofen 200 mg tablet (Advil) 600 mg PO Q6HPRN PRN high 12/21/23 12/31/23 Unknown History
temp/mild pain
ketoconazole 2 % shampoo 1 applic topical WE Skin Issues 12/21/23 12/31/23 Unknown History
lidocaine 4 % topical patch 1 patch topical DAILYPRN PRN r 12/21/23 12/31/23 Unknown History
proximal humerus
magnesium citrate 150 ml PO BIDPRN PRN if no bm aftr 12/21/23 12/31/23 Unknown History
miralax
midodrine 2.5 mg tablet 2.5 mg PO Q4HPRN PRN sbp less than 12/21/23 12/31/23 Unknown History
80
midodrine 5 mg tablet 5 mg PO TID blood pressure 12/21/23 12/31/23 Unknown History
nystatin 100,000 unit/gram topical 1 applic topical DAILY Skin Issues 12/21/23 12/31/23 Unknown History
powder
nystatin 100,000 unit/gram topical 1 applic topical DAILYPRN PRN peg 12/21/23 12/31/23 Unknown History
powder tub- removal site
apixaban 5 mg tablet (Eliquis) 5 mg PO BID Atrial fibrillation 12/28/23 12/31/23 Unknown Rx
#60 tabs
diltiazem HCl 30 mg tablet 30 mg PO TID #90 tabs 12/28/23 12/31/23 Unknown Rx
guaifenesin 600 mg tablet, 1,200 mg (2 x 600 mg) PO Q12 #7 12/28/23 12/31/23 Unknown Rx
extended release 12 hr tabs
prednisone 10 mg tablet See Rx Instructions .Route 12/28/23 12/31/23 Unknown Rx
.COMPLEX #30 tabs
Review of Systems
-
Unable to Obtain full review of systems at this time due to: Other (Per HPI)
Vitals / Labs / Diagnostic Testing
Vital Signs
Temp Pulse Resp BP Pulse Ox
98.7 F 65 10 83/56 95
12/31/23 07:20 12/31/23 11:00 12/31/23 11:00 12/31/23 11:00 12/31/23 12:42
Lab Data
12/31/23 08:38
12/31/23 08:38
Laboratory Results
12/31/23
08:38
PT 16.4 H
INR 1.34
Diagnostic Testing:
Physical Exam
-
Exam:
Well-nourished and well-developed in no apparent distress
HEENT-atraumatic, normocephalic
Neck-supple, no JVD, no bruit
Heart-regular rate and rhythm-no murmurs, rubs or gallops
Chest with crackles at bases, rhonchi and no wheezes
Abdomen-soft, nontender, nondistended, no hepatosplenomegaly
Extremities-no cyanosis, clubbing, edema and good peripheral pulses
Integument-intact, no rashes, lesions or ecchymosis
Neurology-alert, quadriplegic
Assessment
-
63-year-old C2-4 level quadriplegic male with a history of spinal infarction, chronic dysphagia, recurrent aspiration pneumonia, chronic suprapubic catheter who was recently discharged after being treated for aspiration pneumonia and returns from
the care home with worsening hypoxemia-pulmonary consulted for hypoxemia/recurrent aspiration pneumonia 12/31/2023.
Respiratory failure-acute hypoxemic
Recurrent aspiration pneumonia
Leukocytosis
Mild srbikv-ofiraqjlkq-iogldlmwhs 12.5
Mild hyperglycemia
Elevated procalcitonin
DNR
Conditions present prior to admission:
Recent hospitalization-discharged 12/28/2023-aspiration pneumonia
Cgqburpmtmcc-U2-6 level after spinal infarction-2014
Status post colostomy/suprapubic catheter/PEG
History of CVA 2012
History of cardiopulmonary arrest/sepsis 08/2021
PAF in setting of sepsis 2018
MRSA in the past
Stage IV sacral decub status post resection with diverting colostomy
Anemia of chronic disease
Chronic dysphagia.
Chronic suprapubic catheter.
Recurrent UTI
Chronic hypotension on midodrine
Recurrent aspiration pneumonia.
Bladder spasms.
Diabetes.
Right proximal humeral fracture-age unknown-possibility for metastatic disease, bone scan recommended-conservative management
Plan
Recurrent respiratory decompensation related to recurrent pneumonias-likely aspiration
Supplemental oxygen as needed
High flow oxygen if needed
Noninvasive ventilation if needed
Patient is a DO NOT INTUBATE
Mucolytic's
Mucus clearing devices
Cuffolater or vest therapy if tolerated-reviewed previous hospitalization records-intermittently tolerated best, however sometimes refused and did not feel it was helping
Head of bed elevation
Consider speech therapy reevaluation-followed on last admission
Check cultures
Urine Legionella and streptococcal antigen 12/23/2023-negative
MRSA screen 12/21/2023-negative
Urine culture 12/21/2022-Morganella Morgagni
Empiric antibiotics
Follow radiographically
Consider infectious disease consultation
Monitor hemoglobin
Transfuse if needed
Monitor blood sugar
Insulin supplementation if needed
DVT prophylaxis
Nutrition with aspiration precautions
Reviewed with primary team as well as nursing-goals of care discussion ongoing
Diagnostic data:
Chest x-ray 09/22/2022-elevated left hemidiaphragm, left lower lobe opacification
Chest x-ray 12/22/2023-rapid interval increase in large airspace consolidation right upper lobe, aspiration pneumonia suspected, acute to subacute impacted fracture right humeral neck
Chest x-ray 12/27/2023 opacification right middle lobe again with some volume loss, bilateral upper extremity obscured the mid to lower lungs bilaterally
Chest x-ray 12/31/2023-new area of patchy opacification left upper to midlung field suggesting new pneumonia, right proximal humeral fracture noted dating back to December 22, 2023 but not present December 21, 2022
CT chest 09/22/2022-resolution of previous mucous plugging in the left lower lobe, there remains near complete collapse of the left lower lobe, small to moderate loculated pleural effusion
Data Reviewed
-
EKG: Report reviewed by me
Radiology: Report reviewed by me
CT Scan: Report reviewed by me
Labs: Labs reviewed by me
Old Records: Reviewed
Total Time Spent with Patient (in minutes): 55
[2023-12-31] MEDS: ProAmatine 2.5 MG PO (14:15)
[2023-12-31] MEDS: ZANAFLEX 8 MG PO ×3 (14:16→21:34)
[2023-12-31] MEDS: NSS 250 IV (14:27)
--- NOTE | 2023-12-31 14:31 | PTCARENOTE ---
DR Villar TT re BP , new orders given. Pt states he feels fine
[2023-12-31] MEDS: ATROVENT NEBULES 0.5 MG INH ×2 (14:49→19:46)
[2023-12-31] MEDS: XOPENEX 1.25 MG INHALANT SOLUTION INH ×2 (14:49→19:46)
[2023-12-31] MEDS: NEURONTIN 800 MG PO ×2 (16:16→21:33)
[2023-12-31] MEDS: CARDIZEM 30 MG PO ×2 (16:16→21:33)
[2023-12-31] MEDS: ProAmatine 5 MG PO (16:19)
[2023-12-31] MEDS: LIORESAL 20 MG PO (17:49)
[2023-12-31] MEDS: ELIQUIS 5 MG PO (21:33)
[2023-12-31] MEDS: LIORESAL 40 MG PO (21:34)
[2024-01-01] VITALS (20 sets, daily range): BP systolic 70–119; BP diastolic 55–93; BMI 22.7
[2024-01-01] MEDS: ProAmatine 2.5 MG PO ×3 (02:04→21:26)
[2024-01-01] MEDS: ZOSYN 50 IV ×4 (04:08→21:25)
[2024-01-01 04:23] LABS: Hemoglobin 12.5 g/dL (13.0-18.0); Mean Corp Hgb Conc. 32.1 g/dL (33.0-37.0); Mean Corpuscular Hgb 28.5 pg (27.0-31.0); Platelet Count 315 10^3/uL (130-400); Red Blood Cell Count 4.38 10^6/uL (4.70-6.10); Red Cell Dist. Width 15.7 % (11.5-14.5); White Blood Cell Count 23.4 10^3/uL (4.8-10.8)
--- NOTE | 2024-01-01 04:46 | PTCARENOTE ---
Patient hypotensive overnight. PRN midodrine given and effective for a few hours before becoming hypotensive again. order caller provider made aware
[2024-01-01 05:10] LABS: Blood Urea Nitrogen 20 mg/dl (9-20); Calcium 8.8 mg/dl (8.4-10.2); Carbon Dioxide 20 mmol/L (22-30); Chloride 102 mmol/L (98-107); Estimated Creatinine Clearance 107 ml/min; Glucose 68 mg/dl (70-99); Potassium 4.2 mmol/L (3.5-5.1); Sodium 137 mmol/L (135-145); eGFR > 60.00
--- NOTE | 2024-01-01 05:30 | PTCARENOTE ---
AM labs with glucose of 68. Rechecked with glucometer and 84.
[2024-01-01 05:36] LABS: Glucose - Point of Care 84 mg/dl (70-99)
[2024-01-01] MEDS: XOPENEX 1.25 MG INHALANT SOLUTION INH ×3 (07:22→19:38)
[2024-01-01] MEDS: ATROVENT NEBULES 0.5 MG INH ×3 (07:22→19:38)
[2024-01-01] MEDS: ZANAFLEX 8 MG PO ×4 (08:35→21:24)
[2024-01-01] MEDS: NEURONTIN 800 MG PO ×3 (08:36→21:24)
[2024-01-01] MEDS: CELEXA 10 MG PO (08:36)
[2024-01-01] MEDS: ProAmatine 5 MG PO ×3 (08:36→16:40)
[2024-01-01] MEDS: LIORESAL 20 MG PO ×2 (08:37→17:25)
[2024-01-01] MEDS: CARDIZEM 30 MG PO (08:38)
[2024-01-01] MEDS: ELIQUIS 5 MG PO ×2 (08:39→20:02)
--- NOTE | 2024-01-01 08:40 | PTOTSP ---
Speech Language Pathology
Pt seen for clinical bedside swallow evaluation. Well known to [employer] at with recent VSE completed 12/25/23. No penetration/aspiration or pharyngeal residue noted. IDDSI Level 5/thin liquids was recommended as pt did not have dentures in hospital.
This date, dentures at bedside. With dentures in place at facility, he tolerates soft solids/thin liquids. Denture adhesive not present in room. P.O. trials of regular solids and thin liquids provided. Slightly prolonged mastication of regular
solids noted. No overt signs of aspiration. RN reported good tolerance of meds in puree and sips of liquids. Called [facility] to send denture adhesive for pt.
Recommend:
(1) IDDSI Level 6 (Soft/Bite-Sized) and Thin Liquids
(2) Aspiration precautions: sit upright, slow rate, single sips
(3) Meds whole in puree
(4) [employer] to follow, likely briefly
--- NOTE | 2024-01-01 09:28 | W.PN.PUL3 ---
Today's Communication / Plan
-
With persistent hypoxemia on HFNC and new changes on CXR, will obtain CT chest
Aspiration possible, but VSE recently showing adequate swallow
Airway clearance is still an issue with his functional quadriplegia baseline
Maintained on empiric abx
He is notably DNI
If not improving, would be reasonable to discuss GOC
Assessment
-
63-year-old C2-4 level quadriplegic male with a history of spinal infarction, chronic dysphagia, recurrent aspiration pneumonia, chronic suprapubic catheter who was recently discharged after being treated for aspiration pneumonia and returns from
the long term with worsening hypoxemia-pulmonary consulted for hypoxemia/recurrent aspiration pneumonia 12/31/2023.
Respiratory failure-acute hypoxemic
Recurrent aspiration pneumonia
Leukocytosis
Mild ehrkyv-dushwjyatj-aawrfersag 12.5
Mild hyperglycemia
Elevated procalcitonin
DNR
Conditions present prior to admission:
Recent hospitalization-discharged 12/28/2023-aspiration pneumonia
Bvorcqvlsabq-X3-3 level after spinal infarction-2014
Status post colostomy/suprapubic catheter/PEG
History of CVA 2012
History of cardiopulmonary arrest/sepsis 08/2021
PAF in setting of sepsis 2018
MRSA in the past
Stage IV sacral decub status post resection with diverting colostomy
Anemia of chronic disease
Chronic dysphagia.
Chronic suprapubic catheter.
Recurrent UTI
Chronic hypotension on midodrine
Recurrent aspiration pneumonia.
Bladder spasms.
Diabetes.
Right proximal humeral fracture-age unknown-possibility for metastatic disease, bone scan recommended-conservative management
Plan
Recurrent respiratory decompensation related to recurrent pneumonias-likely aspiration
Supplemental oxygen as needed
High flow oxygen, wean as tolerated
Noninvasive ventilation if needed
Patient is a DO NOT INTUBATE
Airway clearance continued, Mucolytic's/nebs
Cuffolater or vest therapy if tolerated-reviewed previous hospitalization records-intermittently tolerated best, however sometimes refused and did not feel it was helping
Head of bed elevation
Speech therapy reevaluation-followed on last admission
VSE 12/25/23 noted--No penetration/aspiration or pharyngeal residue noted.
Continue IDDSI Level 6 (Soft/Bite-Sized) and Thin Liquids
Presumed aspiration PNA
Check cultures if able
Urine Legionella and streptococcal antigen 12/23/2023-negative
MRSA screen 12/21/2023-negative
Urine culture 12/21/2022-Morganella Morgagni
Empiric antibiotics
Follow radiographically--has not improved
Will obtain CT chest to evaluate
DVT prophylaxis
Nutrition with aspiration precautions
Reviewed with primary team as well as nursing-goals of care discussion ongoing
Diagnostic Data:
Chest x-ray 09/22/2022-elevated left hemidiaphragm, left lower lobe opacification
Chest x-ray 12/22/2023-rapid interval increase in large airspace consolidation right upper lobe, aspiration pneumonia suspected, acute to subacute impacted fracture right humeral neck
Chest x-ray 12/27/2023 opacification right middle lobe again with some volume loss, bilateral upper extremity obscured the mid to lower lungs bilaterally
Chest x-ray 12/31/2023-new area of patchy opacification left upper to midlung field suggesting new pneumonia, right proximal humeral fracture noted dating back to December 22, 2023 but not present December 21, 2022
CT chest 09/22/2022-resolution of previous mucous plugging in the left lower lobe, there remains near complete collapse of the left lower lobe, small to moderate loculated pleural effusion
Subjective Data
-
Date of Service:
Date of Service: January 01, 2024
Chief Complaint: Pulmonary Follow Up
Subjective:
No acute events ON, remains on HFNC
Sleeping on my arrival, difficult to arouse
No new ROS
Objective Data
Data Reviewed
Vital Signs / I&O / Oxygen:
Vital Signs
Temp Pulse Resp BP Pulse Ox
98.7 F 93 22 85/64 90
01/01/24 03:00 01/01/24 08:38 01/01/24 07:40 01/01/24 08:38 01/01/24 07:40
Intake and Output
12/31/23 01/01/24 01/02/24
06:59 06:59 06:59
Intake Total 350 / 350 50 / 50
Output Total 550 / 550
Balance -200 / -200 50 / 50
SaO2 90
Nasal Cannula flow liters per 50
minute
Physical Exam
General: Comfortable and Other (NAD, chronically ill appearing)
HEENT: Normocephalic, Anicteric and Moist Mucous Membranes
Cardiovascular: S1-S2 and Regular Rhythm
Respiratory: Clear and Non-Labored Respirations
GI: Non Distended, Non Tender and Other (ostomy present, bandages)
Neurology: Awake, Alert and Lethargic
Skin: Warm, Dry and Good Color
Labs/Micro/Reports
Lab Data
01/01/24 04:07
01/01/24 04:07
--- NOTE | 2024-01-01 09:46 | WOUNDNOTE ---
L EAR (UPPER CREASE)
--- NOTE | 2024-01-01 09:49 | WOUNDNOTE ---
[facility] RN note: Patient admitted with: Hypoxia. Patient resides at SNF.
History: from H+P
quadriplegia
Bladder spasm
Colostomy
Pneumonia
Oropharyngeal dysphagia
Controlled type 2 diabetes
Muscle spasm
Moctezuma cath (Suprapubic).
Wound Location and type/assessment: R inner buttocks dermal skin tear (MARSI?) and L pinpoint adhesive skin tear (MARSI), L ischial almost heal/newlyhealed pressure injury which was originally a stage 4 pressure injury. Mild discolored red rash
like skin (eczema appearing) on sacral/buttocks/ischium. Small dry scabs Le's/ankle/thighs suspect r/t his poor skin condition (eczema?), fragile skin. Bilateral heels with discolored dull red scars. Abdominal MASD r/t drainage from an old feeding
tube removal site that never fully closed.
Appetite: on a IDDSI 6, soft and bite sized diet.
Pressure redistribution devices in place: Centrella Max air bed. Patient immobile. TruVue lite boots.
Plan: Silicone border foam applied to sacral/buttocks. Silicone foam applied L ischium. Abdominal dressing changed. Patient turned to L semi side lying position with help from STELLA Moulton. TruVue lite boots reapplied after protective foam dressings
changed on heels. Patient at risk for worsening skin/wounds despite preventative measures in place due quadriplegia, fragile skin, bony prominences/scars, HOB elevated.
Will confirm orders with hospitalist and discussed with STELLA Moulton.
Will update care plan and will follow as needed.
--- NOTE | 2024-01-01 09:54 | PTCARENOTE ---
Pt AAOx3 took pills in applesauce with out incident . Colostomy had 250 brown liq stool. Wound care nurse saw pt. Speech therapy saw pt. Blood pressures are soft Midodrine onboard.
--- NOTE | 2024-01-01 10:07 | WOUNDNOTE ---
ABDOMEN (OLD FEEDING TUBE SITE)
--- NOTE | 2024-01-01 10:08 | WOUNDNOTE ---
[facility] RN note: Patient admitted with: Hypoxia. Patient resides at [facility].
History: from H+P
quadriplegia
Bladder spasm
Colostomy
Pneumonia
Oropharyngeal dysphagia
Controlled type 2 diabetes
Muscle spasm
Moctezuma cath (Suprapubic).
Wound Location and type/assessment: R inner buttocks dermal skin tear (MARSI?) and L pinpoint adhesive skin tear (MARSI) L sacral/buttocks, L ischial almost heal/newly healed pressure injury which was originally a stage 4 pressure injury. L upper
ear crease stage 2 pressure injury d/t o2 tubing/strap. Mild discolored red rash like skin (eczema appearing) on sacral/buttocks/ischium. Small dry scabs Le's/ankle/thighs suspect r/t his poor skin condition (eczema?), fragile skin. Bilateral heels
with discolored dull red scars. Abdominal MASD r/t drainage from an old feeding tube removal site that never fully closed.
Appetite: currently NPO.
Pressure redistribution devices in place: Centrea Max air bed. Patient immobile. TruVue lite fiber filled heel relief boots.
Plan: Silicone border foam applied to sacral/buttocks. Silicone foam applied L ischium. Silicone foam applied to L upper ear crease. Oxygen straps padded with non woven gauze over ears/cheeks. Abdominal dressing changed. Patient turned to L semi
side lying position with help from STELLA Moulton. TruVue lite boots reapplied after protective foam dressings changed on heels. Patient at risk for worsening skin/wounds despite preventative measures in place due quadriplegia, fragile skin, bony
prominences/scars, HOB elevated.
Will confirm orders with Dr. Cool and discussed with STELLA Moulotn.
Will update care plan and will follow as needed.
--- NOTE | 2024-01-01 12:34 | PTCARENOTE ---
Pt to Chest ct and back on 15 l midflow with out incident
--- NOTE | 2024-01-01 13:39 | W.PN.HOSP.TC ---
Addendum entered and electronically signed by Dallas Cool MD 01/01/24 16:56:
update spouse over the phone in details.
Original Note:
Today's Communication/Plan
-
cont abx
ID input
restart diet
wean o2
residential prognosis poor
Assessment / Plan
Assessment / Plan
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
He was sent in from his NH for worsening hypoxic (was on 2L NC, now up to 10L mid flow in ED).
He denies to other symptoms.
A/P:
# Acute on chronic hypoxic respiratory failure, likely due to recurrent pneumonia
# Recent admission for aspiration pneumonia
#Sepsis 2/2 PNA-POA
Pt was weaned to 2L NC at [facility]. Require HFNC overnight. Plan to wean down to midflow +/- NRB mask
CXR this admission noted New area of patchy parenchymal opacity within the left upper to midlung, suggesting a new focal area of pneumonia.
CXR negative for PE.
He recently completed empiric Zosyn during hospital stay
Procal mildly elevated at 0.32
restart empiric Zosyn. MRSA pending.
Dr. Villar started GOC discussion with due to recurrent aspiration.
Started on modified diet
noted recent VSE 12/24 cleared for mince moist diet
continue chronic midodrine with parameters
Nebs with levalbuterol
Trend wbc. Will ask ID for input. (From [place], Received prolonged course of abx zosyn. multiple hospitalization for PNA)
Hold further steroid for now (was on tapering dose)
Decreased airway clearance remains to be the biggest hinderence for oxygenation improvement
# Chronic suprapubic catheter POA
# Chronic urinary retention
s/p recent SPC exchange on 12/23/23
# Acute to subacute impacted fracture of the right humeral neck
per , he suffered a shoulder fracture by hitting his arm against a metal bar.
Shoulder X-ray noted healing subacute right humeral neck fracture but possible blastic osseous metastatic disease.
Finding was discussed with patient and and they preferred to NOT further investigate the blastic bone lesions.
PSA was sent, WNL at 2.6
# paroxysmal A fib from recent admission
Pt was recently started with Cardizem 30 mg TID with holding parameter
pt was recently started with Eliquis 5 mg BID
# Anemia of chronic disease
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
# Muscle Spasms due to Quadriplegia
# Hx of Bowel resection
continue [employer]ING Tizanidine, gabapentin, baclofen
Colostomy care
noted recent VSE 12/24 cleared for mince moist diet
Monitor mentation closely
# Anxiety/Depression
Pt taken off benzo recently
continue Celexa
# Chronic wounds present on arrival
# Midodrine induced hypertension
prn Hydralazine with parameters placed
�
DVT prophylaxis: Eliquis
Code: DNR/DNI
Anticipated Discharge: > 48 hours
Subjective/Interval History
-
Date of Service: January 01, 2024
Was on HFNC and now with plan to transition to midflow
Objective Data
-
Labs:
Laboratory Results
01/01/24
04:07
WBC 23.4 H
Hgb 12.5 L
Hct 39.0
Plt Count 315
Sodium 137
Potassium 4.2
Chloride 102
Carbon Dioxide 20 L
BUN 20
Creatinine 0.4 L
Glucose 68 L
Calcium 8.8
Vital Signs:
Vital Signs
Temp Pulse Resp BP Pulse Ox
98.2 F 66 13 95/58 94
01/01/24 12:54 01/01/24 13:02 01/01/24 13:02 01/01/24 12:36 01/01/24 13:02
I&O
12/31/23 01/01/24 01/02/24
06:59 06:59 06:59
Intake Total 350 / 350 50 / 50
Output Total 550 / 550 250 / 250
Balance -200 / -200 -200 / -200
Physical Exam
-
General: Well Developed, Comfortable, Respiratory Distress and Appears Chronically Ill
HEENT: Normocephalic, Atraumatic and Oxygen (midflow)
Respiratory: Rhonchi and Non Labored Respirations; Negative Accessory Resp Muscle Use
Cardiac: Regular Rhythm and S1/S2
GI: Soft, Nontender, Nondistended and Normal Bowel Sounds
Musculoskeletal: No Edema
Skin: Warm
Neuro: Awake, Alert and Other (bedbound, contractures upper arms)
Psych: Calm
Data Reviewed
-
Total Time Spent with Patient (in minutes): 58
--- NOTE | 2024-01-01 14:36 | CON.ID ---
Consultation
-
Date/Time Consultation Requested: 01/01/2024 1409
Date/Time Consultation Performed: 01/01/2024 1436
Requesting Provider: Dr. Cool
Performing Provider: Dr. Moeller
Reason for Consultation: Pneumonia
Chief Complaint / Past History
History of Present Illness
Anahi Burkett is a 63-year-old man being evaluated at the request of Dr. Cool in regards to pneumonia. History is obtained from chart review, along with patient interview.
The patient was a recent inpatient from 12/20 through 12/27, during which time he was treated for pneumonia. He subsequently was transferred back to the care home, but the patient presented to the emergency room on 12/30 secondary to worsening
hypoxemia. He previously was on 2 L nasal cannula, but required 10 L mid flow in the emergency room. He was placed on empiric antibiotics, and Infectious Diseases is asked to comment upon further antimicrobial therapy.
At this time he can provide very little in the way of history. Nursing does report that he has a very 'wet' sounding cough. He is not currently producing any sputum. He continues at this time on 15 L mid flow nasal cannula.
Past History
Additional Past Medical History:
Quadriplegia due to C4 spinal infarct.
Chronic sacral decubitus.
Status post diverting colostomy.
Neurogenic bladder with chronic suprapubic catheter.
History of staghorn calculus, status post extraction in the past.
MDRO
Chronic hypotension, on midodrine.
Aspiration PNA
CVA
Anxiety/depression
Additional Past Surgical History:
PEG
Allergy History:
adhesive Allergy (Verified 12/31/23 08:20)
Rash
latex Allergy (Verified 12/31/23 08:20)
SEE BELOW
vancomycin Allergy (Verified 12/31/23 08:20)
trunk/back red rash
Medications Reviewed: Yes
Current Antibiotics:
Zosyn 3.375 g IV every 6 hours
Social History
Tobacco: Non-Smoker
Alcohol: None
Drug: None
Living: Skilled Nursing
Employment: Disabled
Family History
Family History: Not Pertinent
Review of Systems
Vital Signs
Temp Pulse Resp BP Pulse Ox
98.2 F 66 13 95/58 94
01/01/24 12:54 01/01/24 13:02 01/01/24 13:02 01/01/24 12:36 01/01/24 13:02
Physical Exam
Physical Exam
Constitutional: Comfortable, Chronically Ill, Non-toxic and Cachetic
Head: Normocephalic
Eyes: Pupils Equal, Pupils Round, No Conjunctival Hemorrhage and Sclera Anicteric
Oral: No Thrush and No Ulcers
Lymph Nodes: Negative Lymphadenopathy
Cardiovascular: Regular Rate and S1/S2; Negative S3/S4 or Murmur
Pulmonary: Rhonchi (throughout) and Non Labored
Gastrointestinal: Soft, Non Tender, Distended (Protuberant), Normal Bowel Sounds, No Rebound and Other (Colostomy in place.)
Genito-Urinary: [place] and Clear Urine
Extremities: Negative Edema, Cyanosis or Erythema
Skin: Warm and Dry; Negative Rash or Jaundice
Psychological: Calm
.
Lab / Diagnostic Study Results
01/01/24 04:07
01/01/24 04:07
Abs Immat Gran (auto) 0.2 10^3/uL (0-0.05) H 12/31/23 08:38
Absolute Neuts (auto) 18.5 10^3/uL (1.4-6.5) H 12/31/23 08:38
Absolute Lymphs (auto) 0.9 10^3/uL (1.2-3.4) L 12/31/23 08:38
Absolute Monos (auto) 0.7 10^3/uL (0.1-0.6) H 12/31/23 08:38
Absolute Basos (auto) 0.0 10^3/uL (0-0.2) 12/31/23 08:38
Immature Gran % 0.9 % (0-0.5) H 12/31/23 08:38
Neutrophils % 90.5 % (42.2-75.2) H 12/31/23 08:38
Lymphocytes % 4.3 % (20.5-51.1) L 12/31/23 08:38
Monocytes % 3.6 % (1.7-9.3) 12/31/23 08:38
Eosinophils % 0.6 % (0-6) 12/31/23 08:38
Basophils % 0.1 % (0-2) 12/31/23 08:38
PT 16.4 Sec (11.4-14.6) H 12/31/23 08:38
INR 1.34 12/31/23 08:38
Procalcitonin 0.32 ng/ml (0.0-0.25) H 12/31/23 10:33
Microbiology Results
Micro:
12/31/23 17:55 MRSA Screen - Pending
Nose
Imaging:
01/01/2024 CT chest PE study: No pulmonary will is noted. Bilateral upper lobe pneumonia (R >L). Small to moderate bilateral pleural effusions with associated compressive atelectasis.
12/31/2023 CXR (portable): New area of patchy parenchymal opacity within the left upper lobe suggestive of new focal area of pneumonia.
Assessment / Plan
Marked leukocytosis
Pneumonia; Suspected aspiration.
Quadriplegia due to C4 spinal infarct.
Chronic sacral decubitus.
Status post diverting colostomy.
Neurogenic bladder with chronic suprapubic catheter.
History of staghorn calculus, status post extraction in the past.
MDRO
Chronic hypotension, on midodrine.
Aspiration PNA
CVA
Anxiety/depression
Recommendations:
Legionella and pneumococcal antigens negative.
Continue with empiric Zosyn for today.
I have asked Nursing to obtain deep suctioning, to be sent for sputum culture. Order has been placed.
Aspiration precautions.
Follow white count and temperature curve.
Additional recommendations as further data is returned.
--- NOTE | 2024-01-01 15:05 | PN.CDI ---
CDI
- -
CDI:
Physician Documentation Request
Admit Date: 12/31/23 10:27
Dear Doctor Silvina,
Patient admitted for aspiration pneumonia.
12/31 Hospitalist PN: 'Sepsis 2/ PNA-POA'
Laboratory Tests
12/31/23
08:38
WBC 20.4 H
12/31/23
07:20 12/31/23
14:00 12/31/23
20:21
Temp 98.7 F 97.9 F 97.9 F
12/31/23
07:16 12/31/23
07:30 12/31/23
07:45
Pulse 69 67 65
12/31/23
07:16 12/31/23
07:20 12/31/23
07:35
Resp Rate 15 18 18
The purpose of this query is not to question medical judgement, but to ensure the accuracy of the conditions reported for your patient.
There is either a lack of clinical support for this condition in the current medical record, or there is a lack of recognized standard criteria to support the condition.
The request is for one of the following:
- Additional documentation to support the condition. Indicate if this is in lieu of what may be considered standard criteria, and/or support why the standard criteria may not be present for this patient.
- A more appropriate diagnosis, reflecting the patient's condition
- Sepsis remains a known or suspected condition for this patient and is further supported by (include additional documentation in the medical record)
- Sepsis has been ruled out and a more appropriate diagnosis for this patient's condition is .
- Other (please specify)
- Unable to determine
Use of terms such as suspected, likely, concern for, or probable (associated with a specific diagnosis that is being evaluated, monitored, or treated as if it exists) are acceptable and can be coded in the inpatient setting, when documented at the
time of discharge.
Thank you,
Shyann Harding RN, BSN
CDI Specialist
Available via [place] text
Please use your independent medical judgment in providing your response.
[2024-01-01] MEDS: CARDIZEM PO ×2 (16:42→21:25)
--- NOTE | 2024-01-01 17:21 | CM ---
Patient from [facility] with Hx quadriplegia, colostomy, s/p catheter with Dx Acute hypoxic respiratory failure, likely recurrent pneumonia, sepsis, Acute to subacute impacted fracture of the right humeral neck. O2 15 L midflow. Receiving IV
Abx. Seen by wound care nurse.
Spoke with [facility]; the patient resides there in LTC on an NV bed hold. He is able to assist with his care, and uses a motorized w/c for mobility. The patient was receiving PT through [facility]. He has an air mattress. The ph
for report [phone], fax [phone].
Plan contact patient/family prior to return to SNF.
Plan return to [facility] when medically ready.
[2024-01-01] MEDS: LIORESAL 40 MG PO (21:24)
[2024-01-02] VITALS (51 sets, daily range): BP systolic 67–161; BP diastolic 39–85; BMI 22.4
[2024-01-02] MEDS: ZOSYN 50 IV ×2 (03:12→12:41)
[2024-01-02] MEDS: ProAmatine 2.5 MG PO (04:08)
--- NOTE | 2024-01-02 05:12 | PTCARENOTE ---
PT O2 has been wean to 10L Midflow. pt is a mouth breather. When pt has a surgical mask on top his O2, Pt SaO2 is > 95%. AAox3 and pleasant. Abr round. Lung sounds are coarse with a nonproductive cough. Shallow breathing. Q2 turn. Pt SBP twice was
<80, Midodrine giving. Pt SBP didn't come the second time after midodrine give at 0408. MATERIAL YARD CLERK notified. NS 250 ml bolus order. Will continue with tx plan.
[2024-01-02] MEDS: NSS 250 IV (05:37)
[2024-01-02] MEDS: XOPENEX 1.25 MG INHALANT SOLUTION INH ×3 (07:22→19:27)
[2024-01-02] MEDS: ATROVENT NEBULES 0.5 MG INH ×3 (07:22→19:27)
[2024-01-02] MEDS: CARDIZEM PO (08:10)
[2024-01-02] MEDS: LEVOPHED 250 IV (08:24)
--- NOTE | 2024-01-02 08:28 | PTCARENOTE ---
Pt received from maintenance supervisor 2nd shift. Hypotensive with SBP in the 70's. Dr. Cool notified via TT. Order received for Levo to keep SBP over 90. Hung as ordered, see MAR and intervention.
--- NOTE | 2024-01-02 09:25 | VATNOTE ---
Attempted midline start x2 due to ability to visualize the brachial vein. Vessel accessed x2 and both times unable to thread the guidewire into the vessel. Attempted PIV starts x3 and unsuccessful. Contacting 2nd VAT RN to attempt IV access.
Discussed with PCN, informed that alternative vascular access may be needed if 2nd nurse is unable to access a vessel for PIV.
--- NOTE | 2024-01-02 09:50 | VATNOTE ---
2nd RN attempted IV start and blood draw unsuccessfully. PCN notified pt would need an IJ TLC and to contact pt's attending to order.
[2024-01-02] MEDS: NEURONTIN 800 MG PO (10:24)
[2024-01-02] MEDS: ProAmatine 5 MG PO (10:24)
[2024-01-02] MEDS: LIORESAL 20 MG PO (10:24)
[2024-01-02] MEDS: ZANAFLEX 8 MG PO (10:25)
[2024-01-02] MEDS: ELIQUIS 5 MG PO ×2 (10:25→21:51)
[2024-01-02] MEDS: CELEXA 10 MG PO (10:25)
[2024-01-02] MEDS: ProAmatine PO ×3 (10:28→17:22)
--- NOTE | 2024-01-02 11:15 | PTCARENOTE ---
IR at bedside to place central line. Awaiting XR confirmation.
--- NOTE | 2024-01-02 11:17 | RESPNOTE ---
Pt rec'd on 15 L Mid-Flow, RN called for patient having drop in saturations from 87-90% and increased RR/accessory muscle use. Placed on HFNC 50L @ 100%, 94%. Pulse ox goal 89-90%. RN made aware of settings/pulse ox goal.
--- NOTE | 2024-01-02 11:30 | PTCARENOTE ---
Pt desatting to high 80's on 15L MFNC. RT at bedside, transitioned to HFNC. Sating low to mid 90's on 50L, 100%.
--- NOTE | 2024-01-02 11:34 | CM ---
CM reviewed chart
Pt remains acutely ill in the IMU with increasing high flow oxygen needs (50L)
Return SNF referral sent to [facility] via [facility]
CM will continue to follow pt for dc planning
Discharge Disposition- return [facility] for LTC
Phone- [phone] Fax- [phone]
[2024-01-02] MEDS: ZOSYN IV (11:53)
--- NOTE | 2024-01-02 11:57 | W.PN.HOSP.TC ---
Addendum entered and electronically signed by Dallas oCol MD 01/02/24 13:31:
Pulmonary correspondence noted. Pulmonary discussed with spouse
Patient with severe lethargy now likely toxic metabolic encephalopathy likely secondary polypharmacy vs. severe hypoxemia
Baclofen, tizanidine and gabapentin on hold
N.p.o.
The above status was discussed with patient spouse once again. Discussed once again in detail the patient at increased risk of decompensation and prognosis remains poor. Pulmonary discussed trach which patient has declined in the past. Per
spouse, family will visit in the evening. Spouse understand patient poor prognosis and significant risk of decompensation in the very near future.
Addendum entered and electronically signed by Dallas Cool MD 01/02/24 12:09:
Not septic on admisison
Original Note:
Today's Communication/Plan
-
HFNC
Central line placement
IV abx
wean o2 as tolerated
Started levophed
Assessment / Plan
Assessment / Plan
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
He was sent in from his NH for worsening hypoxic (was on 2L NC, now up to 10L mid flow in ED).
He denies to other symptoms.
A/P:
# Acute on chronic hypoxic respiratory failure, likely due to recurrent pneumonia
# Recent admission for aspiration pneumonia
#Sepsis 2/2 PNA -poa
#Shock likely multifactorial (Polypharmacy affecting BP) v.s low likelihood of septic shock
Pt was weaned to 2L NC at [facility].
Was on midflow and transitioned to HFNC. 100%FIO2/50L.
CXR this admission noted New area of patchy parenchymal opacity within the left upper to midlung, suggesting a new focal area of pneumonia.
CXR negative for PE.
He recently completed empiric Zosyn during hospital stay
Procal mildly elevated at 0.32
restart empiric Zosyn.
Started on modified diet but downgrade to NPO as increase in O2 requirement.
noted recent VSE 12/24 cleared for mince moist diet
Midodrine dose increased to 10mg TID
Levophed started.
Nebs with levalbuterol
Decreased airway clearance remains to be the biggest hindrance for oxygenation improvement
ID and pulm following
# Chronic suprapubic catheter POA
# Chronic urinary retention
s/p recent SPC exchange on 12/23/23
# Acute to subacute impacted fracture of the right humeral neck
per , he suffered a shoulder fracture by hitting his arm against a metal bar.
Shoulder X-ray noted healing subacute right humeral neck fracture but possible blastic osseous metastatic disease.
Finding was discussed with patient and and they preferred to NOT further investigate the blastic bone lesions.
PSA was sent, WNL at 2.6
# paroxysmal A fib from recent admission
Pt was recently started with Cardizem 30 mg TID with holding parameter
pt was recently started with Eliquis 5 mg BID
# Anemia of chronic disease
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
# Muscle Spasms due to Quadriplegia
# Hx of Bowel resection
continue ELECTRICIAN MANAGER Tizanidine, gabapentin, baclofen
Colostomy care
noted recent VSE 12/24 cleared for mince moist diet
Monitor mentation closely
# Anxiety/Depression
Pt taken off benzo recently
continue Celexa
# Chronic wounds present on arrival
# Midodrine induced hypertension
prn Hydralazine with parameters placed
�
DVT prophylaxis: Eliquis
Code: DNR/DNI
Updated spouse over the phone on 12/31 and again on 01/02/2024. Explained to spouse that patient is in critical condition with significant increase in oxygenation requirement and hypotension requiring pressors. Spouse understand the poor prognosis
and she will relay message to the family members. Understand patient is high risk of decompensation and she recommended to continue with aggressive measures for now.
Total Critical Care Time 35 minutes. I was immediately available to the patient and staff. I personally examined, reviewed labs, diagnostic images/reports, interpretations, treatment plans, discussed patient care with other providers and family
or caregivers (if patient is unable to make decisions), entered orders as appropriate and documented the medical record.
Anticipated Discharge: > 48 hours
Subjective/Interval History
-
Date of Service: January 02, 2024
Pt was hypotensive overnight
remain on 14-15L midflow with hypoxemia
Objective Data
-
Labs:
Laboratory Results
01/02/24
08:07
WBC Pending
Hgb Pending
Hct Pending
Plt Count Pending
Sodium Pending
Potassium Pending
Chloride Pending
Carbon Dioxide Pending
BUN Pending
Creatinine Pending
Glucose Pending
Calcium Pending
Vital Signs:
Vital Signs
Temp Pulse Resp BP Pulse Ox
98.2 F 75 18 71/39 94
01/02/24 11:20 01/02/24 07:27 01/02/24 07:27 01/02/24 08:10 01/02/24 11:16
I&O
01/01/24 01/02/24 01/03/24
06:59 06:59 06:59
Intake Total 350 / 350 395 / 395
Output Total 550 / 550 950 / 950
Balance -200 / -200 -555 / -555
Physical Exam
-
General: Well Developed, Comfortable, Respiratory Distress and Appears Chronically Ill
HEENT: Normocephalic, Atraumatic and Oxygen (midflow)
Respiratory: Rhonchi and Non Labored Respirations; Negative Accessory Resp Muscle Use
Cardiac: Regular Rhythm and S1/S2
GI: Soft, Nontender, Nondistended and Normal Bowel Sounds
Musculoskeletal: No Edema and Other (B/L UE contractures )
Skin: Warm
Neuro: Awake, Alert and Other (bedbound, contractures upper arms)
Psych: Calm
--- NOTE | 2024-01-02 12:04 | W.PN.PUL3 ---
Today's Communication / Plan
-
Clinically declining, now on pressors/returned on HFNC
Patient is DNR, reviewed his CT scan, we have discussed trach which he has declined
He feels he is leaning towards comfort care, I have updated the via telephone what he expressed to me today
Hospice has been discussed in the past, notes he was not ready before
I encouraged them to discuss this today
Assessment
-
63-year-old C2-4 level quadriplegic male with a history of spinal infarction, chronic dysphagia, recurrent aspiration pneumonia, chronic suprapubic catheter who was recently discharged after being treated for aspiration pneumonia [facility]-pulmonary consulted for hypoxemia/recurrent aspiration pneumonia 12/31/2023.
Respiratory failure-acute hypoxemic
Recurrent aspiration pneumonia
Basilar atelectasis from hypoventilation/mucus impaction
Leukocytosis
Mild dzpnbf-ozhtofnwzn-vlctzxtxbv 12.5
Mild hyperglycemia
Elevated procalcitonin
DNR
Conditions present prior to admission:
Recent hospitalization-discharged 12/28/2023-aspiration pneumonia
Ysdninbphsed-H0-0 level after spinal infarction-2014
Status post colostomy/suprapubic catheter/PEG
History of CVA 2012
History of cardiopulmonary arrest/sepsis 08/2021
PAF in setting of sepsis 2018
MRSA in the past
Stage IV sacral decub status post resection with diverting colostomy
Anemia of chronic disease
Chronic dysphagia.
Chronic suprapubic catheter.
Recurrent UTI
Chronic hypotension on midodrine
Recurrent aspiration pneumonia.
Bladder spasms.
Diabetes.
Right proximal humeral fracture-age unknown-possibility for metastatic disease, bone scan recommended-conservative management
Plan
Recurrent respiratory decompensation related to recurrent pneumonias-likely aspiration
Supplemental oxygen as needed
High flow oxygen, wean as tolerated
Noninvasive ventilation if needed
Patient is a DO NOT INTUBATE
We had a long conversation about trach which he has declined
I reviewed CT with patient --mostly atelectasis and mucus impaction from poor airway clearance
Airway clearance continued, Mucolytic's/nebs
Cuffolater or vest therapy if tolerated-reviewed previous hospitalization records-intermittently tolerated best, however sometimes refused and did not feel it was helping
Head of bed elevation
Speech therapy reevaluation-followed on last admission
VSE 12/25/23 noted--No penetration/aspiration or pharyngeal residue noted.
Continue IDDSI Level 6 (Soft/Bite-Sized) and Thin Liquids
Presumed aspiration PNA/hypoventilation with poor airway clearance
Check cultures if able
Urine Legionella and streptococcal antigen 12/23/2023-negative
MRSA screen 12/21/2023-negative
Urine culture 12/21/2022-Morganella Morgagni
Empiric antibiotics
Follow radiographically--has not improved
Will obtain CT chest to evaluate
DVT prophylaxis
Nutrition with aspiration precautions
Reviewed with primary team as well as nursing-goals of care discussion ongoing
He is open to comfort measures if he is continuing to decline, he openly admits that this quality of life has been poor and that he is not sure if he wants to keep going
He is DNR, confirmed he does not wish to pursue trach
I updated via phone per patient request
Diagnostic Data:
Chest x-ray 09/22/2022-elevated left hemidiaphragm, left lower lobe opacification
Chest x-ray 12/22/2023-rapid interval increase in large airspace consolidation right upper lobe, aspiration pneumonia suspected, acute to subacute impacted fracture right humeral neck
Chest x-ray 12/27/2023 opacification right middle lobe again with some volume loss, bilateral upper extremity obscured the mid to lower lungs bilaterally
Chest x-ray 12/31/2023-new area of patchy opacification left upper to midlung field suggesting new pneumonia, right proximal humeral fracture noted dating back to December 22, 2023 but not present December 21, 2022
CT chest 09/22/2022-resolution of previous mucous plugging in the left lower lobe, there remains near complete collapse of the left lower lobe, small to moderate loculated pleural effusion
-----
Total time spent on this encounter __56__ includes review of history, physical exam, medications, laboratory data, personal review of imaging, extensive review of outpatient records, discussion with care team and respiratory therapy.
Subjective Data
-
Date of Service:
Date of Service: January 02, 2024
Chief Complaint: Pulmonary Follow Up
Subjective:
declining this AM, needs pressors
back to NC
he is DNR, confirmed
Objective Data
Data Reviewed
Vital Signs / I&O / Oxygen:
Vital Signs
Temp Pulse Resp BP Pulse Ox
98.2 F 75 18 71/39 94
01/02/24 11:20 01/02/24 07:27 01/02/24 07:27 01/02/24 08:10 01/02/24 11:16
Intake and Output
01/01/24 01/02/24 01/03/24
06:59 06:59 06:59
Intake Total 350 / 350 395 / 395
Output Total 550 / 550 950 / 950
Balance -200 / -200 -555 / -555
SaO2 94
Nasal Cannula flow liters per 50
minute
Physical Exam
General: Comfortable and Other (NAD, chronically ill appearing)
HEENT: Normocephalic, Anicteric and Moist Mucous Membranes
Cardiovascular: S1-S2 and Regular Rhythm
Respiratory: Crackles, Rhonchi and Non-Labored Respirations
GI: Non Distended, Non Tender and Other (ostomy present, bandages)
Neurology: Awake, Alert, AO x 3, Lethargic and Other (quad)
Skin: Warm, Dry and Good Color
Labs/Micro/Reports
Microbiology
12/31/23 17:55 Nose MRSA Screen - Final
No Methicillin Resistant Staphylococcus aureus isolated.
--- NOTE | 2024-01-02 12:13 | PN.CDI ---
CDI
- -
CDI:
Physician Documentation Request
Admit Date: 12/31/23 10:27
Dear Doctor Silvina,
Patient admitted for pneumonia.
12/31 Wound Care Note: 'L ischial almost heal/newly healed pressure injury which was originally a stage 4 pressure injury. L upper ear crease stage 2 pressure injury d/t o2 tubing/strap.'
Physician documentation of the type and location of wounds is required for compliant documentation. Based on the above clinical findings and your assessment, please provide the following in your progress note:
1. Location of the ulcer/wound, including laterality.
2. Type (etiology) of ulcer/wound:
- Diabetic ulcer
- Arterial (ischemic) ulcer
- Traumatic wound
- Venous stasis ulcer
- Pressure (decubitus) ulcer
- Non-healing surgical wound
- Other
- Unable to determine
3. For a non-pressure ulcer, please indicate the depth/severity:
- Limited to the breakdown of skin
- With fat layer exposed
- With necrosis of muscle
- With necrosis of bone
- Other
- Unable to determine
4. If a pressure ulcer, please also include the stage* of the ulcer:
- Stage 1 - Skin intact, non-blanchable redness
- Stage 2 - Partial thickness loss of dermis, includes intact or open blister
- Stage 3 - Full thickness tissue not including bone, tendon or muscle
- Stage 4 - Full thickness tissue loss, including exposed bone, tendon or muscle
- Unstageable - Full thickness loss in which the base of the ulcer is covered by slough (yellow, [place], chung, green or brown) and/or eschar ([place], brown or black) in the wound bed.
- Unable to determine
Use of terms such as suspected, likely, concern for, or probable (associated with a specific diagnosis that is being evaluated, monitored, or treated as if it exists) are acceptable and can be coded in the inpatient setting, when documented at the
time of discharge.
Thank you,
Shyann Harding RN, BSN
CDI Specialist
Available via [place] text
Please use your independent medical judgment in providing your response.
*Source: National Pressure Ulcer Advisory Panel (NPUAP)
--- NOTE | 2024-01-02 12:44 | PTCARENOTE ---
IJ line okay to use per IRAD. Labs drawn and sent. IV antibiotics and levo infusing. Pt with increasing lethargy thoughtful the day; Dr. Cool notified via TT. Made NPO and PO medications held d/t aspiration risk.
[2024-01-02 12:49] LABS: Glucose - Point of Care 167 mg/dl (70-99)
[2024-01-02 12:50] LABS: % Basophils 0.2 % (0-2); % Eosinophils 0.6 % (0-6); % Immature Granulocytes 0.8 % (0-0.5); % Lymphocytes 1.7 % (20.5-51.1); % Neutrophils 92.7 % (42.2-75.2); Absolute Basophils 0.1 10^3/uL (0-0.2); Absolute Eosinophils 0.2 10^3/uL (0-0.7); Absolute Immature Granulocytes 0.2 10^3/uL (0-0.05); Absolute Lymphocytes 0.5 10^3/uL (1.2-3.4); Absolute Monocytes 1.1 10^3/uL (0.1-0.6); Absolute Neutrophils 25.3 10^3/uL (1.4-6.5); Hematocrit 36.7 % (39.0-52.0); Hemoglobin 11.7 g/dL (13.0-18.0); Mean Corp Hgb Conc. 31.9 g/dL (33.0-37.0); Mean Corpuscular Hgb 28.1 pg (27.0-31.0); Mean Platelet Volume 9.1 fL (7.4-10.4); Nucleated Red Blood Cells % 0 % (-); Platelet Count 351 10^3/uL (130-400); Red Blood Cell Count 4.17 10^6/uL (4.70-6.10); Red Cell Dist. Width 15.7 % (11.5-14.5); White Blood Cell Count 27.3 10^3/uL (4.8-10.8)
[2024-01-02 13:08] LABS: Blood Urea Nitrogen 18 mg/dl (9-20); Calcium 8.7 mg/dl (8.4-10.2); Carbon Dioxide 27 mmol/L (22-30); Chloride 101 mmol/L (98-107); Estimated Creatinine Clearance 106 ml/min; Glucose 172 mg/dl (70-99); Potassium 3.6 mmol/L (3.5-5.1); Sodium 138 mmol/L (135-145); eGFR > 60.00
--- NOTE | 2024-01-02 14:00 | CHAP ---
Fr. Joo Guzmán of [facility] in [place] gave the Sacrament of the Sick and an Apostolic Pardon to Rubens Diezdelvindemar. Time uncertain.
--- NOTE | 2024-01-02 14:38 | W.PN.ID1 ---
Date of Service
Date of Service: January 02, 2024
Today's Communication
Continue antibiotics. See below�
Assessment / Plan
Marked leukocytosis
Pneumonia
- suspected recurrent aspiration.
Respiratory failure
- Currently on mid flow O2
Hypotension; now on pressors
Quadriplegia due to C4 spinal infarct.
Chronic sacral decubitus.
Hx diverting colostomy.
Neurogenic bladder with chronic suprapubic catheter.
History of staghorn calculus, status post extraction in the past.
MDRO
Chronic hypotension, on midodrine.
Aspiration PNA
CVA
Anxiety/depression
Recommendations:
Legionella and pneumococcal antigens negative.
Given worsening leukocytosis, will broaden to meropenem.
Sputum culture has been ordered; no sample collected as of today.
Continue with aspiration precautions.
Follow white count and temperature curve.
Additional recommendations as further data is returned.
Per nursing, family to meet later today to decide on goals of care and potential withdrawal of care.
Chief Complaint
-: Clinical Sepsis and Pneumonia
Subjective / Review of Systems
Patient seen and examined. Chart reviewed, events since yesterday noted. Patient currently on pressor therapy, and respiratory status has declined.
Vital Signs / Physical Exam
Vital Signs
Vital Signs
Temp Pulse Resp BP Pulse Ox
98.2 F 77 21 139/80 98
01/02/24 11:20 01/02/24 12:00 01/02/24 12:00 01/02/24 11:45 01/02/24 13:28
Physical Exam
Constitutional: Acutely Ill and Chronically Ill
Cardiovascular: S1/S2; Negative S3/S4
Pulmonary: Rhonchi and Other (Mildly labored)
Gastrointestinal: Soft, Non Distended, Decreased Bowel Sounds and No Rebound
Skin: Negative Rash or Jaundice
Neurological: Other (Minimally responsive)
Objective Data
Lab Data
Lab Results
01/02/24 12:29
01/02/24 12:29
PT 16.4 Sec (11.4-14.6) H 12/31/23 08:38
INR 1.34 12/31/23 08:38
Estimated Creat Clear 106 ml/min 01/02/24 12:29
Total Bilirubin 0.5 mg/dl (0.2-1.3) 12/31/23 08:38
AST 20 U/L (17-59) 12/31/23 08:38
ALT 31 U/L (0-50) 12/31/23 08:38
Alkaline Phosphatase 83 U/L (38-126) 12/31/23 08:38
Most recent labs reviewed.
Micro Results:
12/31/23 17:55 MRSA Screen - Final
Nose No Methicillin Resistant Staphylococcus aureus isolated.
Imaging:
01/01/2024 CT chest PE study: No pulmonary will is noted. Bilateral upper lobe pneumonia (R >L). Small to moderate bilateral pleural effusions with associated compressive atelectasis.
12/31/2023 CXR (portable): New area of patchy parenchymal opacity within the left upper lobe suggestive of new focal area of pneumonia.
--- NOTE | 2024-01-02 15:35 | PTCARENOTE ---
Pt's family at bedside, emotional support provided. Pastoral care in to see pt and family.
--- NOTE | 2024-01-02 15:43 | CHAP ---
Addendum entered by Laura Ortega 01/03/24 12:45:
Fr. Guzmán provided Sacrament of the Sick for Mr. Burkett at his family's request.
Original Note:
produce inspector request relayed to Fr. Guzmán, Monday produce inspector, and Monsignor Grajeda, Monday produce inspector. Awaiting reply.
[2024-01-02] MEDS: STERILE WATER FOR INJECTION 10 ML IV ×2 (17:56→21:51)
[2024-01-02] MEDS: MERREM 500 MG IV ×2 (17:56→21:51)
[2024-01-03] VITALS (52 sets, daily range): BP systolic 90–162; BP diastolic 57–95; BMI 21.9
[2024-01-03] MEDS: TYLENOL 650 MG PO ×2 (02:29→08:24)
[2024-01-03] MEDS: MERREM 500 MG IV ×4 (04:30→21:29)
[2024-01-03] MEDS: STERILE WATER FOR INJECTION 10 ML IV ×4 (04:31→21:29)
[2024-01-03 04:59] LABS: % Eosinophils 0.5 % (0-6); % Immature Granulocytes 0.6 % (0-0.5); % Lymphocytes 2.9 % (20.5-51.1); Absolute Eosinophils 0.1 10^3/uL (0-0.7); Absolute Immature Granulocytes 0.1 10^3/uL (0-0.05); Absolute Lymphocytes 0.6 10^3/uL (1.2-3.4); Absolute Monocytes 0.9 10^3/uL (0.1-0.6); Absolute Neutrophils 19.8 10^3/uL (1.4-6.5); Hematocrit 34.8 % (39.0-52.0); Hemoglobin 11.1 g/dL (13.0-18.0); Mean Corp Hgb Conc. 31.9 g/dL (33.0-37.0); Mean Corpuscular Hgb 29.1 pg (27.0-31.0); Mean Corpuscular Volume 91.1 fL (80.0-94.0); Mean Platelet Volume 9.4 fL (7.4-10.4); Nucleated Red Blood Cells % 0 % (-); Platelet Count 295 10^3/uL (130-400); Red Blood Cell Count 3.82 10^6/uL (4.70-6.10); Red Cell Dist. Width 15.7 % (11.5-14.5); White Blood Cell Count 21.5 10^3/uL (4.8-10.8)
[2024-01-03 05:25] LABS: Blood Urea Nitrogen 14 mg/dl (9-20); Calcium 8.5 mg/dl (8.4-10.2); Carbon Dioxide 27 mmol/L (22-30); Chloride 103 mmol/L (98-107); Estimated Creatinine Clearance 103 ml/min; Glucose 98 mg/dl (70-99); Potassium 3.3 mmol/L (3.5-5.1); Sodium 143 mmol/L (135-145); eGFR > 60.00
--- NOTE | 2024-01-03 06:40 | PTCARENOTE ---
Pt more awake and alert than day shift. Pt remained on Levo 1mcg over night. Tap call gastelum within reach. Assessment care and vitals as charted.
[2024-01-03] MEDS: ATROVENT NEBULES 0.5 MG INH ×3 (07:29→19:29)
[2024-01-03] MEDS: XOPENEX 1.25 MG INHALANT SOLUTION INH ×3 (07:29→19:29)
[2024-01-03] MEDS: NEURONTIN 800 MG PO ×3 (08:15→21:29)
[2024-01-03] MEDS: ProAmatine 10 MG PO ×3 (08:15→17:39)
[2024-01-03] MEDS: ELIQUIS 5 MG PO ×2 (08:16→21:29)
--- NOTE | 2024-01-03 09:15 | PTOTSP ---
Speech Language Pathology
Pt seen for dysphagia tx. Awake upon arrival, stating he is feeling better. P.O. trials of puree, regular solids, and thin liquids provided. Slightly prolonged mastication of regular solids, as pt requested to leave dentures out for minimal trial
on evaluation. Wet voice initially noted with first sip of thin liquid, which he was able to clear with a cued throat clear, although throat clear weak. Suspect related to first sip and secretions from NPO status. No further wet voice noted.
Pt had recent VSE at with no penetration or aspiration. Pt is at higher risk for aspiration at this time given respiratory status and 02 needs coupled with overall medical status.
Recommend:
(1) Initiate baseline diet of IDDSI Level 6 (Soft/Bite-Sized) and Thin Liquids
(2) Aspiration precautions: sit upright, single sips, full assist, only provide P.O. if Sp02 >90% and RR <30
(3) If wet voice noted with P.O. intake, make NPO
(4) [employer] to continue to follow
--- NOTE | 2024-01-03 10:32 | W.PN.ID1 ---
Date of Service
Date of Service: January 03, 2024
Today's Communication
Continue meropenem.
Assessment / Plan
Marked leukocytosis
Pneumonia
- suspected recurrent aspiration.
Respiratory failure
- Currently on mid flow O2
Hypotension; now on pressors
Quadriplegia due to C4 spinal infarct.
Chronic sacral decubitus.
Hx diverting colostomy.
Neurogenic bladder with chronic suprapubic catheter.
History of staghorn calculus, status post extraction in the past.
MDRO
Chronic hypotension, on midodrine.
Aspiration PNA
CVA
Anxiety/depression
Recommendations:
Legionella and pneumococcal antigens negative.
Patient broadened to meropenem 01/01.
Leukocytosis improved today.
Sputum unable to be collected.
Continue with aspiration precautions.
Follow white count and temperature curve.
Additional recommendations as further data is returned.
����������������������������������������������������������
Chief Complaint
-: Clinical Sepsis and Pneumonia
Subjective / Review of Systems
Patient seen and examined. Today, noted to be much more awake and conversant. Now off pressors.
Vital Signs / Physical Exam
Vital Signs
Vital Signs
Temp Pulse Resp BP Pulse Ox
98.4 F 107 20 120/69 95
01/03/24 10:00 01/03/24 08:15 01/03/24 07:30 01/03/24 08:15 01/03/24 08:59
Physical Exam
Constitutional: No Acute Distress, Comfortable, Acutely Ill and Chronically Ill
Eyes: No Conjunctival Hemorrhage
Cardiovascular: S1/S2; Negative S3/S4
Pulmonary: Rhonchi, Non Labored and Other (Decreased breath sounds in bases.)
Gastrointestinal: Soft, Non Distended, Decreased Bowel Sounds and No Rebound
Skin: Negative Rash or Jaundice
Neurological: Awake, Alert and Other (Minimally responsive)
Psychological: Calm
Objective Data
Lab Data
Lab Results
01/03/24 04:37
01/03/24 04:37
PT 16.4 Sec (11.4-14.6) H 12/31/23 08:38
INR 1.34 12/31/23 08:38
Estimated Creat Clear 103 ml/min 01/03/24 04:37
Total Bilirubin 0.5 mg/dl (0.2-1.3) 12/31/23 08:38
AST 20 U/L (17-59) 12/31/23 08:38
ALT 31 U/L (0-50) 12/31/23 08:38
Alkaline Phosphatase 83 U/L (38-126) 12/31/23 08:38
Most recent labs reviewed.
Micro Results:
12/31/23 17:55 MRSA Screen - Final
Nose No Methicillin Resistant Staphylococcus aureus isolated.
Imaging:
01/01/2024 CT chest PE study: No pulmonary will is noted. Bilateral upper lobe pneumonia (R >L). Small to moderate bilateral pleural effusions with associated compressive atelectasis.
12/31/2023 CXR (portable): New area of patchy parenchymal opacity within the left upper lobe suggestive of new focal area of pneumonia.
Care Review
Plan reviewed with: Nurse
[2024-01-03] MEDS: KCL 270 MEQ IV (10:53)
--- NOTE | 2024-01-03 11:35 | W.PN.PUL3 ---
Today's Communication / Plan
-
Off pressors, but still remains on HFNC and overall unchanged
Can try PAP therapy to see if this helps, this is limited use given his quad status
Continue supportive care
Diet advanced by speech
We discussed his prognosis and QoL again, he was open to consult to hospice
Assessment
-
63-year-old C2-4 level quadriplegic male with a history of spinal infarction, chronic dysphagia, recurrent aspiration pneumonia, chronic suprapubic catheter who was recently discharged after being treated for aspiration pneumonia and returns from
the half-way with worsening hypoxemia-pulmonary consulted for hypoxemia/recurrent aspiration pneumonia 12/31/2023.
Respiratory failure-acute hypoxemic
Recurrent aspiration pneumonia
Basilar atelectasis from hypoventilation/mucus impaction
Leukocytosis
Mild zqbzsb-vunbkplbmv-epjsuzzeyj 12.5
Mild hyperglycemia
Elevated procalcitonin
DNR
Conditions present prior to admission:
Recent hospitalization-discharged 12/28/2023-aspiration pneumonia
Iikdydwquceg-O3-6 level after spinal infarction-2014
Status post colostomy/suprapubic catheter/PEG
History of CVA 2012
History of cardiopulmonary arrest/sepsis 08/2021
PAF in setting of sepsis 2018
MRSA in the past
Stage IV sacral decub status post resection with diverting colostomy
Anemia of chronic disease
Chronic dysphagia.
Chronic suprapubic catheter.
Recurrent UTI
Chronic hypotension on midodrine
Recurrent aspiration pneumonia.
Bladder spasms.
Diabetes.
Right proximal humeral fracture-age unknown-possibility for metastatic disease, bone scan recommended-conservative management
Plan
Recurrent respiratory decompensation related to recurrent pneumonias-likely aspiration
Supplemental oxygen as needed
High flow oxygen, wean as tolerated
Noninvasive ventilation if needed
Patient is a DO NOT INTUBATE
We had a long conversation about trach which he has declined
I reviewed CT with patient --mostly atelectasis and mucus impaction from poor airway clearance
Airway clearance continued, Mucolytic's/nebs
Cufflater or vest therapy if tolerated-reviewed previous hospitalization records-intermittently tolerated best, however sometimes refused and did not feel it was helping
Head of bed elevation
Trial of PAP today
Speech therapy reevaluation-followed on last admission
VSE 12/25/23 noted--No penetration/aspiration or pharyngeal residue noted.
Continue IDDSI Level 6 (Soft/Bite-Sized) and Thin Liquids
Presumed aspiration PNA/hypoventilation with poor airway clearance
Check cultures if able
Urine Legionella and streptococcal antigen 12/23/2023-negative
MRSA screen 12/21/2023-negative
Urine culture 12/21/2022-Morganella Morgagni
Empiric antibiotics
Follow radiographically--has not improved
Will obtain CT chest to evaluate
DVT prophylaxis
Nutrition with aspiration precautions
Reviewed with primary team as well as nursing-goals of care discussion ongoing
Family Discussions
01/03/24- Reviewed prognosis again, he seems unsure. He has not spoken to his he states. He was open to hospice consult, order placed.
Rory 01/02/24- He is open to comfort measures if he is continuing to decline, he openly admits that this quality of life has been poor and that he is not sure if he wants to keep going
He is DNR, confirmed he does not wish to pursue trach
I updated via phone per patient request
Diagnostic Data:
Chest x-ray 09/22/2022-elevated left hemidiaphragm, left lower lobe opacification
Chest x-ray 12/22/2023-rapid interval increase in large airspace consolidation right upper lobe, aspiration pneumonia suspected, acute to subacute impacted fracture right humeral neck
Chest x-ray 12/27/2023 opacification right middle lobe again with some volume loss, bilateral upper extremity obscured the mid to lower lungs bilaterally
Chest x-ray 12/31/2023-new area of patchy opacification left upper to midlung field suggesting new pneumonia, right proximal humeral fracture noted dating back to December 22, 2023 but not present December 21, [address]22
CT chest 09/22/2022-resolution of previous mucous plugging in the left lower lobe, there remains near complete collapse of the left lower lobe, small to moderate loculated pleural effusion
-----
Total time spent on this encounter __51__ includes review of history, physical exam, medications, laboratory data, personal review of imaging, extensive review of outpatient records, discussion with care team and respiratory therapy.
Subjective Data
-
Date of Service:
Date of Service: January 03, 2024
Chief Complaint: Pulmonary Follow Up
Subjective:
weaned off pressors
remains on HFNC
no changes clinically
Objective Data
Data Reviewed
Vital Signs / I&O / Oxygen:
Vital Signs
Temp Pulse Resp BP Pulse Ox
98.1 F 89 27 124/81 94
01/03/24 11:34 01/03/24 11:00 01/03/24 11:00 01/03/24 11:00 01/03/24 11:26
Intake and Output
01/02/24 01/03/24 01/04/24
06:59 06:59 06:59
Intake Total 395 / 395
Output Total 950 / 950 900 / 900
Balance -555 / -555 -885 / -885
SaO2 94
Nasal Cannula flow liters per 40
minute
Physical Exam
General: Comfortable and Other (NAD, chronically ill appearing)
HEENT: Normocephalic, Anicteric and Moist Mucous Membranes
Cardiovascular: S1-S2 and Regular Rhythm
Respiratory: Crackles, Rhonchi and Non-Labored Respirations
GI: Non Distended, Non Tender and Other (ostomy present, bandages)
Neurology: Awake, Alert, AO x 3, Lethargic and Other (quad)
Skin: Warm, Dry and Good Color
Labs/Micro/Reports
Lab Data
01/03/24 04:37
01/03/24 04:37
Microbiology
12/31/23 17:55 Nose MRSA Screen - Final
No Methicillin Resistant Staphylococcus aureus isolated.
--- NOTE | 2024-01-03 13:02 | W.PN.HOSP.TC ---
Today's Communication/Plan
-
IV meropenem
wean o2 as tolerated
cont gabapentin but monitor mentation closely
Restart diet but monitor o2 closely
Prognosis extremely poor
Assessment / Plan
Assessment / Plan
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
He was sent in from his NH for worsening hypoxic (was on 2L NC, now up to 10L mid flow in ED).
He denies to other symptoms.
A/P:
# Acute on chronic hypoxic respiratory failure, likely due to recurrent pneumonia
# Recent admission for aspiration pneumonia
# Pneumonia present on admission. Not septic on admission
#Shock likely multifactorial (Polypharmacy affecting BP) v.s low likelihood of septic shock
Pt was weaned to 2L NC at [place].
Was on midflow and transitioned to HFNC. Mild decrease in FIO2 however, remains persistent hypoxic requiring HFNC.
CXR this admission noted New area of patchy parenchymal opacity within the left upper to midlung, suggesting a new focal area of pneumonia.
CT chest negative for PE.
He recently completed empiric Zosyn during hospital stay
Procal mildly elevated at 0.32
Zosyn has been transitioned off to Meropenem. Spiked fever earlier today.
Speech re-evaluated on 01/02-IDDS6. However, improvement was seen while patient was NPO. Need to closely monitor O2 status with restarting of diet.
noted recent VSE 12/24 cleared for mince moist diet
Midodrine dose increased to 10mg TID
Levophed started and wean off as tolerated
Cont with bronchodilators
Decreased airway clearance remains to be the biggest hindrance for oxygenation improvement
ID and pulm following
#Dysphagia
Patient with mild decrease in FiO2 which is only noticed during patient being NPO. Need to closely monitor oxygenation status is diuresis restarted
Speech recommending IDDSI 6 but only provide P.O. if Sp02 >90% and RR <30
# Chronic suprapubic catheter POA
# Chronic urinary retention
s/p recent SPC exchange on 12/23/23
# Acute to subacute impacted fracture of the right humeral neck
per , he suffered a shoulder fracture by hitting his arm against a metal bar.
Shoulder X-ray noted healing subacute right humeral neck fracture but possible blastic osseous metastatic disease.
Finding was discussed with patient and and they preferred to NOT further investigate the blastic bone lesions.
PSA was sent, WNL at 2.6
#Paroxysmal A fib from recent admission
Pt was recently started with Cardizem 30 mg TID with holding parameter
pt was recently started with Eliquis 5 mg BID
# Anemia of chronic disease
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
# Muscle Spasms due to Quadriplegia
# Hx of Bowel resection
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
Hold baclofen and Tizanidine
Colostomy care
noted recent VSE 12/24 cleared for mince moist diet
Monitor mentation closely
# Anxiety/Depression
Pt taken off benzo recently
continue Celexa
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
# L upper ear crease stage 2 pressure injury due to oxygen tubing
wound care
# Midodrine induced hypertension
prn Hydralazine with parameters placed
�
DVT prophylaxis: Eliquis
Code: DNR/DNI
Updated spouse over the phone on 12/31 and again on 01/02/2024. Explained to spouse that patient is in critical condition with significant increase in oxygenation requirement and hypotension requiring pressors. Spouse understand the poor prognosis
and she will relay message to the family members. Understand patient is high risk of decompensation and she recommended to continue with aggressive measures for now.
Prognosis extremely poor-multiple hospitalization for similar situation.
Anticipated Discharge: > 48 hours
Subjective/Interval History
-
Date of Service: January 03, 2024
decrease in FIO2 requirement
more awake this am
levophed just turned off
Objective Data
-
Labs:
Laboratory Results
01/03/24
04:37
WBC 21.5 H
Hgb 11.1 L
Hct 34.8 L
Plt Count 295
Sodium 143
Potassium 3.3 L
Chloride 103
Carbon Dioxide 27
BUN 14
Creatinine 0.3 L
Glucose 98
Calcium 8.5
Vital Signs:
Vital Signs
Temp Pulse Resp BP Pulse Ox
98.1 F 89 27 124/81 94
01/03/24 11:34 01/03/24 11:00 01/03/24 11:00 01/03/24 11:00 01/03/24 11:26
I&O
01/02/24 01/03/24 01/04/24
06:59 06:59 06:59
Intake Total 395 / 395 15 / 15
Output Total 950 / 950 900 / 900
Balance -555 / -555 -885 / -885
Data Reviewed
-
Total Time Spent with Patient (in minutes): 56
--- NOTE | 2024-01-03 13:35 | CM ---
Patient from [facility] with Hx quadriplegia, colostomy, s/p catheter with Dx Acute hypoxic respiratory failure, likely recurrent pneumonia, sepsis, Acute to subacute impacted fracture of the right humeral neck. High flow O2. Receiving IV Abx,
Levophed gtt.
CM Consult: Hospice
Spoke with patient's Kasia;
explained hospice philosophy & benefits.
Kasia would like to speak with sand sifter today to gain more information about patient's current status, prognosis & life expectancy, and then decide on hospice.
Referral to [facility]. Eboni made aware deciding if she wants to have hospice consult.
Plan follow up re; hospice.
--- NOTE | 2024-01-03 13:44 | RESPNOTE ---
attempted bipap as order with settings of 12/6 keeping tidal volume >350 and 15 lpm of bleed in 02.
pt tolerated bipap for about 15 min and stated i can't do this for a long time.
placed pt back on High flow with settings 40lpm and 40% . pt's 02 sat of 95% noted on this settings.
RN made aware .
--- NOTE | 2024-01-03 15:07 | PTCARENOTE ---
Pt presents as assessed. Awake and alert, conversant throughout the day. Levo off at approx 10:00; BP remains stable at this time. RT attempted bipap briefly, pt unable to tolerate. Remains on HFNC with sats in the mid 90's.
--- NOTE | 2024-01-03 15:19 | HOSPNOTE ---
Spoke with spouse she would like to speak with pulmonary. I believe the spouse has unrealistic expectations. Will await guidance on how to proceed. From the notes most likely the patient would have to remain here with comfort/hospice.
[2024-01-03] MEDS: DESENEX/MITRAZOL/ZEASORB 1 APPLIC TOPICAL (21:41)
[2024-01-04] VITALS (19 sets, daily range): BP systolic 70–180; BP diastolic 44–105; BMI 22.2
--- NOTE | 2024-01-04 03:34 | PTCARENOTE ---
Addendum entered by Minda Grijalva RN 01/04/24 04:39:
Pt wound care completed. Pt feeling warm Temp 100.5 ax. Night [employer] placed order for [employer].
Original Note:
Through out the night Pt needing high flow turned up to maintain 90%. Pt sounding moist but with weak cough unable to move secretions. oral suction helping minimally. Pt states 'no pain' and when asked if he feels breathing is hard or cant catch
breath Pt denies. Tap call gastelum within place and working. Assessment care and vitals as charted.
[2024-01-04] MEDS: REFRESH CELLUVISC GEL 1 DROPS BOTH EYES ×2 (03:55→08:37)
[2024-01-04] MEDS: STERILE WATER FOR INJECTION 10 ML IV ×2 (03:56→10:02)
[2024-01-04] MEDS: DESENEX/MITRAZOL/ZEASORB 1 APPLIC TOPICAL (03:56)
[2024-01-04] MEDS: MERREM 500 MG IV ×2 (03:56→10:02)
[2024-01-04 04:11] LABS: % Basophils 0.1 % (0-2); % Eosinophils 0.5 % (0-6); % Immature Granulocytes 0.6 % (0-0.5); % Lymphocytes 3.7 % (20.5-51.1); % Monocytes 4.8 % (1.7-9.3); % Neutrophils 90.3 % (42.2-75.2); Absolute Eosinophils 0.1 10^3/uL (0-0.7); Absolute Immature Granulocytes 0.1 10^3/uL (0-0.05); Absolute Lymphocytes 0.6 10^3/uL (1.2-3.4); Absolute Monocytes 0.8 10^3/uL (0.1-0.6); Hematocrit 31.8 % (39.0-52.0); Hemoglobin 9.9 g/dL (13.0-18.0); Mean Corp Hgb Conc. 31.1 g/dL (33.0-37.0); Mean Corpuscular Hgb 27.6 pg (27.0-31.0); Mean Corpuscular Volume 88.6 fL (80.0-94.0); Mean Platelet Volume 9.3 fL (7.4-10.4); Nucleated Red Blood Cells % 0 % (-); Platelet Count 299 10^3/uL (130-400); Red Blood Cell Count 3.59 10^6/uL (4.70-6.10); Red Cell Dist. Width 15.6 % (11.5-14.5); White Blood Cell Count 16.6 10^3/uL (4.8-10.8)
[2024-01-04] MEDS: OFIRMEV 100 IV (04:19)
[2024-01-04 04:39] LABS: Blood Urea Nitrogen 15 mg/dl (9-20); Calcium 8.7 mg/dl (8.4-10.2); Carbon Dioxide 29 mmol/L (22-30); Chloride 103 mmol/L (98-107); Estimated Creatinine Clearance 103 ml/min; Glucose 111 mg/dl (70-99); Potassium 4.4 mmol/L (3.5-5.1); Sodium 140 mmol/L (135-145); eGFR > 60.00
[2024-01-04] MEDS: ATROVENT NEBULES 0.5 MG INH (07:13)
[2024-01-04] MEDS: XOPENEX 1.25 MG INHALANT SOLUTION INH (07:13)
[2024-01-04] MEDS: ELIQUIS 5 MG PO (08:34)
[2024-01-04] MEDS: NEURONTIN 800 MG PO (08:35)
[2024-01-04] MEDS: ProAmatine 10 MG PO (08:35)
[2024-01-04] MEDS: TYLENOL 650 MG PO (08:36)
--- NOTE | 2024-01-04 08:38 | W.PN.ID1 ---
Date of Service
Date of Service: January 04, 2024
Today's Communication
Continue with meropenem.
Assessment / Plan
Leukocytosis
Pneumonia
- suspected recurrent aspiration.
Respiratory failure
- Currently on high flow O2
Hypotension; now on pressors
Quadriplegia due to C4 spinal infarct.
Chronic sacral decubitus.
Hx diverting colostomy.
Neurogenic bladder with chronic suprapubic catheter.
History of staghorn calculus, status post extraction in the past.
MDRO
Chronic hypotension, on midodrine.
Aspiration PNA
CVA
Anxiety/depression
Recommendations:
Legionella and pneumococcal antigens negative.
Patient broadened to meropenem 01/01.
Leukocytosis improved today.
Sputum unable to be collected.
Continue meropenem.
Continue with aspiration precautions.
Follow white count and temperature curve.
����������������������������������������������������������
Chief Complaint
-: Clinical Sepsis and Pneumonia
Subjective / Review of Systems
Patient seen and examined. Low-grade temperature noted overnight. Patient reports breathing is comfortable. Remains on high flow O2.
Review of Systems: Fever
Vital Signs / Physical Exam
Vital Signs
Vital Signs
Temp Pulse Resp BP Pulse Ox
98.2 F 90 16 95/63 89
01/04/24 07:13 01/04/24 07:13 01/04/24 07:13 01/04/24 06:03 01/04/24 07:13
Tmax 100.4
Physical Exam
Constitutional: No Acute Distress, Comfortable, Acutely Ill and Chronically Ill
Eyes: No Conjunctival Hemorrhage and Sclera Anicteric
Cardiovascular: Regular Rate and S1/S2; Negative S3/S4
Pulmonary: Rhonchi, Non Labored and Other (Decreased breath sounds in bases. High flow O2 in place.)
Gastrointestinal: Soft, Non Distended, Decreased Bowel Sounds and No Rebound
Extremities: Negative Edema
Skin: Negative Rash or Jaundice
Neurological: Awake, Alert and Other (Minimally responsive)
Psychological: Calm
Objective Data
Lab Data
Lab Results
01/04/24 04:00
01/04/24 04:00
PT 16.4 Sec (11.4-14.6) H 12/31/23 08:38
INR 1.34 12/31/23 08:38
Estimated Creat Clear 103 ml/min 01/04/24 04:00
Total Bilirubin 0.5 mg/dl (0.2-1.3) 12/31/23 08:38
AST 20 U/L (17-59) 12/31/23 08:38
ALT 31 U/L (0-50) 12/31/23 08:38
Alkaline Phosphatase 83 U/L (38-126) 12/31/23 08:38
Most recent labs reviewed.
Micro Results:
12/31/23 17:55 MRSA Screen - Final
Nose No Methicillin Resistant Staphylococcus aureus isolated.
Imaging:
01/01/2024 CT chest PE study: No pulmonary embolism noted. Bilateral upper lobe pneumonia (R >L). Small to moderate bilateral pleural effusions with associated compressive atelectasis.
12/31/2023 CXR (portable): New area of patchy parenchymal opacity within the left upper lobe suggestive of new focal area of pneumonia.
--- NOTE | 2024-01-04 09:51 | PN.CDI ---
CDI
- -
CDI:
Physician Documentation Request
Admit Date: 12/31/23 10:27
Dear Doctor Silvina,
Patient admitted for pneumonia.
01/02 Potassium level: 3.3
01/02 Potassium chloride 40 meq IV administered
Based on the above, could you clarify in the progress notes, the appropriate diagnosis, if significant, that supports the above abnormalities and additional evaluation, monitoring and/or treatment rendered:
Hypokalemia
Abnormal lab value insignificant
Other
Use of terms such as suspected, likely, concern for, or probable (associated with a specific diagnosis that is being evaluated, monitored, or treated as if it exists) are acceptable and can be coded in the inpatient setting, when documented at the
time of discharge.
Thank you,
Shyann Harding RN, BSN
CDI Specialist
Available via [place] text
Please use your independent medical judgment in providing your response.
--- NOTE | 2024-01-04 09:58 | W.PN.HOSP.TC ---
Today's Communication/Plan
-
Hospice to discuss with spouse
Continue with current measures
Prognosis poor
Assessment / Plan
Assessment / Plan
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
He was sent in from his NH for worsening hypoxic (was on 2L NC, now up to 10L mid flow in ED).
He denies to other symptoms.
A/P:
# Acute on chronic hypoxic respiratory failure, likely due to recurrent aspiration pneumonia/pneumonitis
# Recent admission for aspiration pneumonia
# Pneumonia present on admission. Not septic on admission
#Shock likely multifactorial (Polypharmacy affecting BP) v.s low likelihood of septic shock
Pt was weaned to 2L NC at ID.
Was on midflow and transitioned to HFNC. Persistent hypoxic requring HFNC
CXR this admission noted New area of patchy parenchymal opacity within the left upper to midlung, suggesting a new focal area of pneumonia.
CT chest negative for PE.
He recently completed empiric Zosyn during hospital stay
Procal mildly elevated at 0.32
Zosyn has been transitioned off to Meropenem. Spiked fever earlier today.
Speech re-evaluated on 01/02-IDDS6. However, improvement was seen while patient was NPO. Need to closely monitor O2 status with restarting of diet.
noted recent VSE 12/24 cleared for mince moist diet
Midodrine dose increased to 10mg TID
Levophed started and wean off as tolerated
Cont with bronchodilators
Decreased airway clearance remains to be the biggest hindrance for oxygenation improvement
Spiking fever once again with reinitiation of diet.
ID and pulm following
#Dysphagia
Patient with mild decrease in FiO2 which is only noticed during patient being NPO. Need to closely monitor oxygenation status is diuresis restarted
Speech recommending IDDSI 6 but only provide P.O. if Sp02 >90% and RR <30
# Chronic suprapubic catheter POA
# Chronic urinary retention
s/p recent SPC exchange on 12/23/23
# Acute to subacute impacted fracture of the right humeral neck
per , he suffered a shoulder fracture by hitting his arm against a metal bar.
Shoulder X-ray noted healing subacute right humeral neck fracture but possible blastic osseous metastatic disease.
Finding was discussed with patient and and they preferred to NOT further investigate the blastic bone lesions.
PSA was sent, WNL at 2.6
#Paroxysmal A fib from recent admission
Pt was recently started with Cardizem 30 mg TID with holding parameter
pt was recently started with Eliquis 5 mg BID
# Anemia of chronic disease
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
# Muscle Spasms due to Quadriplegia
# Hx of Bowel resection
continue [employer] gabapentin
Hold baclofen and Tizanidine
Colostomy care
noted recent VSE 12/24 cleared for mince moist diet
Monitor mentation closely
# Anxiety/Depression
Pt taken off benzo recently
continue Celexa
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
# L upper ear crease stage 2 pressure injury due to oxygen tubing
wound care
# Midodrine induced hypertension
prn Hydralazine with parameters placed
Hypokalemia-replete/monitor
�
DVT prophylaxis: Eliquis
Code: DNR/DNI
Updated spouse over the phone on 12/31 and again on 01/02/2024. Explained to spouse that patient is in critical condition with significant increase in oxygenation requirement and hypotension requiring pressors. Spouse understand the poor prognosis
and she will relay message to the family members. Understand patient is high risk of decompensation and she recommended to continue with aggressive measures for now.
Prognosis extremely poor-multiple hospitalization for similar situation.
Talk to spouse earlier today on 01/04/24 explained patient poor prognosis of worsening of hypoxemia with p.o. intake and persistent high flow requirement with FiO2 of 80%. Patient with multiple medical comorbidity and hospitalization for similar
situation. Spouse agreed to move towards hospice but want more information. Hospice consulted. Patient most likely will qualify for GIP.
Anticipated Discharge: > 48 hours
Subjective/Interval History
-
Date of Service: January 04, 2024
FIO2 being increased this morning
Objective Data
-
Labs:
Laboratory Results
01/04/24
04:00
WBC 16.6 H
Hgb 9.9 L
Hct 31.8 L
Plt Count 299
Sodium 140
Potassium 4.4 D
Chloride 103
Carbon Dioxide 29
BUN 15
Creatinine 0.3 L
Glucose 111 H
Calcium 8.7
Vital Signs:
Vital Signs
Temp Pulse Resp BP Pulse Ox
100 F 76 22 99/65 90
01/04/24 08:51 01/04/24 08:51 01/04/24 08:51 01/04/24 08:51 01/04/24 08:57
I&O
01/03/24 01/04/24 01/05/24
06:59 06:59 06:59
Intake Total 15 / 15 200 / 200
Output Total 900 / 900 100 / 100
Balance -885 / -885 100 / 100
Physical Exam
-
General: Well Developed, Comfortable, Respiratory Distress and Appears Chronically Ill
HEENT: Normocephalic, Atraumatic and Oxygen (HFNC )
Respiratory: Rhonchi and Non Labored Respirations; Negative Accessory Resp Muscle Use
Cardiac: Regular Rhythm and S1/S2
GI: Soft, Nontender, Nondistended and Normal Bowel Sounds
Musculoskeletal: No Edema and Other (B/L UE contractures )
Skin: Warm
Neuro: Awake and Alert
Psych: Calm
Data Reviewed
-
Total Time Spent with Patient (in minutes): 57
--- NOTE | 2024-01-04 10:37 | HOSPNOTE ---
Spoke with spouse at length about hospice and keeping the patient comfortable. The spouse is in agreement with starting comfort measures and discontinuing all medications and focus on comfort. I explained that the patient may not be able to eat due
to lethargy but we will certainly offer. I did tell the spouse that the patient is so decondintioned and has multiple issues that life expectancy will be short in my opinion. I encouraged the spouse to come and she declined. I asked again if she is
in agreement to keep the patient comfortable with medications and stopping all aggressive measures and once again she stated yes just keep him comfortable. We will continue to follow the spouse for support. Attending and Case management aware of
plan.
--- NOTE | 2024-01-04 11:21 | W.PN.UPDATE ---
Update Note
Progress Note Update
Discussed with spouse over the phone once again. Discussed with hospice team. Spouse unable to come in to sign hospice paperwork. Spouse stated agreed for patient to be transition to comfort measures. Spouse understand patient with transition to
comfort measures which would include morphine and Ativan with plan to slowly wean down oxygen and stop other aggressive medical measures. Spouse understand patient poor prognosis and understand that diet will be continued for comfort feeding only.
Spouse to call and inform other relatives.
Prognosis poor. Tx to M/S comfort measures.
--- NOTE | 2024-01-04 11:22 | W.PN.PUL3 ---
Today's Communication / Plan
-
Remains on HFNC, could not tolerate PAP therapy
Declined intubation/trach placement, is DNR
Hospice consult placed, family agreeing to comfort care
Reviewed with care team
We will sign off at this time, please call with questions
Assessment
-
63-year-old C2-4 level quadriplegic male with a history of spinal infarction, chronic dysphagia, recurrent aspiration pneumonia, chronic suprapubic catheter who was recently discharged after being treated for aspiration pneumonia and returns from
the long term with worsening hypoxemia-pulmonary consulted for hypoxemia/recurrent aspiration pneumonia 12/31/2023.
Respiratory failure-acute hypoxemic
Recurrent aspiration pneumonia
Basilar atelectasis from hypoventilation/mucus impaction
Leukocytosis
Mild sealnz-stekkfshuv-tiwxbgqxhb 12.5
Mild hyperglycemia
Elevated procalcitonin
DNR
Conditions present prior to admission:
Recent hospitalization-discharged 12/28/2023-aspiration pneumonia
Wxqajstjjrme-N3-0 level after spinal infarction-2014
Status post colostomy/suprapubic catheter/PEG
History of CVA 2012
History of cardiopulmonary arrest/sepsis 08/2021
PAF in setting of sepsis 2018
MRSA in the past
Stage IV sacral decub status post resection with diverting colostomy
Anemia of chronic disease
Chronic dysphagia.
Chronic suprapubic catheter.
Recurrent UTI
Chronic hypotension on midodrine
Recurrent aspiration pneumonia.
Bladder spasms.
Diabetes.
Right proximal humeral fracture-age unknown-possibility for metastatic disease, bone scan recommended-conservative management
Plan
Recurrent respiratory decompensation related to recurrent pneumonias-likely aspiration
Supplemental oxygen as needed
High flow oxygen, wean as tolerated
Noninvasive ventilation if needed
Patient is a DO NOT INTUBATE
We had a long conversation about trach which he has declined
I reviewed CT with patient --mostly atelectasis and mucus impaction from poor airway clearance
Follow radiographically--has not improved
Airway clearance continued, Mucolytic's/nebs
Cufflater or vest therapy if tolerated-reviewed previous hospitalization records-intermittently tolerated best, however sometimes refused and did not feel it was helping
Head of bed elevation
Trial of PAP 01/02 for <1 hr, did not tolerate and would not want to resume this
Speech therapy reevaluation-followed on last admission
VSE 12/25/23 noted--No penetration/aspiration or pharyngeal residue noted.
Continue IDDSI Level 6 (Soft/Bite-Sized) and Thin Liquids
Presumed aspiration PNA/hypoventilation with poor airway clearance
Check cultures if able
Urine Legionella and streptococcal antigen 12/23/2023-negative
MRSA screen 12/21/2023-negative
Urine culture 12/21/2022-Morganella Morgagni
Empiric antibiotics
DVT prophylaxis
Nutrition with aspiration precautions
Reviewed with primary team as well as nursing
Comfort care is being pursued
Family Discussions
01/03/24- Reviewed prognosis again, he seems unsure. He has not spoken to his he states. He was open to hospice consult, order placed.
Rory 01/02/24- He is open to comfort measures if he is continuing to decline, he openly admits that this quality of life has been poor and that he is not sure if he wants to keep going
He is DNR, confirmed he does not wish to pursue trach
I updated via phone per patient request
Diagnostic Data:
Chest x-ray 09/22/2022-elevated left hemidiaphragm, left lower lobe opacification
Chest x-ray 12/22/2023-rapid interval increase in large airspace consolidation right upper lobe, aspiration pneumonia suspected, acute to subacute impacted fracture right humeral neck
Chest x-ray 12/27/2023 opacification right middle lobe again with some volume loss, bilateral upper extremity obscured the mid to lower lungs bilaterally
Chest x-ray 12/31/2023-new area of patchy opacification left upper to midlung field suggesting new pneumonia, right proximal humeral fracture noted dating back to December 22, 2023 but not present December 21, 2022
CT chest 09/22/2022-resolution of previous mucous plugging in the left lower lobe, there remains near complete collapse of the left lower lobe, small to moderate loculated pleural effusion
-----
Total time spent on this encounter __51__ includes review of history, physical exam, medications, laboratory data, personal review of imaging, extensive review of outpatient records, discussion with care team and respiratory therapy.
Subjective Data
-
Date of Service:
Date of Service: January 04, 2024
Chief Complaint: Pulmonary Follow Up
Subjective:
Remains on HFNC, no changes clinically
Remains off pressors
No new complaints
Objective Data
Data Reviewed
Vital Signs / I&O / Oxygen:
Vital Signs
Temp Pulse Resp BP Pulse Ox
97.9 F 88 20 110/79 96
01/04/24 10:00 01/04/24 11:00 01/04/24 11:00 01/04/24 11:00 01/04/24 11:00
Intake and Output
01/03/24 01/04/24 01/05/24
06:59 06:59 06:59
Intake Total 15 / 15 200 / 200 10 / 10
Output Total 900 / 900 100 / 100
Balance -885 / -885 100 / 100 10 / 10
SaO2 96
Nasal Cannula flow liters per 50
minute
Physical Exam
General: Comfortable and Other (NAD, chronically ill appearing)
HEENT: Normocephalic, Anicteric and Moist Mucous Membranes
Cardiovascular: S1-S2 and Regular Rhythm
Respiratory: Crackles, Rhonchi and Non-Labored Respirations
GI: Non Distended, Non Tender and Other (ostomy present, bandages)
Neurology: Awake, Alert, AO x 3, Lethargic and Other (quad)
Skin: Warm, Dry and Good Color
Labs/Micro/Reports
Lab Data
01/04/24 04:00
01/04/24 04:00
Microbiology
12/31/23 17:55 Nose MRSA Screen - Final
No Methicillin Resistant Staphylococcus aureus isolated.
--- NOTE | 2024-01-04 12:22 | CM ---
Patient from [facility] with Hx quadriplegia, colostomy, s/p catheter with Dx Acute hypoxic respiratory failure, likely recurrent pneumonia, sepsis, Acute to subacute impacted fracture of the right humeral neck. High flow O2. Comfort Care.
Plan transfer from IMU to today.
Received call from patient's Kasia; she requested to speak with Dr Cool again re; hospice.
Messages with Dr Cool and [facility]; they spoke with who agreed to Comfort Care.
Phone call to [facility]; left message with update that patient is in Comfort Care.
Plan comfort care.
[2024-01-04] MEDS: ZANAFLEX 8 MG PO (12:55)
--- NOTE | 2024-01-04 13:16 | TRANSFER ---
Verbal report called to Traci Rogers from 2nd floor.
[2024-01-04] MEDS: MORPHINE SULFATE 1 MG IV ×5 (14:17→23:21)
--- NOTE | 2024-01-04 14:31 | PTCARENOTE ---
pt transferred from IMU to 2120 this afternoon. pt given prn morphine for dyspnea and pain, pt to have R IJ site discontinued and be transitioned to midflow O2 after discussion with hospice nurse and MD. pt with suprapubic, colostomy, and old
enteral feeding site on abdomen. pt is an assist feed per report this nurse received. pt heavy assist of 2 with turns. pillow placed under left side at this time. family at bedside and made aware of plan.
--- NOTE | 2024-01-04 14:56 | W.PN.UPDATE ---
Update Note
Progress Note Update
Multiple family members came at bedside including patient daughter patient mother and patient sister. Explained to them patient prognosis and hospitalization so far. Once again reiterated hospital course with persistent severe hypoxemia,
aspiration pneumonia pneumonitis, atelectasis, hypotension without significant improvement. Explained to them patient wishes which was he did not want to continue with aggressive medical measures, did not want rehospitalization and wants to be
comfortable and wants to continue to eat. He understood the risk of aspiration leading to severe hypoxemia and . Which was also discussed with patient's spouse. Explained after prolonged and multiple conversation by multiple specialty with
patient and patient's spouse both agreed for patient to be transition to comfort care. It was explained to them all medical care will be stopped and patient will be transitioned to morphine and Ativan. All this was discussed in presence of
patient RN and principal planner [facility]. Explained everything in details and plan will be to continue current comfort measures.
[2024-01-04] MEDS: ATIVAN 1 MG IV (15:15)
[2024-01-04] MEDS: NSS (PRESERVATIVE FREE) 0.5 ML IV (15:16)
--- NOTE | 2024-01-04 15:25 | PTCARENOTE ---
Addendum entered by Traci Barr RN 01/04/24 16:43:
per discussion with [facility] from hospice and MD, okay to hold PO medications at this time.
Original Note:
pt given prn ativan and morphine. see MAR for proper documentation. R IJ site taken out via VAT. pt kept flat until 1510.
[2024-01-04] MEDS: NEURONTIN PO ×2 (16:43→19:30)
[2024-01-04] MEDS: ZANAFLEX PO ×2 (17:40→19:30)
[2024-01-04] MEDS: LIORESAL PO ×2 (17:40→19:30)
--- NOTE | 2024-01-04 19:28 | PTCARENOTE ---
pt family at bedside concerned that best decision not made for patient care despite conversation with hospitalist and hospice nurse this afternoon at bedside. this nurse explained poor prognosis and that pt and medical POA were in discussion for
days with MD about goals of care and came to conclusion of comfort. pt family educated that medical POA makes final decision. family looking for more insight on what made final decision despite conversation about attempted interventions during
patients admission here. nurse noted to contact hospitalist and potential specialists to come and discuss with family members tomorrow 01/04.
[2024-01-05] MEDS: MORPHINE SULFATE 1 MG IV (00:42)
[2024-01-05] MEDS: MORPHINE 100 IV (00:59)
[2024-01-05] MEDS: ATIVAN 1 MG IV ×4 (02:24→22:37)
[2024-01-05] MEDS: MORPHINE SULFATE 2 MG IV ×7 (02:25→17:50)
[2024-01-05] MEDS: NSS (PRESERVATIVE FREE) 0.5 ML IV ×4 (02:26→22:37)
--- NOTE | 2024-01-05 03:43 | PTCARENOTE ---
Pt's phoned RN ~0200. RN spoke with pt's over the phone ~45minutes; Kasia expresses her concerns for the family drama pt's inconsistent statements are causing. Kasia reports she received a text from her daughter, Michelle, at the pt's bedside
that 'this is a huge mistake and she will never forgive her mother' for withdrawing care from her father. Explained to Kasia the meeting that occurred today between family and Dr. Cool, pt's daughter Michelle was not present for these. Per Kasia's
request, RN spoke with pt's daughter Kasia at the bedside to reiterate the meeting between her family and Dr. Cool yesterday, per Dr. Cool's reports. Michelle states she is aware of the events of this meeting and she does not agree with the plan for
comfort care as she does not believe pt was given enough time on oxygen to fully recover. Michelle reports she is aware that pt tells hospital staff 'he does not want to live this way' and he 'just wants to eat and be comfortable' but pt gives her
conflicting feelings by asking her when he will go back to [place] and supposedly states he 'wants to live'. These statements not witnessed by RN. At this point in time, pt required multiples doses of IV Morphine for comfort and, per protocol,
was placed on a Morphine gtt for pain control. Michelle has been at the bedside throughout this process with no mentions of concern to RN until after approached at the request of her mother. Explained to Michelle another meeting with family can be
arranged when she is present where she can voice her concerns about pt's prognosis. Michelle states she cannot be at 'one of those meetings' because 'she doesn't believe what they're saying and she is a hot head'. Pt is currently resting comfortably,
emotional support provided to pt's daughter at the bedside.
[2024-01-05 07:00] VITALS: BP 109/65
[2024-01-05] MEDS: ZANAFLEX PO ×3 (09:12→17:20)
[2024-01-05] MEDS: LIORESAL PO ×2 (09:12→17:20)
[2024-01-05] MEDS: NEURONTIN PO ×2 (09:12→15:37)
[2024-01-05] MEDS: ROBINUL 0.2 MG IV ×2 (09:13→22:38)
--- NOTE | 2024-01-05 10:51 | HOSPNOTE ---
Met with Michelle (daughter) and explained hospice and the philosophy. I explained that this admission is different then the last admissions and patient is not able to recover especially do to his oxygen requirements. The daughter was very tearful but
willing to listen to the explanations. After explaining the daughter is in agreement with continuing comfort measures especially lowering the oxygen support and medicating appropriately. The daughter has my number with any further questions. I
also told the daughter that the patient did not wish for any type of aggressive measures and wanted to be kept comfortable and the patient's spouse is in agreement with comfort. Will continue to follow and support. Attending and floor RN aware of
above conversation.
--- NOTE | 2024-01-05 11:25 | W.PN.ID1 ---
Date of Service
Date of Service: January 05, 2024
Today's Communication
Sign off.
Assessment / Plan
Leukocytosis
Pneumonia
- suspected recurrent aspiration.
Respiratory failure
- Currently on high flow O2
Hypotension; now on pressors
Quadriplegia due to C4 spinal infarct.
Chronic sacral decubitus.
Hx diverting colostomy.
Neurogenic bladder with chronic suprapubic catheter.
History of staghorn calculus, status post extraction in the past.
MDRO
Chronic hypotension, on midodrine.
Aspiration PNA
CVA
Anxiety/depression
Recommendations:
Chart reviewed, patient has been transitioned to comfort measures.
Antibiotics have been discontinued.
Nothing further to add from a Infectious Diseases standpoint.
Will see again at your request.
����������������������������������������������������������
Chief Complaint
-: Clinical Sepsis and Pneumonia
Vital Signs / Physical Exam
Vital Signs
Vital Signs
Temp Pulse Resp BP Pulse Ox
97.9 F 97 16 109/65 93
01/05/24 07:00 01/05/24 07:00 01/05/24 07:00 01/05/24 07:00 01/05/24 07:00
Physical Exam
Constitutional: Comfortable and Chronically Ill
Pulmonary: Non Labored
Psychological: Calm
Objective Data
Lab Data
Lab Results
01/04/24 04:00
01/04/24 04:00
PT 16.4 Sec (11.4-14.6) H 12/31/23 08:38
INR 1.34 12/31/23 08:38
Estimated Creat Clear 103 ml/min 01/04/24 04:00
Total Bilirubin 0.5 mg/dl (0.2-1.3) 12/31/23 08:38
AST 20 U/L (17-59) 12/31/23 08:38
ALT 31 U/L (0-50) 12/31/23 08:38
Alkaline Phosphatase 83 U/L (38-126) 12/31/23 08:38
Most recent labs reviewed.
Micro Results:
12/31/23 17:55 MRSA Screen - Final
Nose No Methicillin Resistant Staphylococcus aureus isolated.
Imaging:
01/01/2024 CT chest PE study: No pulmonary embolism noted. Bilateral upper lobe pneumonia (R >L). Small to moderate bilateral pleural effusions with associated compressive atelectasis.
12/31/2023 CXR (portable): New area of patchy parenchymal opacity within the left upper lobe suggestive of new focal area of pneumonia.
--- NOTE | 2024-01-05 12:03 | PTCARENOTE ---
pt weaned down to 10L midflow this afternoon. prn morphine given as needed to help with dyspnea. pt verbalizes and shows no discomfort on the 10L at this time and is sating at 94/95%
--- NOTE | 2024-01-05 12:48 | W.PN.HOSP.TC ---
Today's Communication/Plan
-
morphine/ativan
comfort measures
Assessment / Plan
Assessment / Plan
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
He was sent in from his NH for worsening hypoxic (was on 2L NC, now up to 10L mid flow in ED).
He denies to other symptoms.
Assessment
# Acute on chronic hypoxic respiratory failure, likely due to recurrent aspiration pneumonia/pneumonitis
# Recent admission for aspiration pneumonia
# Pneumonia present on admission. Not septic on admission
# Shock likely multifactorial (Polypharmacy affecting BP) v.s low likelihood of septic shock
# Dysphagia
# Chronic suprapubic catheter POA s/p recent SPC exchange on 12/23/23
# Chronic urinary retention
# Acute to subacute impacted fracture of the right humeral neck
# Paroxysmal A fib from recent admission
# Anemia of chronic disease
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
# Muscle Spasms due to Quadriplegia
# Hx of Bowel resection
# Anxiety/Depression
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
# L upper ear crease stage 2 pressure injury due to oxygen tubing
Plan
After discussion with patient and patient spouse please see update note from 01/04/2024 patient has been started on comfort measures.
Started on morphine prn with infusion protocol
IV ativan
comfort feeding only but doubt safe to eat
Anti-secretory meds.
appreciate hospice team
Pt was weaned to 2L NC at [place].
Persistent hypoxic requring HFNC
CXR this admission noted New area of patchy parenchymal opacity within the left upper to midlung, suggesting a new focal area of pneumonia.
CT chest negative for PE.
He recently completed empiric Zosyn during hospital stay
Procal mildly elevated at 0.32
Zosyn has been transitioned off to Meropenem.
Speech re-evaluated on 01/02-IDDS6. However, improvement was seen while patient was NPO. Need to closely monitor O2 status with restarting of diet.
noted recent VSE 12/24 cleared for mince moist diet
Midodrine dose increased to 10mg TID
Levophed started and wean off as tolerated
Cont with bronchodilators
Decreased airway clearance remains to be the biggest hindrance for oxygenation improvement
Spiking fever once again with reinitiation of diet.
Patient with mild decrease in FiO2 which is only noticed during patient being NPO worsening of oxygenation with reinitiation of diet.
Speech recommending IDDSI 6 but only provide P.O. if Sp02 >90% and RR <30
per , he suffered a shoulder fracture by hitting his arm against a metal bar.
Shoulder X-ray noted healing subacute right humeral neck fracture but possible blastic osseous metastatic disease.
Finding was discussed with patient and and they preferred to NOT further investigate the blastic bone lesions.
PSA was sent, WNL at 2.6
Pt was recently started with Cardizem 30 mg TID with holding parameter
pt was recently started with Eliquis 5 mg BID
Hold anti-spasm muscle as high risk of aspiration
Pt taken off benzo recently
�
DVT prophylaxis: Eliquis
Code: DNR/DNI
Updated spouse over the phone on 12/31 and again on 01/02/2024. Explained to spouse that patient is in critical condition with significant increase in oxygenation requirement and hypotension requiring pressors. Spouse understand the poor prognosis
and she will relay message to the family members. Understand patient is high risk of decompensation and she recommended to continue with aggressive measures for now.
Prognosis extremely poor-multiple hospitalization for similar situation.
01/04/24 discussion with spouse/family
Talk to spouse earlier today on 01/04/24 explained patient poor prognosis of worsening of hypoxemia with p.o. intake and persistent high flow requirement with FiO2 of 80%. Patient with multiple medical comorbidity and hospitalization for similar
situation. Spouse agreed to move towards hospice but want more information. Hospice consulted. Patient most likely will qualify for GIP.
Discussed with spouse over the phone once again. Discussed with hospice team. Spouse unable to come in to sign hospice paperwork. Spouse stated agreed for patient to be transition to comfort measures. Spouse understand patient with transition to
comfort measures which would include morphine and Ativan with plan to slowly wean down oxygen and stop other aggressive medical measures. Spouse understand patient poor prognosis and understand that diet will be continued for comfort feeding only.
Spouse to call and inform other relatives.
Prognosis poor. Tx to M/S comfort measures.
Multiple family members came at bedside including patient daughter patient mother and patient sister. Explained to them patient prognosis and hospitalization so far. Once again reiterated hospital course with persistent severe hypoxemia,
aspiration pneumonia pneumonitis, atelectasis, hypotension without significant improvement. Explained to them patient wishes which was he did not want to continue with aggressive medical measures, did not want rehospitalization and wants to be
comfortable and wants to continue to eat. He understood the risk of aspiration leading to severe hypoxemia and . Which was also discussed with patient's spouse. Explained after prolonged and multiple conversation by multiple specialty with
patient and patient's spouse both agreed for patient to be transition to comfort care. It was explained to them all medical care will be stopped and patient will be transitioned to morphine and Ativan. All this was discussed in presence of
patient RN and wellness specialist Eboni. Explained everything in details and plan will be to continue current comfort measures.
d/w with risk management at
Anticipated Discharge: > 48 hours
Subjective/Interval History
-
Date of Service: January 05, 2024
on comfort measures
Objective Data
-
Vital Signs:
Vital Signs
Temp Pulse Resp BP Pulse Ox
97.9 F 97 16 109/65 93
01/05/24 07:00 01/05/24 07:00 01/05/24 07:00 01/05/24 07:00 01/05/24 07:00
I&O
01/04/24 01/05/24 01/06/24
06:59 06:59 06:59
Intake Total 200 / 200 370 / 370
Output Total 100 / 100 500 / 500
Balance 100 / 100 -130 / -130
Physical Exam
-
General: Appears Chronically Ill
HEENT: Oxygen (midflow)
Respiratory: Rhonchi and Non Labored Respirations; Negative Accessory Resp Muscle Use
Cardiac: S1/S2
GI: Soft and Nondistended
Musculoskeletal: No Edema and Other (B/L UE contractures )
Skin: Warm
Psych: Calm
Data Reviewed
-
Total Time Spent with Patient (in minutes): 56
--- NOTE | 2024-01-05 15:30 | CM ---
Case management introduced self to patient's sister & daughter.
Discussed case managment is available for any support/needs.
Patient on comfort care
PLAN: Patient on comfort care
[2024-01-05 19:47] VITALS: BP 116/74
[2024-01-06] MEDS: MORPHINE SULFATE 2 MG IV ×7 (04:18→19:47)
[2024-01-06] MEDS: ATIVAN 1 MG IV ×3 (04:48→20:43)
[2024-01-06] MEDS: NSS (PRESERVATIVE FREE) 0.5 ML IV ×2 (04:49→13:51)
[2024-01-06 07:00] VITALS: BP 158/95
[2024-01-06] MEDS: MORPHINE SULFATE IV (08:22)
--- NOTE | 2024-01-06 09:28 | HOSPNOTE ---
Hospice is following. Patient is on comfort care. Hospice met with family yesterday. All are in agreement now to comfort care. is not able to come to the hospital to see patient. Plan is for patient to remain on comfort care and hospice will
follow for support. Hospice remains available for any questions or concerns.
--- NOTE | 2024-01-06 10:38 | W.PN.HOSP.TC ---
Today's Communication/Plan
-
comfort measures
Assessment / Plan
Assessment / Plan
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
He was sent in from his NH for worsening hypoxic (was on 2L NC, now up to 10L mid flow in ED).
He denies to other symptoms.
Assessment
# Acute on chronic hypoxic respiratory failure, likely due to recurrent aspiration pneumonia/pneumonitis
# Recent admission for aspiration pneumonia
# Pneumonia present on admission. Not septic on admission
# Shock likely multifactorial (Polypharmacy affecting BP) v.s low likelihood of septic shock
# Dysphagia
# Chronic suprapubic catheter POA s/p recent SPC exchange on 12/23/23
# Chronic urinary retention
# Acute to subacute impacted fracture of the right humeral neck
# Paroxysmal A fib from recent admission
# Anemia of chronic disease
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
# Muscle Spasms due to Quadriplegia
# Hx of Bowel resection
# Anxiety/Depression
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
# L upper ear crease stage 2 pressure injury due to oxygen tubing
Plan
After discussion with patient and patient spouse please see update note from 01/04/2024 patient has been started on comfort measures.
Started on morphine prn with infusion protocol. Now on morphine infusion. Uptitrate as per the protocol.
IV ativan
comfort feeding only but doubt safe to eat
Wean o2 as tolerated based on symptomology/hospice assistance
Anti-secretory meds.
appreciate hospice team
Pt was weaned to 2L NC at [facility].
Persistent hypoxic requring HFNC
CXR this admission noted New area of patchy parenchymal opacity within the left upper to midlung, suggesting a new focal area of pneumonia.
CT chest negative for PE.
He recently completed empiric Zosyn during hospital stay
Procal mildly elevated at 0.32
Zosyn has been transitioned off to Meropenem.
Speech re-evaluated on 01/02-IDDS6. However, improvement was seen while patient was NPO. Need to closely monitor O2 status with restarting of diet.
noted recent VSE 12/24 cleared for mince moist diet
Midodrine dose increased to 10mg TID
Levophed started and wean off as tolerated
Cont with bronchodilators
Decreased airway clearance remains to be the biggest hindrance for oxygenation improvement
Spiking fever once again with reinitiation of diet.
Patient with mild decrease in FiO2 which is only noticed during patient being NPO worsening of oxygenation with reinitiation of diet.
Speech recommending IDDSI 6 but only provide P.O. if Sp02 >90% and RR <30
per , he suffered a shoulder fracture by hitting his arm against a metal bar.
Shoulder X-ray noted healing subacute right humeral neck fracture but possible blastic osseous metastatic disease.
Finding was discussed with patient and and they preferred to NOT further investigate the blastic bone lesions.
PSA was sent, WNL at 2.6
Pt was recently started with Cardizem 30 mg TID with holding parameter
pt was recently started with Eliquis 5 mg BID
Hold anti-spasm muscle as high risk of aspiration
Pt taken off benzo recently
�
DVT prophylaxis: Eliquis
Code: DNR/DNI
Updated spouse over the phone on 12/31 and again on 01/02/2024. Explained to spouse that patient is in critical condition with significant increase in oxygenation requirement and hypotension requiring pressors. Spouse understand the poor prognosis
and she will relay message to the family members. Understand patient is high risk of decompensation and she recommended to continue with aggressive measures for now.
Prognosis extremely poor-multiple hospitalization for similar situation.
01/04/24 discussion with spouse/family
Talk to spouse earlier today on 01/04/24 explained patient poor prognosis of worsening of hypoxemia with p.o. intake and persistent high flow requirement with FiO2 of 80%. Patient with multiple medical comorbidity and hospitalization for similar
situation. Spouse agreed to move towards hospice but want more information. Hospice consulted. Patient most likely will qualify for GIP.
Discussed with spouse over the phone once again. Discussed with hospice team. Spouse unable to come in to sign hospice paperwork. Spouse stated agreed for patient to be transition to comfort measures. Spouse understand patient with transition to
comfort measures which would include morphine and Ativan with plan to slowly wean down oxygen and stop other aggressive medical measures. Spouse understand patient poor prognosis and understand that diet will be continued for comfort feeding only.
Spouse to call and inform other relatives.
Prognosis poor. Tx to M/S comfort measures.
Multiple family members came at bedside including patient daughter patient mother and patient sister. Explained to them patient prognosis and hospitalization so far. Once again reiterated hospital course with persistent severe hypoxemia,
aspiration pneumonia pneumonitis, atelectasis, hypotension without significant improvement. Explained to them patient wishes which was he did not want to continue with aggressive medical measures, did not want rehospitalization and wants to be
comfortable and wants to continue to eat. He understood the risk of aspiration leading to severe hypoxemia and . Which was also discussed with patient's spouse. Explained after prolonged and multiple conversation by multiple specialty with
patient and patient's spouse both agreed for patient to be transition to comfort care. It was explained to them all medical care will be stopped and patient will be transitioned to morphine and Ativan. All this was discussed in presence of
patient RN and hoisting machine operator Eboni. Explained everything in details and plan will be to continue current comfort measures.
d/w with risk management at on 01/05/24
d/w with daughter at bedside in details on 01/06/24
Anticipated Discharge: > 48 hours
Subjective/Interval History
-
Date of Service: January 06, 2024
remains on morphine gtt
comfortable
Objective Data
-
Vital Signs:
Vital Signs
Temp Pulse Resp BP Pulse Ox
98.1 F 107 18 158/95 96
01/06/24 07:00 01/06/24 07:00 01/06/24 07:00 01/06/24 07:00 01/06/24 07:00
I&O
01/05/24 01/06/24 01/07/24
06:59 06:59 06:59
Intake Total 370 / 370 112 / 112
Output Total 500 / 500 975 / 975
Balance -130 / -130 -863 / -863
Physical Exam
-
General: Appears Chronically Ill
HEENT: Oxygen (midflow)
Respiratory: Rhonchi and Non Labored Respirations; Negative Accessory Resp Muscle Use
Cardiac: S1/S2
GI: Soft and Nondistended
Musculoskeletal: No Edema and Other (B/L UE contractures )
Skin: Warm
Psych: Calm
[2024-01-06] MEDS: ROBINUL 0.2 MG IV ×2 (13:52→19:59)
[2024-01-06] MEDS: FLUSH (NSS) 2 FLUSH IV (13:53)
[2024-01-06 19:51] VITALS: BP 153/82
[2024-01-07] MEDS: MORPHINE SULFATE 2 MG IV ×7 (00:20→17:21)
[2024-01-07] MEDS: ATIVAN 1 MG IV ×3 (00:29→08:44)
[2024-01-07] MEDS: ROBINUL 0.2 MG IV ×3 (02:59→17:22)
[2024-01-07 07:00] VITALS: BP 123/98
[2024-01-07] MEDS: FLUSH (NSS) 2 FLUSH IV ×3 (08:43→17:22)
[2024-01-07] MEDS: NSS (PRESERVATIVE FREE) 0.5 ML IV (08:48)
--- NOTE | 2024-01-07 10:19 | HOSPNOTE ---
Addendum entered by Qi Phipps RN 01/07/24 16:11:
Called and spoke to patients daughter Michelle to offer support. Answered the questions that she had. Let her talk and express herself as well. Reviewed that hospice is available if she needs any support. Reviewed as well that Eboni will come by
tomorrow to offer her support as well. Primary RN and Attending updated as well.
Original Note:
Hospice is following. Patient is on comfort care. Hospice met with family on Monday. All are in agreement now to comfort care. is not able to come to the hospital to see patient. Plan is for patient to remain on comfort care and hospice will
follow for support. Hospice remains available for any questions or concerns.
--- NOTE | 2024-01-07 10:51 | W.PN.HOSP.TC ---
Today's Communication/Plan
-
Comfort measures
Assessment / Plan
Assessment / Plan
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
He was sent in from his NH for worsening hypoxic (was on 2L NC, now up to 10L mid flow in ED).
He denies to other symptoms.
Assessment
# Acute on chronic hypoxic respiratory failure, likely due to recurrent aspiration pneumonia/pneumonitis
# Recent admission for aspiration pneumonia
# Pneumonia present on admission. Not septic on admission
# Shock likely multifactorial (Polypharmacy affecting BP) v.s low likelihood of septic shock
# Dysphagia
# Chronic suprapubic catheter POA s/p recent SPC exchange on 12/23/23
# Chronic urinary retention
# Acute to subacute impacted fracture of the right humeral neck
# Paroxysmal A fib from recent admission
# Anemia of chronic disease
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
# Muscle Spasms due to Quadriplegia
# Hx of Bowel resection
# Anxiety/Depression
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
# L upper ear crease stage 2 pressure injury due to oxygen tubing
Plan
After discussion with patient and patient spouse please see update note from 01/04/2024 patient has been started on comfort measures.
Started on morphine prn with infusion protocol. Now on morphine infusion. Uptitrate as per the protocol.
IV ativan
comfort feeding only but doubt safe to eat
Wean o2 as tolerated based on symptomatology/hospice assistance
Anti-secretory meds.
appreciate hospice team
Pt was weaned to 2L NC at [facility].
Persistent hypoxic requring HFNC
CXR this admission noted New area of patchy parenchymal opacity within the left upper to midlung, suggesting a new focal area of pneumonia.
CT chest negative for PE.
He recently completed empiric Zosyn during hospital stay
Procal mildly elevated at 0.32
Zosyn has been transitioned off to Meropenem.
Speech re-evaluated on 01/02-IDDS6. However, improvement was seen while patient was NPO. Need to closely monitor O2 status with restarting of diet.
noted recent VSE 12/24 cleared for mince moist diet
Midodrine dose increased to 10mg TID
Levophed started and wean off as tolerated
Cont with bronchodilators
Decreased airway clearance remains to be the biggest hindrance for oxygenation improvement
Spiking fever once again with reinitiation of diet.
Patient with mild decrease in FiO2 which is only noticed during patient being NPO worsening of oxygenation with reinitiation of diet.
Speech recommending IDDSI 6 but only provide P.O. if Sp02 >90% and RR <30
per , he suffered a shoulder fracture by hitting his arm against a metal bar.
Shoulder X-ray noted healing subacute right humeral neck fracture but possible blastic osseous metastatic disease.
Finding was discussed with patient and and they preferred to NOT further investigate the blastic bone lesions.
PSA was sent, WNL at 2.6
Pt was recently started with Cardizem 30 mg TID with holding parameter
pt was recently started with Eliquis 5 mg BID
Hold anti-spasm muscle as high risk of aspiration
Pt taken off benzo recently
�
DVT prophylaxis: Eliquis
Code: DNR/DNI
Updated spouse over the phone on 12/31 and again on 01/02/2024. Explained to spouse that patient is in critical condition with significant increase in oxygenation requirement and hypotension requiring pressors. Spouse understand the poor prognosis
and she will relay message to the family members. Understand patient is high risk of decompensation and she recommended to continue with aggressive measures for now.
Prognosis extremely poor-multiple hospitalization for similar situation.
01/04/24 discussion with spouse/family
Talk to spouse earlier today on 01/04/24 explained patient poor prognosis of worsening of hypoxemia with p.o. intake and persistent high flow requirement with FiO2 of 80%. Patient with multiple medical comorbidity and hospitalization for similar
situation. Spouse agreed to move towards hospice but want more information. Hospice consulted. Patient most likely will qualify for GIP.
Discussed with spouse over the phone once again. Discussed with hospice team. Spouse unable to come in to sign hospice paperwork. Spouse stated agreed for patient to be transition to comfort measures. Spouse understand patient with transition to
comfort measures which would include morphine and Ativan with plan to slowly wean down oxygen and stop other aggressive medical measures. Spouse understand patient poor prognosis and understand that diet will be continued for comfort feeding only.
Spouse to call and inform other relatives.
Prognosis poor. Tx to M/S comfort measures.
Multiple family members came at bedside including patient daughter patient mother and patient sister. Explained to them patient prognosis and hospitalization so far. Once again reiterated hospital course with persistent severe hypoxemia,
aspiration pneumonia pneumonitis, atelectasis, hypotension without significant improvement. Explained to them patient wishes which was he did not want to continue with aggressive medical measures, did not want rehospitalization and wants to be
comfortable and wants to continue to eat. He understood the risk of aspiration leading to severe hypoxemia and . Which was also discussed with patient's spouse. Explained after prolonged and multiple conversation by multiple specialty with
patient and patient's spouse both agreed for patient to be transition to comfort care. It was explained to them all medical care will be stopped and patient will be transitioned to morphine and Ativan. All this was discussed in presence of
patient RN and hospice nurse practitioner Eboni. Explained everything in details and plan will be to continue current comfort measures.
d/w with risk management at on 01/05/24
d/w with daughter at bedside in details on 01/06/24
d/w with daughter at bedside in detail once again. Answered multiple questions leading to current hospitalization and patient prognosis. Answered extensive medical condition leading to patient deconditioning and current status.. More than 20
minutes spent in discussion with patient daughter. All question answered to her satisfaction.
Anticipated Discharge: > 48 hours
Subjective/Interval History
-
Date of Service: January 07, 2024
remains tachypneic
on morphine gtt
Objective Data
-
Vital Signs:
Vital Signs
Temp Pulse Resp BP Pulse Ox
101.8 F H 136 20 123/98 94
01/07/24 07:00 01/07/24 07:00 01/07/24 07:00 01/07/24 07:00 01/07/24 07:00
I&O
01/06/24 01/07/24 01/08/24
06:59 06:59 06:59
Intake Total 112 / 112 0 / 0
Output Total 975 / 975 985 / 985
Balance -863 / -863 -985 / -985
Physical Exam
-
General: Respiratory Distress and Appears Chronically Ill
HEENT: Oxygen
Respiratory: Rhonchi and Non Labored Respirations; Negative Accessory Resp Muscle Use
Cardiac: S1/S2
GI: Soft and Nondistended
Musculoskeletal: No Edema and Other (B/L UE contractures )
Skin: Warm
[2024-01-07] MEDS: TYLENOL/FEVERALL 650 MG RECTAL (11:20)
[2024-01-07] MEDS: MORPHINE 100 IV (12:37)
[2024-01-07 20:15] VITALS: BP 135/85
[2024-01-08] MEDS: ROBINUL 0.2 MG IV ×3 (05:32→14:44)
[2024-01-08] MEDS: MORPHINE SULFATE 2 MG IV ×4 (05:33→14:44)
[2024-01-08] MEDS: ATIVAN 1 MG IV ×4 (05:34→17:17)
[2024-01-08] MEDS: NSS (PRESERVATIVE FREE) 0.5 ML IV ×4 (05:36→17:17)
--- NOTE | 2024-01-08 06:49 | W.PN.HOSP.TC ---
Today's Communication/Plan
-
continue comfort measures
Assessment / Plan
Assessment / Plan
Limited Physical Exam d/t comfort measures
General: no acute distress
Respiratory: agonal breathing
Neuro: nonverbal
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
He was sent in from his NH for worsening hypoxic (was on 2L NC, now up to 10L mid flow in ED).
He denies to other symptoms.
Assessment
# Acute on chronic hypoxic respiratory failure, likely due to recurrent aspiration pneumonia/pneumonitis
# Recent admission for aspiration pneumonia
# Pneumonia present on admission. Not septic on admission
# Shock likely multifactorial (Polypharmacy affecting BP) v.s low likelihood of septic shock
# Dysphagia
# Chronic suprapubic catheter POA s/p recent SPC exchange on 12/23/23
# Chronic urinary retention
# Acute to subacute impacted fracture of the right humeral neck
# Paroxysmal A fib from recent admission
# Anemia of chronic disease
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
# Muscle Spasms due to Quadriplegia
# Hx of Bowel resection
# Anxiety/Depression
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
# L upper ear crease stage 2 pressure injury due to oxygen tubing
Plan
Following Dr Cool's discussion with patient and patient's spouse (please see update note from 01/04/2024) patient has been transitioned to comfort measures.
cont morphine gtt
IV ativan
comfort feeding if patient requests but unlikely at this time
Wean o2 as tolerated based on symptomatology/hospice assistance
Anti-secretory meds.
appreciate hospice team
Pt was weaned to 2L NC at NH.
Persistent hypoxic requring HFNC
CXR this admission noted New area of patchy parenchymal opacity within the left upper to midlung, suggesting a new focal area of pneumonia.
CT chest negative for PE.
He recently completed empiric Zosyn during hospital stay
Procal mildly elevated at 0.32
Zosyn has been transitioned off to Meropenem.
Speech re-evaluated on 01/02-IDDS6. However, improvement was seen while patient was NPO. Need to closely monitor O2 status with restarting of diet.
noted recent VSE 12/24 cleared for mince moist diet
Midodrine dose increased to 10mg TID
Levophed started and wean off as tolerated
Cont with bronchodilators
Decreased airway clearance remains to be the biggest hindrance for oxygenation improvement
Spiking fever once again with reinitiation of diet.
Patient with mild decrease in FiO2 which is only noticed during patient being NPO worsening of oxygenation with reinitiation of diet.
Speech recommending IDDSI 6 but only provide P.O. if Sp02 >90% and RR <30 (no longer applicable given comfort goals as above)
per , he suffered a shoulder fracture by hitting his arm against a metal bar.
Shoulder X-ray noted healing subacute right humeral neck fracture but possible blastic osseous metastatic disease.
Finding was discussed with patient and and they preferred to NOT further investigate the blastic bone lesions.
PSA was sent, WNL at 2.6
Pt was recently started with Cardizem 30 mg TID with holding parameter
pt was recently started with Eliquis 5 mg BID
Hold anti-spasm muscle as high risk of aspiration
Pt taken off benzo recently
�
DVT prophylaxis: Eliquis
Code: DNR/DNI
discussed with patient's daughter Naye and pt's Kasia
I spent a total of 40 minutes with the patient or on the floor. More than 50% of this time involved counseling and coordination of care.
Anticipated Discharge: 24 - 48 hours
Subjective/Interval History
-
Date of Service: January 08, 2024
agonal breathing on morphine gtt. Daughter Naye present during evaluation.
Objective Data
-
Vital Signs:
Vital Signs
Temp Pulse Resp BP Pulse Ox
98.5 F 141 12 135/85 96
01/07/24 20:15 01/07/24 20:15 01/07/24 20:15 01/07/24 20:15 01/07/24 20:15
I&O
01/06/24 01/07/24 01/08/24
06:59 06:59 06:59
Intake Total 112 / 112 0 / 0
Output Total 975 / 975 985 / 985 450 / 450
Balance -863 / -863 -985 / -985 -450 / -450
[2024-01-08 07:45] VITALS: BP 120/76
--- NOTE | 2024-01-08 15:07 | HOSPNOTE ---
Messaged attending and asked if we could increase the drip to step 3. The patient looks very uncomfortable, increased respirations. Attending agreed and will put order in. Emotional support provided to family.
[2024-01-08] MEDS: MORPHINE SULFATE 4 MG IV ×3 (15:40→17:17)
[2024-01-08 17:28] VITALS: BP 93/63
--- NOTE | 2024-01-08 17:30 | PTCARENOTE ---
pt increased to step 3 gtt this afternoon per MD order. pt with 93/63 BP, HR 141 and 102.7 temp. See MAR for proper documentation of prn doses and treatment for temperature. whole bed bath done this AM by this nurse, colostomy bag change and
suprapubic cleaned. family remains at bedside. daughters and sister educated on non-verbal signs that patient is having respiratory distress and also what some end of life physical signs may be as they remain at the bedside.
--- NOTE | 2024-01-08 18:14 | W.PN.DEATH ---
Pronouncement of
-
Called to see patient to pronounce.
No spontaneous heart tones or respirations noted.
Patient not responsive to verbal stimuli.
Patient is pronounced .
Time of : 18:05
Date of : 01/08/24
Cause of : respiratory failure due to recurrent aspiration pneumonia 2/2 chronic dysphagia w/ hx quadriplegia d/t spinal cord stroke
Family Notified: Yes
--- NOTE | 2024-01-08 18:30 | W.DCSUMMARY ---
Discharge Summary
Discharge Data
Date of Admission: 12/31/23
Date of Discharge: 01/08/24
-
Pending Results: No
Discharge Plan
-
Activity Restrictions/Additional Instructions:
Wound Care Instructions
Sacrum/buttocks-clean and dry skin, miconazole powder prn yeasty red skin, silicone border foam dressing, change q 3 days and prn loosened dressing.
L ischial ulcer-clean with saline, miconazole powder prn yeasty periwound skin, protective silicone border foam, change q 3 days and prn loosened dressing.
Abdominal old g tube site opening-clean with saline or soap and water, miconazole powder and zinc barrier ointment (i.e. Calazime) to irritated skin, alginate, ABD pad, secure with minimal silicone tape. Change daily and prn drainage.
L upper ear crease ulcer-clean with saline or soap and water, silicone foam, change q 3 days and prn loosened dressing. Pad o2 tubing/straps with non woven gauze or silicone foam over ears/cheeks.
Heels-Protective foam dressing, change q 3 days and prn loosened dressing.
Miconazole powder to affected areas bid.
Air mattress
Turning schedule
Elevate heels off bed; TruVue lite boots as tolerated (use pillow/air chair cushion to off load heels while boots off).
Follow up with wound acute care registered nurse as needed.
Referrals:
Mario Rodriguez I., DO [Family Provider] -
Prescriptions:
No Action
acetaminophen 325 MG tablet
650 mg PO Q6HPRN PRN (Reason: mild pain/temp>100F)
polyethylene glycol 3350 17 GRAMS powder in packet
17 grams PO HSPRN PRN (Reason: constipation)
miconazole nitrate [Zeasorb AF] 71 GM powder
1 applic topical BID
citalopram 10 mg Tablet
10 mg PO DAILY
tizanidine 4 mg tablet
8 mg PO QID
baclofen 20 mg tablet
40 mg PO HS
loperamide 2 mg Capsule
2 mg PO Q8HPRN PRN (Reason: diarrhea )
ipratropium-albuterol 0.5 mg-3 mg(2.5 mg base)/3 mL Solution For Nebulization
3 ml INHALATION R QID
ipratropium-albuterol 0.5 mg-3 mg(2.5 mg base)/3 mL Solution For Nebulization
3 ml INHALATION R Q4HPRN PRN (Reason: SOB, wheezing)
ketoconazole 2 % Shampoo
1 applic TOPICAL WE
lidocaine 4 % Adhesive Patch,Medicated
1 patch TOPICAL DAILYPRN PRN (Reason: r proximal humerus)
baclofen 20 mg Tablet
20 mg PO BID
gabapentin 800 mg Tablet
800 mg PO TID
ibuprofen [Advil] 200 mg Tablet
600 mg PO Q6HPRN PRN (Reason: high temp/mild pain)
magnesium citrate Solution
150 ml PO BIDPRN PRN (Reason: if no bm aftr miralax)
midodrine 2.5 mg Tablet
2.5 mg PO Q4HPRN PRN (Reason: sbp less than 80)
nystatin 100,000 unit/gram Powder
1 applic TOPICAL DAILYPRN PRN (Reason: peg tub- removal site)
nystatin 100,000 unit/gram Powder
1 applic TOPICAL DAILY
Rx Instructions:
peg tube-removal site
carboxymethylcellulose sodium 1 % Drops
1 drp BOTH EYES Q6HPRN PRN (Reason: dry eyes)
midodrine 5 mg tablet
5 mg PO TID
diltiazem HCl 30 mg Tablet
30 mg PO TID Qty: 90 0RF
Rx Instructions:
Hold for SBP < 110
Eliquis 5 mg Tablet
5 mg PO BID Qty: 60 0RF
prednisone 10 mg tablet
See Rx Instructions .ROUTE .COMPLEX
Rx Instructions:
Take By Mouth:
40 mg daily x3 days, 30 mg daily x3 days,
20 mg daily x3 days, 10 mg daily x3 days.
guaifenesin 600 mg tablet extended release 12hr
1,200 mg PO Q12
Discharge Date and Time
Print Language: CYPRIOT
--- NOTE | 2024-01-08 18:45 | PTCARENOTE ---
[facility] alled at 1832. pt candidate for possible cornea/eye donation. next of kin to be called by [facility]. family remains at bedside. morphine gtt taken down and wasted with witness in medication room.
== END 2024-01-08 18:05 | disposition expired | DRG 177 ==
LOC: 2 NORTH 10:27
PROVIDERS: Hospitalist; Physician Assistant; ADMITTING PHYSICIAN Internal Medicine; ATTENDING PHYSICIAN Internal Medicine; CONSULT PHYSICIAN Internal Medicine Critical Care Medicine; EMERGENCY PHYSICIAN Student in an Organized Health Care Education/Training Program; FAMILY PHYSICIAN Internal Medicine; OTHER PHYSICIAN Internal Medicine Infectious Disease
PROC: 5A0935A Assistance with Respiratory Ventilation, Less than 24 Consecutive Hours, High Flow/Velocity Cannula (ICD-10-PCS; 2023-12-31)
PROC: 5A0945A Assistance with Respiratory Ventilation, 24-96 Consecutive Hours, High Flow/Velocity Cannula (ICD-10-PCS; 2024-01-02)
DX: J69.0 Pneumonitis due to inhalation of food and vomit (principal); G82.51 Quadriplegia, C1-C4 complete; J96.21 Acute and chronic respiratory failure with hypoxia; L89.154 Pressure ulcer of sacral region, stage 4; N39.0 Urinary tract infection, site not specified; Z16.24 Resistance to multiple antibiotics; J98.11 Atelectasis; D63.8 Anemia in other chronic diseases classified elsewhere; E11.65 Type 2 diabetes mellitus with hyperglycemia; F32.A Depression, unspecified; Z66 Do not resuscitate; I10 Essential (primary) hypertension; R57.8 Other shock; I95.89 Other hypotension; L89.812 Pressure ulcer of head, stage 2; Z93.59 Other cystostomy status; Z86.74 Personal history of sudden cardiac arrest; Z96.0 Presence of urogenital implants; F41.9 Anxiety disorder, unspecified; I48.0 Paroxysmal atrial fibrillation; N31.9 Neuromuscular dysfunction of bladder, unspecified; N32.89 Other specified disorders of bladder; M62.838 Other muscle spasm; R13.12 Dysphagia, oropharyngeal phase; R19.7 Diarrhea, unspecified; E87.6 Hypokalemia; S42.291D Other displaced fracture of upper end of right humerus, subsequent encounter for fracture with routine healing; W22.8XXD Striking against or struck by other objects, subsequent encounter; Z79.01 Long term (current) use of anticoagulants; Z79.899 Other long term (current) drug therapy; Z86.14 Personal history of Methicillin resistant Staphylococcus aureus infection; Z87.01 Personal history of pneumonia (recurrent); Z87.440 Personal history of urinary (tract) infections; Z87.442 Personal history of urinary calculi; Z90.49 Acquired absence of other specified parts of digestive tract; Z86.73 Personal history of transient ischemic attack (TIA), and cerebral infarction without residual deficits; Z93.3 Colostomy status
CPT/HCPCS: 36556; 71045; 71275; 76937; 80048; 80053; 82962; 83880; 84145; 84484; 85025; 85610; 87070; 87811; 92526; 92610; 93005; 94640; 94669; 96365; 99285; C1751; Q9967